=== PATIENT | male | born 1965 | race Caucasian/White ===

== ENCOUNTER → 2018-04-01 | Outpatient (CLI) | payer BC ==
--- NOTE | 2018-04-01 09:04 | MR ---
EXAMINATION TYPE: MR shoulder LT wo con DATE OF EXAM: 04/01/2018 COMPARISON: NONE HISTORY: Left shoulder pain, impingement syndrome, rotator cuff tendinitis, rotator cuff sprain, poss ible rotator cuff tear all per order. Pain with loss of strength and difficulty raising arm overhead for 5 weeks after tripping injury per patient. TECHNIQUE: Multiplanar, multisequence imaging of the left shoulder is performed without contrast. FINDINGS: Rotator Cuff: There is acute full-thickness retracted tear supraspinatus tendon retracted to level of acromioclavicular joint seen best paracoronal image 11. Full-thickness retracted tear of the infrasp inatus tendon is also present. There is focal fluid signal at this level extending to level of the po sterior margin of the humeral head. Subscapularis tendon is felt intact axial image 12 with surroundi ng fluid. There is perhaps mild generalized muscular atrophy. Acromioclavicular Joint: Moderate to severe narrowing and capsular hypertrophy with mild to moderate spurring at acromioclavicular joint is present. Distal acromion morphology is unremarkable. Some spur ring from inferior aspect distal clavicle affects the underlying fat plane. Distal clavicle is slight ly more inferior position relative to acromion. Glenohumeral Joint: Moderate glenohumeral joint effusion is seen. High riding humeral head is present . Moderate to severe superior narrowing is noted Labrum: Degenerative increased signal superior labrum noted paracoronal image 12 for reference. Biceps Tendon: The long head of biceps is in normal location within bicipital groove. Intracapsular p ortion shows thickening and slight increased signal. Bone marrow signal: Subchondral cystic change lateral humeral head is present. Other: No additional significant abnormality is appreciated. IMPRESSION: 1. Full-thickness retracted tears of the supraspinatus and infraspinatus tendons felt acute with high riding humeral head suggesting underlying instability. Other findings as noted above.
== END ==
LOC: RADMRIMAIN 08:15
PROVIDERS: ATTEND Orthopaedic Surgery Sports Medicine
DX: M75.102 Unspecified rotator cuff tear or rupture of left shoulder, not specified as traumatic (principal)

== ENCOUNTER → 2022-01-13 | Outpatient (CLI) | payer BC ==
--- NOTE | 2022-01-13 07:56 | US ---
"EXAMINATION TYPE: US abdomen complete DATE OF EXAM: 01/13/2022 COMPARISON: NONE CLINICAL HISTORY: 56-year-old male R10.89 ABD PAIN. TECHNIQUE: Multiple sonographic images of the abdomen are obtained. FINDINGS: EXAM MEASUREMENTS: Liver Length: 12.4 cm Gallbladder Wall: 0.2 cm CBD: 0.4 cm Spleen: 9.4 cm Right Kidney: 10.6 x 5.3 x 6.0 cm Left Kidney: 10.7 x 6.6 x 6.2 cm Pancreas: Obscured by bowel gas Liver: wnl Gallbladder: No stones seen Evidence for sonographic Garrett's sign: No CBD: wnl Spleen: wnl Right Kidney: No hydronephrosis or masses seen Left Kidney: upper pole cyst measures 3.3 x 2.8 x 2.9 cm. No hydronephrosis. Upper IVC: wnl Abd Aorta: distal AAA measures 5.2 x 5.4 cm, heavily calcified throughout. Unable to exclude signifi cant atherosclerotic narrowing at the bilateral proximal common carotid arteries which measure mildly aneurysmal at 2.3 and 2.0 cm on the right and left sides, respectively. IMPRESSION: 1. Incidental infrarenal abdominal aortic aneurysm measuring up to 5.4 cm. 2. Heavy atherosclerotic calcifications throughout extending to the mildly aneurysmal bilateral commo n iliac arteries which measure up to 2.3 cm. Unable to exclude significant common iliac artery stenos es. 3. No gallstones or biliary ductal dilatation. Suboptimal visualization of the pancreas. A Maverick level critical message alert has been initiated for Westley Barber MD via the [employer] [facility] | Critical Results System on 01/13/2022 4:53 AM. This message alert has been sent to Segun Barber MD via the preferences provided by the clinician for the receipt of Radiology Critical F indings. Message ID [id number]."
--- NOTE | 2022-01-13 12:28 | US ---
EXAMINATION TYPE: US carotid duplex BILAT DATE OF EXAM: 01/13/2022 COMPARISON: NONE CLINICAL HISTORY: 56-year-old male R09.89 CAROTID BRUIT. TECHNIQUE: Carotid duplex ultrasound examination. Indirect Doppler criteria was utilized. FINDINGS: EXAM MEASUREMENTS: RIGHT: Peak Systolic Velocity (PSV) cm/sec ----- Right CCA: 119.0 ----- Right ICA: 147.0 ----- Right ECA: 130.0 ICA/CCA ratio: 1.24 RIGHT: End Diastole cm/sec ----- Right CCA: 40.6 ----- Right ICA: 51.4 ----- Right ECA: 31.7 LEFT: Peak Systolic Velocity (PSV) cm/sec ----- Left CCA: 133.0 ----- Left ICA: 132.0 ----- Left ECA: 142.0 ICA/CCA ratio: 0.99 LEFT: End Diastole cm/sec ----- Left CCA: 45.4 ----- Left ICA: 44.6 ----- Left ECA: 31.7 VERTEBRALS (direction of flow): Right Vertebral: Antegrade Left Vertebral: Retrograde Rhythm: Normal HEALTH PLAN ADVISOR NOTES: Heavily calcified vessels throughout. Mildly elevated velocities on bilateral ECA' s & ICA's. Retrograde left vert. IMPRESSION: 1. Heavy atherosclerotic calcifications bilaterally. Measurements suggest moderate (50-69%) bilateral proximal ICA stenoses. 2. Retrograde flow detected left vertebral artery. Correlate for possible subclavian steal syndrome. Criteria for Assigning % of Stenosis / Diameter reduction (Estimation based on the indirect measurements of the internal carotid artery velocities (ICA PSV). 1. Normal (no stenosis)=ICA PSV < 125 cm/s: ratio < 2.0: ICA EDV<40 cm/s. 2. Less than 50% stenosis=ICA PSV < 125 cm/s: ratio < 2.0: ICA EDV<40 cm/s. 3. 50 to 69% stenosis=ICA PSV of 125 to 230 cm/s: ration 2.0 ? 4.0: ICA EDV 40-100 cm/s. 4. Greater than 70% stenosis to near occlusion= ICA PSV > 230 cm/s: ratio > 4.0: ICA EDV > 100 cm/s. 5. Near occlusion= ICA PSV velocities may be low or undetectable: variable ratio and ICA EDV. 6. Total occlusion=unable to detect flow.
== END | disposition home or self-care (01) ==
LOC: RADUSWWP 06:59
PROVIDERS: ATTEND Family Medicine
DX: I65.23 Occlusion and stenosis of bilateral carotid arteries (principal); F17.200 Nicotine dependence, unspecified, uncomplicated
CPT/HCPCS: 76700; 93880

== ENCOUNTER → 2022-01-20 | Outpatient (CLI) | payer BC ==
--- NOTE | 2022-01-20 08:18 | CTL ---
EXAMINATION TYPE: CT Low Dose Lung DATE OF EXAM ORDERED: 01/20/2022 HISTORY: Long-term tobacco use. Lung cancer screening CT DLP: 114.[address] CTDI: 2.9 mGy Automated exposure control for dose reduction was used. SCREENING VISIT: Baseline COMPARISON: None TECHNIQUE: Low dose computed tomography scan was performed through the chest at 1 mm thick sections a nd reconstructed images in multiple planes at 1 mm and [address] DIAGNOSTIC QUALITY: Satisfactory FINDINGS: LUNG NODULES: Present, detailed below: There is a 6 x 5 mm peripheral LLL nodule on axial image 166. There is a 5 x 4 mm peripheral RUL nodule on axial image 53. LUNGS: COPD: Severity: Mild Fibrosis: Severity: Mild biapical Lymph nodes: None Other findings: RIGHT PLEURAL SPACE: Effusion: None Calcification: None Thickening: None Pneumothorax: None LEFT PLEURAL SPACE: Effusion: None Calcification: None Thickening: None Pneumothorax: None HEART: Heart Size: Normal Coronary Calcification: Large Pericardial Effusion: None OTHER FINDINGS: Upper abdomen: None Bony thorax: There is S-shaped scoliotic curvature Supraclavicular region: None Other: Moderate calcified plaque aortic arch extends into 3 vessels IMPRESSION: Mild emphysematous change with diffuse small nodules up to [address] LUNG RAD AND CT CHEST RECOMMENDATION: Lung-Rad 2 Benign Appearance or Behavior: Continue annual sc reening with LDCT in 12 months. S Modifier (other clinically significant findings): S Severe coronary artery calcification should be correlated with additional cardiac risk factors
== END | disposition home or self-care (01) ==
LOC: RADCTMAIN 06:33
PROVIDERS: ATTEND Family Medicine
DX: Z12.2 Encounter for screening for malignant neoplasm of respiratory organs (principal); J43.9 Emphysema, unspecified; Z87.891 Personal history of nicotine dependence
CPT/HCPCS: 71271

== ENCOUNTER 2023-05-21 07:33 | Inpatient (IN) | payer OTHER ==
--- NOTE | 2023-05-21 07:58 | ED ---
General Adult HPI - General Chief complaint: Shortness of Breath Stated complaint: SOB Time Seen by Provider: 05/21/23 07:48 Source: patient, EMS Mode of arrival: EMS Limitations: no limitations - History of Present Illness Initial comments: Dictation was produced using [employer] dictation software. please excuse any grammatical, word or spelling errors. Chief Complaint: 57-year-old male with past medical history of COPD presents to the emergency department for dyspnea History of Present Illness: Patient is a 57-year-old male has past medical history of COPD and heart conditions. Patient states he became short of breath at approximately 3 PM. Patient was brought in from home by EMS. EMS states that patient had acute respiratory symptoms beginning at 3 AM in the morning. Upon initial evaluation EMS states that patient appeared to be significantly distressed with pale skin and lethargy. He was placed on positive airway ventilation with improvement of his condition. He was given 1 albuterol and brought to the ER with lights and sirens. According to EMS patient's symptomatology significantly improved. They were not able to get a blood pressure however he was found to be tachycardic. Patient at the bedside able to provide history of present illness states that he has heart and lung conditions. Does not know if he has history of heart failure. States that he is allergic to statins. Patient states he went to bed fine last night woke up abruptly due to severe dyspnea. The ROS documented in this emergency department record has been reviewed and confirmed by me. Those systems with pertinent positive or negative responses rivas ve been documented in the HPI. All other systems are other negative and/or noncontributory. - Related Data Home Medications Medication Instructions Recorded Confirmed Adhs 2 tab PO BID 05/21/23 05/21/23 Aspirin EC [Ecotrin Low Dose] 81 mg PO DAILY 05/21/23 05/21/23 Bio-3b-G 3 tab PO DAILY 05/21/23 05/21/23 Bio-C-Plus 1 - 3 tab PO DAILY 05/21/23 05/21/23 De-Stress 1 tab PO DAILY 05/21/23 05/21/23 Purified Chondroitin Sulfates 1 - 3 tab PO DAILY 05/21/23 05/21/23 Super Beets Chew 2 tab PO DAILY 05/21/23 05/21/23 Allergies Allergy/AdvReac Type Severity Reaction Status Date / Time [id number] Reductase AdvReac Unknown Verified 05/21/23 09:30 Inhibitor Review of Systems ROS Statement: Those systems with pertinent positive or pertinent negative responses have been documented in the HPI. ROS Other: All systems not noted in ROS Statement are negative. Past Medical History Past Medical History: COPD Additional Past Medical History / Comment(s): tripple A 5.5, History of Any Multi-Drug Resistant Organisms: None Reported Past Surgical History: Orthopedic Surgery Past Psychological History: No Psychological Hx Reported Smoking Status: Current every day smoker Past Alcohol Use History: Occasional Past Drug Use History: Marijuana General Exam - General Exam Comments Initial Comments: PHYSICAL EXAM: General Impression: Alert and oriented x3, not in acute distress, CPAP in place HEENT: Normocephalic atraumatic, extra-ocular movements intact, pupils equal and reactive to light bilaterally, mucous membranes moist. Cardiovascular: Heart regular rate and rhythm Chest: Mild retractions, mild tachypnea, diffuse crackles Abdomen: abdomen soft, non-tender, non-distended, no organomegaly Musculoskeletal: Pulses present and equal in all extremities, 1+ pitting edema Motor: no focal deficits noted Neurological: CN II-XII grossly intact, no focal motor or sensory deficits noted Skin: Intact with no visualized rashes Psych: Normal affect and mood Limitations: no limitations Course Vital Signs 05/21/23 05/21/23 05/21/23 07:34 07:43 07:44 Temperature Pulse Rate 122 H Respiratory 32 H 32 H Rate Blood Pressure 118/101 O2 Sat by Pulse 95 Oximetry Fraction of Inspired Oxygen (FIO2) 05/21/23 05/21/23 05/21/23 07:46 07:51 07:53 Temperature 97 F L Pulse Rate Respiratory Rate Blood Pressure O2 Sat by Pulse Oximetry Fraction of 100 70 Inspired Oxygen (FIO2) 05/21/23 05/21/23 05/21/23 08:38 08:52 08:57 Temperature Pulse Rate 109 H Respiratory 28 H Rate Blood Pressure 121/84 O2 Sat by Pulse 92 L Oximetry Fraction of 50 70 Inspired Oxygen (FIO2) 05/21/23 09:00 Temperature Pulse Rate Respiratory Rate Blood Pressure O2 Sat by Pulse 96 Oximetry Fraction of Inspired Oxygen (FIO2) - Reevaluation(s) Reevaluation #1: 05/21/23 07:57 [id number] bedside ultrasound was performed showing lung Rockets in anterior upper lung arriola bilaterally suggesting component of left ventricular heart failure Reevaluation #2: 05/21/23 08:30 More history was obtained from who is a medical professional states that he has been seeing upper extremity surgeon for labile blood pressures and l heart rates. Has not had an echocardiogram. Apparently he is scheduled for an echocardiogram soon. He had some pot roast last night which she states was salty and taste. request that patient be transferred to [facility] system which is where he gets most of his medical care. Reevaluation #3: 05/21/23 08:48 I was able to obtain an EKG from May 12, 2023. EKG compared to today's EKG showing worsening widening of the QRS. There is a left bundle branch block. EKG does not meet Sgarbossa criteria. Reevaluation #4: 05/21/23 08:58 Family requested patient be transferred to [facility]. Spoke with Celia from [facility] transfer line states that they have long waits for transfers. It was explained that it may be more than 24 hours before patient will be physically transferred to [facility]. This was discussed with family and they are request was that patient be admitted here to see our team. Reevaluation #5: 05/21/23 09:32 Case discussed in detail with Dr. Urbano including EKG, lab studies including troponin, clinical presentation and x-ray. Patient likely will need a cardiac catheterization. Dr. Urbano states that he will be rounding on the patient soon. Patient started on heparin and given aspirin. EKG Findings - EKG Comments: EKG Findings:: My EKG interpretation: Ventricular rate 117, sinus tachycardia, parable 181, cures 142, QTc 396. No NE prolongation, no QTC prolongation, no ST or T-wave changes noted. No old EKG for comparison, left bundle branch block Medical Decision Making - Medical Decision Making Was pt. sent in by a medical professional or institution (, PA, CORPORATE [employer], urgent care, hospital, or alf...) When possible be specific @ -No Did you speak to anyone other than the patient for history (EMS, parent, family, police, friend...)? What history was obtained from this source @ -Patient's medical details were discussed with at the bedside. See ab ove Case also discussed with EMS Did you review nursing and triage notes (agree or disagree)? Why? @ -I reviewed and agree with nursing and triage notes Were old charts reviewed (outside hosp., previous admission, EMS record, old EKG, old radiological studies, urgent care reports/EKG's, alf records)? Report findings @ -Previous EKG was reviewed from outside facility as discussed above Differential Diagnosis (chest pain, altered mental status, abdominal pain women, abdominal pain men, vaginal bleeding, musculoskeletal, weakness, fever, dyspnea, syncope, headache, dizziness, GI bleed, back pain, seizure, CVA, palpatations, mental health)? @ -Differential Dyspnea: Coronary syndrome, arrhythmia, tamponade, asthma, COPD, pulmonary embolism, pneumonia, pneumothorax, pulmonary effusion, anaphylaxis, diabetic ketoacidosis, flailed chest, pulmonary contusion, diaphragmatic rupture, anemia, neuromuscular, this is not meant to be an all-inclusive list. EKG interpreted by me (3pts min.). @ -See above X-rays interpreted by me (1pt min.). @ -X-ray of the chest shows pulmonary edema CT interpreted by me (1pt min.). @ -None done U/S interpreted by me (1pt. min.). @ -None done What testing was considered but not performed or refused? (CT, X-rays, U/S, labs)? Why? @ -None What meds were considered but not given or refused? Why? @ -None Did you discuss the management of the patient with other professionals (professionals i.e. , PA, [employer], lab, RT, psych nurse, socially responsible investment adviser, routeman, teacher, youth probation officer, adult protective caseworker)? Give summary @ -See above. Case also discussed with Dr. Stein for admission Was smoking cessation discussed for >3mins.? @ -No Was critical care preformed (if so, how long)? @ -Yes, 33 minutes Were there social determinants of health that impacted care today? How? (Homelessness, low income, unemployed, alcoholism, drug addiction, transport ation, low edu. Level, literacy, decrease access to med. care, skilled nursing, rehab)? @ -No Was there de-escalation of care discussed even if they declined (Discuss DNR or withdrawal of care, Hospice)? DNR status @ -No What co-morbidities impacted this encounter? (DM, HTN, Smoking, COPD, CAD, Cancer, CVA, ARF, Chemo, Hep., AIDS, mental health diagnosis, sleep apnea, morbid obesity)? @ -None Was patient admitted / discharged? Hospital course, mention meds given and route, prescriptions, significant lab abnormalities, going to OR and other pertinent info. @ -57-year-old male presents to the emergency department for clinical presentation consistent with new onset cardiomyopathy likely ischemic. Vital signs upon arrival are within acceptable limits. Patient placed on BiPAP for several minutes given some Lasix. His blood pressure was soft and it was felt that nitroglycerin might reduce his blood pressure even further. He is improved with BiPAP therapy. Laboratory evaluation obtained showing stress leukocytosis of 18.2. Lactic acidosis of 4.1, troponin of 1.90 with a BNP of 4000. Chest x- ray shows pulmonary edema. Case discussed with cardiology. Patient denies any such ACS type symptoms. Patient will be admitted. Started on heparin given aspirin. Undiagnosed new problem with uncertain prognosis? @ -No Drug Therapy requiring intensive monitoring for toxicity (Heparin, Nitro, In sulin, Cardizem)? @ -No Were any procedures done? @ -No Diagnosis/symptom? Acute, or Chronic, or Acute on Chronic? Uncomplicated (without systemic symptoms) or Complicated (systemic symptoms)? @ -New onset cardiomyopathy Side effects of treatment? @ -No Exacerbation, Progression, or Severe Exacerbation? @ -No Poses a threat to life or bodily function? How? (Chest pain, USA, ME, pneumonia, PE, COPD, DKA, ARF, appy, cholecystitis, CVA, Diverticulitis, Homicidal, Suicidal, threat to staff... and all critical care pts) @ -yes - Lab Data Result diagrams: 05/21/23 07:50 05/21/23 07:50 Lab Results 05/21/23 05/21/23 05/21/23 Range/Units 07:50 07:50 07:50 WBC 18.2 H (3.8-10.6) k/uL RBC 5.29 (4.30-5.90) m/uL Hgb 16.8 (13.0-17.5) gm/dL Hct 51.1 (39.0-53.0) % MCV 96.5 (80.0-100.0) fL MCH 31.8 (25.0-35.0) pg MCHC 32.9 (31.0-37.0) g/dL RDW 13.3 (11.5-15.5) % Plt Count 286 (150-450) k/uL MPV 8.8 Neutrophils % 90 % Lymphocytes % 6 % Monocytes % 3 % Eosinophils % 1 % Basophils % 0 % Neutrophils # 16.4 H (1.3-7.7) k/uL Lymphocytes # 1.1 (1.0-4.8) k/uL Monocytes # 0.5 (0-1.0) k/uL Eosinophils # 0.1 (0-0.7) k/uL Basophils # 0.1 (0-0.2) k/uL PT 10.1 (10.0-12.5) sec INR 0.9 (<1.2) APTT 23.7 (22.0-30.0) sec Sodium 138 (137-145) mmol/L Potassium 5.1 (3.5-5.1) mmol/L Chloride 105 (98-107) mmol/L Carbon Dioxide 21 L (22-30) mmol/L Anion Gap 12 mmol/L BUN 25 H (9-20) mg/dL Creatinine 1.35 H (0.66-1.25) mg/dL Est GFR (CKD-EPI)AfAm 66 (>60 ml/min/1.73 sqM) Est GFR (CKD-EPI)NonAf 57 (>60 ml/min/1.73 sqM) Glucose 232 H (74-99) mg/dL Plasma Lactic Acid Osiel (0.7-2.0) mmol/L Calcium 9.8 (8.4-10.2) mg/dL Magnesium 2.2 (1.6-2.3) mg/dL Total Bilirubin 0.8 (0.2-1.3) mg/dL AST 85 H (17-59) U/L ALT 40 (4-49) U/L Alkaline Phosphatase 56 (38-126) U/L Troponin I (0.000-0.034) ng/mL NT-Pro-B Natriuret Pep 4450 pg/mL Total Protein 7.3 (6.3-8.2) g/dL Albumin 4.4 (3.5-5.0) g/dL 05/21/23 05/21/23 Range/Units 07:50 07:50 WBC (3.8-10.6) k/uL RBC (4.30-5.90) m/uL Hgb (13.0-17.5) gm/dL Hct (39.0-53.0) % MCV (80.0-100.0) fL MCH (25.0-35.0) pg MCHC (31.0-37.0) g/dL RDW (11.5-15.5) % Plt Count (150-450) k/uL MPV Neutrophils % % Lymphocytes % % Monocytes % % Eosinophils % % Basophils % % Neutrophils # (1.3-7.7) k/uL Lymphocytes # (1.0-4.8) k/uL Monocytes # (0-1.0) k/uL Eosinophils # (0-0.7) k/uL Basophils # (0-0.2) k/uL PT (10.0-12.5) sec INR (<1.2) APTT (22.0-30.0) sec Sodium (137-145) mmol/L Potassium (3.5-5.1) mmol/L Chloride (98-107) mmol/L Carbon Dioxide (22-30) mmol/L Anion Gap mmol/L BUN (9-20) mg/dL Creatinine (0.66-1.25) mg/dL Est GFR (CKD-EPI)AfAm (>60 ml/min/1.73 sqM) Est GFR (CKD-EPI)NonAf (>60 ml/min/1.73 sqM) Glucose (74-99) mg/dL Plasma Lactic Acid Osiel 4.1 H* (0.7-2.0) mmol/L Calcium (8.4-10.2) mg/dL Magnesium (1.6-2.3) mg/dL Total Bilirubin (0.2-1.3) mg/dL AST (17-59) U/L ALT (4-49) U/L Alkaline Phosphatase (38-126) U/L Troponin I 1.970 H* (0.000-0.034) ng/mL NT-Pro-B Natriuret Pep pg/mL Total Protein (6.3-8.2) g/dL Albumin (3.5-5.0) g/dL Disposition Clinical Impression: Cardiomyopathy Disposition: ADMITTED IP TO THIS HOSP Condition: Serious Referrals: Westley Barber MD [Primary Care Provider] - 1-2 days Decision Time: 09:40
[2023-05-21] MEDS: methylPREDNISolone SOD SUCCI 125 MG/2 ML VIAL IV STA (07:59)
[2023-05-21] MEDS: FUROSEMIDE 10 MG/ML 4 ML VIAL IV STA (08:02)
[2023-05-21 08:03] LABS: Basophils # (A) 0.1 k/uL (0-0.2); Basophils % (A) 0 %; Eosinophils # (A) 0.1 k/uL (0-0.7); Eosinophils % (A) 1 %; HCT 51.1 % (39.0-53.0); HGB 16.8 gm/dL (13.0-17.5); Lymphocytes # (A) 1.1 k/uL (1.0-4.8); Lymphocytes % (A) 6 %; MCH 31.8 pg (25.0-35.0); MCHC 32.9 g/dL (31.0-37.0); MCV 96.5 fL (80.0-100.0); Mean Platelet Volume 8.8; Monocytes # (A) 0.5 k/uL (0-1.0); Monocytes % (A) 3 %; Neutrophils # (A) 16.4 k/uL (1.3-7.7); Neutrophils % (A) 90 %; Platelet Count 286 k/uL (150-450); RBC 5.29 m/uL (4.30-5.90); RDW 13.3 % (11.5-15.5); WBC 18.2 k/uL (3.8-10.6)
[2023-05-21 08:12] LABS: INR 0.9 (<1.2); Partial Thromboplastin Time 23.7 sec (22.0-30.0); Prothrombin Time 10.1 sec (10.0-12.5)
[2023-05-21 08:13] LABS: ALT 40 U/L (4-49); African American GFR (CKD) 66 (>60 ml/min/1.73 sqM); Anion Gap 12 mmol/L; Blood Urea Nitrogen 25 mg/dL (9-20); Calcium 9.8 mg/dL (8.4-10.2); Carbon Dioxide 21 mmol/L (22-30); Chloride 105 mmol/L (98-107); Glucose 232 mg/dL (74-99); Non-African American GFR(CKD) 57 (>60 ml/min/1.73 sqM); Sodium 138 mmol/L (137-145); Total Bilirubin 0.8 mg/dL (0.2-1.3)
[2023-05-21 08:21] LABS: NT-Pro-B-Type Natriuretic Pept 4450 pg/mL
--- NOTE | 2023-05-21 08:25 | XR ---
EXAMINATION TYPE: XR chest 1V portable DATE OF EXAM: 05/21/2023 8:07 AM CLINICAL INDICATION:Male, 57 years old with history of SOB; COMPARISON: 01/20/2022 CT TECHNIQUE: XR chest 1V portable Frontal view of the chest. FINDINGS: Lungs/Pleura: There is no evidence of pleural effusion, focal consolidation, or pneumothorax. Pulmonary vascularity: Pulmonary vascular congestion. Heart/mediastinum: Cardiomediastinal silhouette is unremarkable. Musculoskeletal: No acute osseous pathology. IMPRESSION: mild pulmonary vascular congestion. Correlate with BNP for congestive heart failure.
[2023-05-21 08:28] LABS: AST 85 U/L (17-59); Albumin 4.4 g/dL (3.5-5.0); Alkaline Phosphatase 56 U/L (38-126); Magnesium 2.2 mg/dL (1.6-2.3); Potassium 5.1 mmol/L (3.5-5.1); Total Protein 7.3 g/dL (6.3-8.2)
[2023-05-21] MEDS ORDERED: NALOXONE 0.4 MG/ML 1 ML VIAL IV PRN (08:56)
[2023-05-21] MEDS ORDERED: HEPARIN SODIUM 1,000 UN/ML (10ML VL) IV PRN (09:32)
[2023-05-21] MEDS ORDERED: NITROGLYCERIN SL TABS 0.4 MG TAB SUBLINGUAL PRN (09:56)
--- NOTE | 2023-05-21 09:59 | P.CRDCN ---
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 He does admit to some episodes of chest pain and heaviness usually if his heart rate increases or if his blood pressure goes up over last few months. He [place] bilingual [place] and apparently no recent workup however and has not had an echo or stress test. With his PhD he was seeing a vascular surgeon without any recommendations for any intervention and additionally has a abdominal aortic aneurysm measuring approximately 5.1 cm. He is still smoking however down to approximately 1 cigarette per day. Has family history of mother with bypass in her 50s. 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 He admits that initially he felt a jittery sensation which normally happens when he has high blood pressure however developed more shortness of breath and not really any chest pain or pressure. He had mild tightness however currently states he does not have any actual chest tightness. He does have a history of left bundle-branch block however EKG does have sinus tachycardia with left bundle branch block with worsened ST elevation for V2 through V4 with borderline elevation in V5. White blood cell count 18, creatinine 1.3, lactic acid 4.1, AST 85, ALT 40, troponin 1.9, proBNP 4450. Chest x-ray shows diffuse pulmonary edema. He is currently on BiPAP however much more comfortable. He does admit to chronic mild kidney issues with creatinine stable 1.3. REVIEW OF SYSTEMS At the time of my exam: CONSTITUTIONAL: Denies fever or chills. CARDIOVASCULAR: Denies chest pain, +shortness of breath, orthopnea, PND or palpitations. RESPIRATORY: Denies cough. GASTROINTESTINAL: Denies abdominal pain, diarrhea, constipation, nausea or vomiting. MUSCULOSKELETAL: Denies myalgias. NEUROLOGIC: Denies numbness, tingling or weakness. ENDOCRINE: Denies fatigue, weight change, polydipsia or polyurina. GENITOURINARY: Denies burning, hematuria or urgency with micturation. HEMATOLOGIC: Denies history of anemia or bleeding. PHYSICAL EXAMINATION Vital signs reviewed. CONSTITUTIONAL: No apparent distress, however on bipap HEENT: Head is normocephalic. Pupils are equal, round. Sclerae anicteric. Mucous membranes of the mouth are moist. No JVD. No carotid bruit. CHEST EXAMINATION: +crackles. No chest wall tenderness is noted on palpation or with deep breathing. HEART EXAMINATION: Regular rate and rhythm. S1, S2 heard. No murmurs, gallops or rub. ABDOMEN: Soft, nontender. Positive bowel sounds. EXTREMITIES: 2+ peripheral pulses, no lower extremity edema and no calf tenderness. NEUROLOGIC EXAMINATION: Patient is awake, alert and oriented x3. ASSESSMENT 1. Non-STEMI 2. Acute on chronic heart failure, possibly systolic 3. Hypertension 4. Left subclavian steal 5. PAD 6. Coronary artery calcifications 7. Left bundle branch block 8. History of abdominal aortic aneurysm 5.1 9. Tobacco abuse 10. Family history of CAD 11. Chronic kidney disease, per patient stable at 1.3 PLAN Patient with acute heart failure which may be exacerbated by nonsteady. Patient however not having any angina like he has been having in terms of his normal chest pressure tightness currently. Discussed urgent heart catheterization however given multiple risk factors. Aspirin and heparin drip. Check 2-D echo. Further recommendations to follow. Past Medical History Past Medical History: COPD Additional Past Medical History / Comment(s): prabha Eagle 5.5, History of Any Multi-Drug Resistant Organisms: None Reported Past Surgical History: Orthopedic Surgery Past Psychological History: No Psychological Hx Reported Smoking Status: Current every day smoker Past Alcohol Use History: Occasional Past Drug Use History: Marijuana Medications and Allergies Home Medications Medication Instructions Recorded Confirmed Type Adhs 2 tab PO BID 05/21/23 05/21/23 History Aspirin EC [Ecotrin Low Dose] 81 mg PO DAILY 05/21/23 05/21/23 History Bio-3b-G 3 tab PO DAILY 05/21/23 05/21/23 History Bio-C-Plus 1 - 3 tab PO DAILY 05/21/23 05/21/23 History De-Stress 1 tab PO DAILY 05/21/23 05/21/23 History Purified Chondroitin Sulfates 1 - 3 tab PO DAILY 05/21/23 05/21/23 History Super Beets Chew 2 tab PO DAILY 05/21/23 05/21/23 History Allergies Allergy/AdvReac Type Severity Reaction Status Date / Time Qgbegox-MHD-[id number] Reductase AdvReac Unknown Verified 05/21/23 09:30 Inhibitor Physical Exam Vitals: Vital Signs Temp Pulse Resp BP Pulse Ox FiO2 05/21/23 09:00 96 05/21/23 08:57 70 05/21/23 08:52 50 05/21/23 08:38 109 H 28 H 121/84 92 L 05/21/23 07:53 70 05/21/23 07:51 97 F L 05/21/23 07:46 100 05/21/23 07:44 32 H 05/21/23 07:43 95 05/21/23 07:34 122 H 32 H 118/101 Intake and Output 05/20/23 05/21/23 05/21/23 22:59 06:59 14:59 Other: Weight 86.183 kg Results 05/21/23 07:50 05/21/23 07:50 Cardiac Enzymes 05/21/23 05/21/23 Range/Units 07:50 07:50 AST 85 H (17-59) U/L Troponin I 1.970 H* (0.000-0.034) ng/mL Coagulation 05/21/23 Range/Units 07:50 PT 10.1 (10.0-12.5) sec APTT 23.7 (22.0-30.0) sec CBC 05/21/23 Range/Units 07:50 WBC 18.2 H (3.8-10.6) k/uL RBC 5.29 (4.30-5.90) m/uL Hgb 16.8 (13.0-17.5) gm/dL Hct 51.1 (39.0-53.0) % Plt Count 286 (150-450) k/uL Comprehensive Metabolic Panel 05/21/23 Range/Units 07:50 Sodium 138 (137-145) mmol/L Potassium 5.1 (3.5-5.1) mmol/L Chloride 105 (98-107) mmol/L Carbon Dioxide 21 L (22-30) mmol/L BUN 25 H (9-20) mg/dL Creatinine 1.35 H (0.66-1.25) mg/dL Glucose 232 H (74-99) mg/dL Calcium 9.8 (8.4-10.2) mg/dL AST 85 H (17-59) U/L ALT 40 (4-49) U/L Alkaline Phosphatase 56 (38-126) U/L Total Protein 7.3 (6.3-8.2) g/dL Albumin 4.4 (3.5-5.0) g/dL Current Medications Generic Name Dose Route Start Last Admin Trade Name Freq PRN Reason Stop Dose Admin Heparin Sodium (Porcine) 0 unit 05/21/23 09:32 Heparin Sodium 1,000 Un/Ml (10ml Vl) IV PER PROTOCOL PRN Low PTT Protocol Sodium Chloride 1,000 mls @ 20 mls/hr 05/21/23 09:00 Saline 0.9% IV .Q24H [facility] Heparin Sodium/Sodium Chloride 250 mls @ 10 mls/hr 05/21/23 10:00 25,000 unit/ Sodium Chloride IV .Q24H [facility] Protocol 11.603 UNITS/KG/HR Naloxone HCl 0.2 mg 05/21/23 08:56 Naloxone 0.4 Mg/Ml 1 Ml Vial IV Q2M PRN Opioid Reversal Intake and Output 05/20/23 05/21/23 05/21/23 22:59 06:59 14:59 Other: Weight 86.183 kg Patient Weight 05/22/23 06:59 Weight 86.183 kg 05/21/23 07:50 05/21/23 07:50
[2023-05-21] MEDS: HEPARIN SODIUM 1,000 UN/ML (10ML VL) IV ONE ×2 (10:37→11:37)
[2023-05-21] MEDS: HEPARIN SOD,PORK IN 0.45% NACL 25,000 UNIT in 0.45% NACL 1 250ML.BAG IV SCH ×2 (10:38→14:34)
[2023-05-21] MEDS: ASPIRIN 325 MG TAB PO STA (10:39)
[2023-05-21] MEDS: ASPIRIN 81 MG PO STA (10:39)
[2023-05-21] MEDS: ATORVASTATIN 80 MG TAB PO STA (10:40)
[2023-05-21] MEDS: SODIUM CHLORIDE 0.9% 1,000 ML IV SCH ×2 (10:40→15:27)
[2023-05-21] MEDS ORDERED: HEPARIN SODIUM 1,000 UN/ML (10ML VL) ONE (10:45)
[2023-05-21] MEDS ORDERED: fentaNYL (PF) 50 MCG/ML 2 ML AMP ONE (10:45)
--- NOTE | 2023-05-21 11:03 | CA ---
Transthoracic Echo Report Name: Monica Franco Age: 57 Gender: M : 1965 Exam Date: 05/21/2023 11:05 Exam Location: [facility] Ht (in): 70 Wt (lb): 175 Ordering Physician: Miguel Urbano DO ([email or web address]) Attending/Referring Phys: Sole Molding Machine Operator Ryan Cardenas RD Procedure CPT: Indications: re: NSTEMI Cardiac Hx: Technical Quality: Technically difficult study Contrast 1: Total Dose (mL): Contrast 2: Total Dose (mL): MEASUREMENTS (Male / Female) Normal Values 2D ECHO LV Diastolic Diameter PLAX 6.2 cm 4.2 - 5.9 / 3.9 - 5.3 cm LV Systolic Diameter PLAX 5.3 cm IVS Diastolic Thickness 1.0 cm 0.6 - 1.0 / 0.6 - 0.9 cm LVPW Diastolic Thickness 1.1 cm 0.6 - 1.0 / 0.6 - 0.9 cm LV Relative Wall Thickness 0.3 LVOT Diameter 2.0 cm Aortic Root Diameter 3.2 cm LA Systolic Diameter LX 2.2 cm 3.0 - 4.0 / 2.7 - 3.8 cm LV Diastolic Volume MOD BP 110.9 cm??? 67 - 155 / 56 - 104 cm??? LV Systolic Volume MOD BP 69.1 cm??? 22 - 58 / 19 - 49 cm??? LV Ejection Fraction MOD BP 37.7 % >= 55 % LV Diastolic Volume MOD 4C 120.8 cm??? LV Systolic Volume MOD 4C 76.3 cm??? LV Ejection Fraction MOD 4C 36.9 % LV Diastolic Length 4C 9.2 cm LV Systolic Length 4C 8.6 cm LV Diastolic Volume MOD 2C 87.3 cm??? LV Systolic Volume MOD 2C 52.1 cm??? LV Ejection Fraction MOD 2C 40.4 % LV Diastolic Length 2C 7.8 cm LV Systolic Length 2C 7.0 cm LA Volume 55.7 cm??? 18 - 58 / 22 - 52 cm??? LA Volume Index 28.0 cm???/m??? 16 - 28 cm???/m??? DOPPLER AV Peak Velocity 59.6 cm/s AV Peak Gradient 1.4 mmHg LVOT Peak Velocity 60.4 cm/s LVOT Peak Gradient 1.5 mmHg LVOT Velocity Time Integral 7.9 cm LVOT Stroke Volume 23.8 cm??? LVOT Stroke Volume Index 12.1 ml/m??? AV Area Cont Eq pk 3.0 cm??? MV Peak Velocity 92.7 cm/s MV Peak Gradient 3.4 mmHg MV Mean Velocity 44.5 cm/s MV Mean Gradient 1.0 mmHg MV Velocity Time Integral 18.8 cm MR Peak Velocity 304.2 cm/s MR Peak Gradient 37.0 mmHg Mitral E Point Velocity 73.3 cm/s Mitral A Point Velocity 34.2 cm/s Mitral E to A Ratio 2.1 MV Deceleration Time 113.5 ms FINDINGS Left Ventricle Moderate left ventricular dilatation. Apical akinesis. Left ventricular ejection fraction is estimated at 10-15 %. Right Ventricle Normal right ventricular size. Right Atrium Normal right atrial size. Left Atrium Mild left atrial dilatation. LA volume index= 28ml/m2 Mitral Valve Structurally normal mitral valve. Mild MR. Aortic Valve Aortic valve not well visualized. No aortic stenosis. No aortic regurgitation. Tricuspid Valve Structurally normal tricuspid valve. Trace TR. Pulmonic Valve Pulmonic valve not well visualized. Pericardium Not well visualized. Aorta Normal size aortic root. CONCLUSIONS Technically limited views. Moderate LV cavity dilatation. Severely reduced LV systolic function. LVEF 10-15% Globally reduced LV systolic function, along with apical akinesis Mild pansystolic MR No pericardial effusion Previewed by: Dr Jt Cortez (Electronically Signed) Final Date: 21 May 2023 11:02
[2023-05-21] MEDS: SODIUM CHLORIDE 0.9% 1,000 ML IV ONE (11:14)
[2023-05-21] MEDS: LIDOCAINE 1% INJ 10MG/ML (30 ML VIAL-PF) SQ ONE (11:21)
[2023-05-21] MEDS: VERAPAMIL SYRINGE (5 MG/10 ML) INTRAARTER ONE (11:22)
[2023-05-21] MEDS: MIDAZOLAM 2 MG/2 ML VIAL IVP ONE ×2 (11:24→13:03)
[2023-05-21] MEDS: fentaNYL (PF) 50 MCG/1 ML VIAL IVP ONE (11:25)
[2023-05-21] MEDS ORDERED: TICAGRELOR 90 MG TAB ONE (11:46)
[2023-05-21] MEDS: HEPARIN SODIUM 1,000 UN/ML (10ML VL) IVP ONE (11:50)
[2023-05-21] MEDS: IOPAMIDOL-370 100ML BTL INJ ONE ×2 (11:51→12:54)
[2023-05-21] MEDS: TICAGRELOR 90 MG TAB PO ONE (11:54)
[2023-05-21] MEDS: FUROSEMIDE 10 MG/ML 4 ML VIAL IV ONE (11:55)
[2023-05-21] MEDS ORDERED: FUROSEMIDE 10 MG/ML 4 ML VIAL ONE (11:55)
[2023-05-21] MEDS: NITROGLYCERIN 1000MCG/10ML SYRINGE INTRACORON ONE (11:58)
[2023-05-21] MEDS: NITROGLYCERIN-D5W PMX 50 MG in DEXTROSE/WATER 1 250ML.BAG IV ONE (12:04)
[2023-05-21] MEDS: TIROFIBAN 12.5MG-250ML NS 250 ML IV ONE (12:05)
[2023-05-21] MEDS ORDERED: hydrALAZINE HCL 20 MG/ML 1 ML VIAL ONE (13:20)
[2023-05-21] MEDS: hydrALAZINE HCL 20 MG/ML 1 ML VIAL IVP ONE (13:20)
[2023-05-21] MEDS: IOPAMIDOL-300 100ML BTL INJ ONE (13:27)
[2023-05-21 14:10] LABS: Glucose,Whole Blood 180 mg/dL (70-110)
[2023-05-21 14:41] LABS: Basophils % (A) 0 %; Eosinophils # (A) 0.1 k/uL (0-0.7); Eosinophils % (A) 1 %; HCT 48.7 % (39.0-53.0); HGB 16.3 gm/dL (13.0-17.5); Lymphocytes # (A) 0.4 k/uL (1.0-4.8); Lymphocytes % (A) 3 %; MCHC 33.4 g/dL (31.0-37.0); MCV 95.6 fL (80.0-100.0); Mean Platelet Volume 8.2; Monocytes # (A) 0.3 k/uL (0-1.0); Monocytes % (A) 2 %; Neutrophils # (A) 15.8 k/uL (1.3-7.7); Neutrophils % (A) 95 %; Platelet Count 249 k/uL (150-450); RBC 5.09 m/uL (4.30-5.90); WBC 16.7 k/uL (3.8-10.6)
[2023-05-21 14:57] LABS: Partial Thromboplastin Time 95.9 sec (22.0-30.0); Prothrombin Time 10.9 sec (10.0-12.5)
[2023-05-21] MEDS: SODIUM BICARB (1 MEQ/ML) 12.5 ML in DEXTROSE 5% IN WATER 500 ML IV SCH (15:26)
[2023-05-21 15:38] LABS: Chol/HDL Ratio 5.47 Ratio; LDL Cholesterol,Calculated 163.4 mg/dL (0.0-131.0)
[2023-05-21 17:11] LABS: Partial Thromboplastin Time 39.6 sec (22.0-30.0); Prothrombin Time 10.9 sec (10.0-12.5)
[2023-05-21] MEDS: NITROGLYCERIN-D5W PMX 50 MG in DEXTROSE/WATER 1 250ML.BAG IV SCH (18:08)
[2023-05-21 18:33] LABS: African American GFR (CKD) 81 (>60 ml/min/1.73 sqM); Anion Gap 7 mmol/L; Blood Urea Nitrogen 33 mg/dL (9-20); Carbon Dioxide 17 mmol/L (22-30); Chloride 113 mmol/L (98-107); Glucose 147 mg/dL (74-99); Non-African American GFR(CKD) 70 (>60 ml/min/1.73 sqM); Sodium 137 mmol/L (137-145)
[2023-05-21 18:59] LABS: Potassium 4.6 mmol/L (3.5-5.1)
[2023-05-21 19:00] LABS: LDH 1526 U/L (120-246)
--- NOTE | 2023-05-21 19:31 | HP ---
HISTORY AND PHYSICAL CHIEF COMPLAINT: Shortness of breath. HISTORY OF PRESENT ILLNESS: This is the first known admission for this 57-year-old white male with advanced atherosclerotic cardiovascular disease. He has been a heavy smoker. For years, he has had hypertension and he had been found a year or so ago to have an abdominal aortic aneurysm and left subclavian steal. He was referred to [facility], where they were going to follow him and made numerous recommendations regarding not smoking, keeping his blood pressure under control, statins, etc. The patient is a significant denier. He will not take blood pressure medications, statins, etc. He was recently in the office and it was felt that the aneurysm was becoming quite large. [facility] had requested that he undergo further studies, which he has not done. Arrangements were made if some of these would be done. He has never had a coronary artery evaluation. When he was in the office recently, he stated he was taking numerous vitamin preparations as well as some other homeopathic things and that his "blood pressure was going down and he felt like the aneurysm was getting smaller." In the middle of the night, he developed extreme shortness of breath and came to the hospital where he was in acute congestive heart failure, pulmonary edema. Troponins were elevated. His EKG demonstrated ST-segment elevation in the precordial leads. He denied chest pain. REVIEW OF SYSTEMS: Otherwise noncontributory. He was not diaphoretic, nauseated and he had no aching in the jaw, arms, back, etc. His BNP was 4450 and the 1st troponin was up at 1.970. Lactic acid was 4.1. Remainder of history is unremarkable other than his smoking history. PHYSICAL EXAMINATION: VITAL SIGNS: Blood pressure was 112/64 with a pulse of 88 and regular. GENERAL: He appeared to be in no acute distress with BiPAP in place. HEAD, EARS, EYES, NOSE, MOUTH, AND THROAT: Otherwise normal. CHEST: Demonstrated decreased breath sounds with extensive rales throughout. CARDIAC: Demonstrates sinus rhythm. ABDOMEN: Soft. EXTREMITIES: Normal. IMPRESSION: 1. Acute anterior ST elevation myocardial infarction. 2. Acute pulmonary edema. 3. Advanced atherosclerotic cardiovascular disease. 4. Abdominal aortic aneurysm. 5. Left subclavian steal. 6. Chronic obstructive pulmonary disease. PLAN: Consult Cardiology and the patient will be taken to the chemistry lab instructor. MMODL / IJN: [id number] /
[2023-05-21] MEDS: FUROSEMIDE 10 MG/ML 4 ML VIAL IV SCH (20:20)
[2023-05-21] MEDS: TICAGRELOR 90 MG TAB PO SCH (20:20)
[2023-05-22 00:52] LABS: Glucose,Whole Blood 138 mg/dL (70-110)
[2023-05-22 01:42] LABS: Glucose 137 mg/dL (74-99)
[2023-05-22 01:43] LABS: African American GFR (CKD) 82 (>60 ml/min/1.73 sqM); Blood Urea Nitrogen 39 mg/dL (9-20); Calcium 9.1 mg/dL (8.4-10.2); Carbon Dioxide 19 mmol/L (22-30); Non-African American GFR(CKD) 71 (>60 ml/min/1.73 sqM); Potassium 4.3 mmol/L (3.5-5.1); Sodium 136 mmol/L (137-145)
[2023-05-22 02:07] LABS: LDH 1999 U/L (120-246)
[2023-05-22 02:12] LABS: Anion Gap 7 mmol/L; Chloride 110 mmol/L (98-107)
[2023-05-22 02:16] LABS: Partial Thromboplastin Time 33.1 sec (22.0-30.0)
[2023-05-22] MEDS: ALPRAZolam 0.5 MG TAB PO PRN (02:25)
[2023-05-22] MEDS: HEPARIN SODIUM 1,000 UN/ML (10ML VL) IV PRN (02:34)
[2023-05-22 04:57] LABS: Basophils % (A) 0 %; Eosinophils # (A) 0.1 k/uL (0-0.7); Eosinophils % (A) 1 %; HCT 42.4 % (39.0-53.0); HGB 14.1 gm/dL (13.0-17.5); Lymphocytes # (A) 1.1 k/uL (1.0-4.8); Lymphocytes % (A) 6 %; MCH 31.4 pg (25.0-35.0); MCHC 33.2 g/dL (31.0-37.0); MCV 94.7 fL (80.0-100.0); Mean Platelet Volume 8.4; Monocytes # (A) 1.1 k/uL (0-1.0); Monocytes % (A) 6 %; Neutrophils # (A) 17.8 k/uL (1.3-7.7); Neutrophils % (A) 87 %; Platelet Count 194 k/uL (150-450); RBC 4.48 m/uL (4.30-5.90); RDW 13.1 % (11.5-15.5); WBC 20.4 k/uL (3.8-10.6)
[2023-05-22 05:24] LABS: African American GFR (CKD) >90 (>60 ml/min/1.73 sqM); Anion Gap 6 mmol/L; Blood Urea Nitrogen 40 mg/dL (9-20); Carbon Dioxide 19 mmol/L (22-30); Chloride 111 mmol/L (98-107); Glucose 131 mg/dL (74-99); Magnesium 2.1 mg/dL (1.6-2.3); Non-African American GFR(CKD) 78 (>60 ml/min/1.73 sqM); Potassium 4.2 mmol/L (3.5-5.1); Sodium 136 mmol/L (137-145)
[2023-05-22 05:39] LABS: Glucose,Whole Blood 143 mg/dL (70-110)
[2023-05-22 06:18] LABS: LDH 1860 U/L (120-246)
[2023-05-22] MEDS ORDERED: HEPARIN SODIUM,PORCINE (1 ML) 2,500 UNIT in SODIUM CHLORIDE 0.9% 250 ML IRRIGATION PRN (07:00)
[2023-05-22] MEDS ORDERED: HEPARIN SODIUM,PORCINE 10,000 UNIT in SODIUM CHLORIDE 0.9% 1,000 ML IRRIGATION PRN (07:00)
--- NOTE | 2023-05-22 08:08 | P.PRCINT ---
Percutaneous Coronary Int. - Percutaneous Coronary Intervention Percutaneous Coronary Intervention: PROCEDURES PERFORMED: Left heart catheterization, bilateral coronary angiography, ultrasound guided arterial access, Impella CP placement from right femoral approach, Penumbra aspiration thrombextomy LAD, PCI left main into LAD with a 3.0 x 38mm Xience LEONARD, post dilated with a 4.0 NC, balloon angioplasty of circumflex with a 2.5 balloon, IVUS LAD, PCI RCA with overlapping 4.0 x 33mm distally, 4.0 x 38mm Xience LEONARD proximally, post dilated with a 5.0 mm NC balloon, shockwave lithotripsy angioplasty RCA with a 4.0 balloon DATE: 05/21/2023 INDICATION: NSTEMI, cardiogenic shock CONSENT:I have discussed the risks, benefits and alternative therapies for the above-mentioned procedure and for both sedation/analgesia as well as necessary blood product administration, if indicated, as they pertain to this patient. T he patient has indicated understanding and acceptance of the risks and procedures discussed. PROCEDURE: After the risks, benefits and alternatives of the above mentioned procedure explained in detail with the patient, informed consent was obtained. Patient was taken to the catheterization lab and prepped and draped in usual fashion. Ultrasound guidance was used to assess for arterial access. 1% lidocaine was used to anesthetize the right radial artery. A 6-Samoan sheath was placed in the right radial artery using modified Seldinger technique and ultrasound guidance. Left coronary angiography was performed with a 5-Samoan JL 3.5 catheter and right coronary angiography was performed with a 5-Samoan FR5 catheter in various views. A 5-Samoan FR5 catheter was inserted into the left ventricle and pressure measurements were obtained. Patient in respiratory distress on BIPAP with signs of cardiogenic shock and extremely elevated LVEDP and therefore decision made to place Impella. Case was discussed with cardiothoracic surgeon and given LAD lesion appearing thrombus and ARIEL 2 flow in LAD, decision made to perform immediate intervention. Right femoral access was obtained with micropuncture access and ultrasound and a 6Fr sheath was placed. A femoral angiogram showed adequate anatomy for Impella. 2 Percloses were placed at the 10 and 2 oclock position. A 14 Fr sheath was miller анна over a stiff wire. A pigtail was placed in the LV and was exchanged for an Impella CP. Care was taken when crossing his abdominal aortic aneurysm which was visible outline on Xray. The Impella was turned on with good flow of approximately 3.5 L/min. Heparin was given for ACT > 250. A 6Fr CLS 4.0 guide catheter was used to engage the left main. A 0.014 BMW wire was advanced into the LAD and a second wire in the circumflex. Predilation was performed with a 2.5 x 12mm balloon. Given thrombus, Penumbra aspiration thrombectomy was performed in the LAD. IVUS showed distal reference vessel 3.0 mm with thrombus and calcification. A 3.0 x 38mm Xience LEONARD was placed from the left main into the LAD. Balloon angioplasty was performed of the left main and proximal LAD with a 4.0 mm NC balloon. There was some "pinching" of the circumflex and therefore the circumflex was rewired and balloon angioplasty was performed with a 1.5 then 2.5 NC balloon. Repeat balloon was performed of the left main. Repeat IVUS showed well expanded stent and no dissection. Final angiograms were performed. Preintervention there was 99% proximal LAD stenosis with ARIEL 2 flow and post intervention there was <10% stenosis with ARIEL 3 flow. Given cardiogenic shock, decision was made to perform PCI of the RCA. A 6Fr AR 2 guide was used to engage the RCA. A 0.014 whisper wire was placed in the dis jose r RCA. Predilation was performed with a 3.0 mm balloon. Next IVUS of RCA showed diffuse calcification with reference vessel 4.5mm. Therefore 4.0 shockwave lithotripsy was performed. Next balloon angioplasty was performed with 4.5NC balloon. There was some dissection and therefore IVUS showed normal area and stenting was recommended. A 4.0 x 33mm Xience LEONARD was placed in the mid RCA and then a 4.0 x 38mm XIence LEONARD was placed in the ostial RCA. Post dilation was performed with a 5.0 NC balloon. Repeat IVUS showed well expanded stent. Final angiograms were performed. Pre intervention there was ARIEL 3 flow and 99% stenosis and post intervention there was < 10% stenosis and ARIEL 3 flow. The right radial sheath was removed and a TR band was placed with hemostasis achieved. The right femoral angiogram showed some antegrade flow and therefore left in place. The patient tolerated the procedure well. Patient was transported to the ICU on Impella. Conscious Sedation: Patient was monitored under the direct supervision of vickelf for conscious sedation using Versed and fentanyl for a total duration of 140 minutes HEMODYNAMICS: Aorta: 100/90 LV: 127/24, LVEDP 59 SELECTIVE CORONARY ARTERIOGRAPHY: LEFT MAIN: The left main is a large caliber vessel which biifurcates into the LAD and circumflex. There is diffuse 30% left main stenosis. LEFT ANTERIOR DESCENDING CORONARY ARTERY: LAD is a large caliber vessel which wraps around to the apex. There is proximal LAD 99% stenosis and mid LAD 90% stenosis with what appears to be thrombus in the proximal LAD with ARIEL 2 flow. There is a moderate caliber diagonal branch with mild luminal irregularities LEFT CIRCUMFLEX CORONARY ARTERY: Left circumflex is a moderate caliber vessel with 20-30% stenosis RIGHT CORONARY ARTERY: The right coronary artery is a large caliber vessel which gives off a PDA and PLV branch and is the dominant vessel. There is heavily calcified proximal RCA 99% stenosis with diffuse 50-60% stenosis of the proximal to mid RCA. FINAL IMPRESSION: 1. Multivessel CAD as described above with 30% left main, 99% proximal LAD, 99% proximal RCA stenosis 2. S/p PCI left main into LAD with a 3.0 x 38mm Xience LEONARD, post dilated with a 4.0 NC, balloon angioplasty of circumflex with a 2.5 balloon, IVUS LAD, PCI RCA with overlapping 4.0 x 33mm distally, 4.0 x 38mm Xience LEONARD proximally, post dilated with a 5.0 mm NC balloon 3. Cardiogenic shock, s/p Impella CP placement PLAN: 1. Aggressive risk factor modification per most recent ACC/AHA guidelines. 2. Continue dual antiplatelets with aspirin and Brillinta for 12 months 3. Wean Impella as able 4. Tobacco cessation was discussed and recommended
--- NOTE | 2023-05-22 08:41 | XR ---
EXAMINATION TYPE: XR chest 1V portable DATE OF EXAM: 05/22/2023 6:14 AM CLINICAL INDICATION:Male, 57 years old with history of LVAD placement. Perform with HOB at 0 degrees. ; COMPARISON: Chest radiographs from 05/21/2023 TECHNIQUE: XR chest 1V portable Frontal view of the chest. FINDINGS: Lungs/Pleura: Resolution of basilar airspace opacities. There is no evidence of pleural effusion, foc al consolidation, or pneumothorax. Pulmonary vascularity: Unremarkable. Heart/mediastinum: Cardiomediastinal silhouette is unremarkable. Musculoskeletal: No acute osseous pathology. Other findings: None Lines/Tubes:Left ventricular assist device projects over the expected location the aortic valve and a scending thoracic aorta.. IMPRESSION: Left ventricular assist device projects over the expected location of the aortic valve/ascending thor acic aorta.
[2023-05-22] MEDS: ASPIRIN 81 MG PO SCH (08:47)
[2023-05-22] MEDS: FUROSEMIDE 10 MG/ML 4 ML VIAL IV SCH (08:47)
--- NOTE | 2023-05-22 10:36 | CA ---
Transthoracic Echo Report Name: Monica Franco Age: 57 Gender: M : 1965 Exam Date: 05/21/2023 14:25 Exam Location: [facility] Ht (in): 71 Wt (lb): 190 Ordering Physician: Miguel Urbano DO ([email or web address]) Attending/Referring Phys: [place] Man Tere Mackey RDCS Procedure CPT: Indications: Placement of Left Ventricular Assist Device Cardiac Hx: Technical Quality: Fair Contrast 1: Total Dose (mL): Contrast 2: Total Dose (mL): MEASUREMENTS (Male / Female) Normal Values FINDINGS Left Ventricle Limited study S/P LVAD placement. Device in place. Right Ventricle Right Atrium Left Atrium Mitral Valve Aortic Valve Tricuspid Valve Pulmonic Valve Pericardium No pericardial effusion. Aorta CONCLUSIONS Limited study S/P Impella placement. Device in place. Device tip measured at 4.2 cm from the aortic valve LVEF 10% to 15%, globally reduced Anterior, anterolateral, anteroseptal wall hypokinesia No pericardial effusion. Previewed by: Dr Jt Cortez (Electronically Signed) Final Date: 22 May 2023 10:35
--- NOTE | 2023-05-22 11:17 | P.CNPUL ---
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 Yesterday at approximately 3 AM he woke up suddenly with severe shortness of breath EMS was called and he was found to be in significant distress pale and lethargic and he was placed on positive airway ventilation with improvement. He was found to have a non-ST segment acute myocardial infarction and acute exacerbation of suspected systolic congestive heart failure. He had undergone urgent cardiac catheterization and had undergone penumbra aspiration thrombectomy of the LAD, PCI of the left main into the LAD with a stent miller cement, balloon angioplasty of the circumflex and stenting of the RCA. He also had an Impella placed. Usually in the intensive care unit he required BiPAP support 12/6 and 60% FiO2. Initial echocardiogram revealed a left ventricular ejection fraction of 10 to 15%. Postprocedure limited echocardiogram continued to show significant global hypokinesia with an ejection fraction of 10 to 15%. He is seen today in consultation in the ICU. He is currently sitting up in bed. Awake and alert in no acute distress. He is maintaining good O2 saturations in the 90s on 2 L/min per nasal cannula. He has a heparin drip running. He has normal saline at 50 MLS per hour. Impella remains in place at a P4 currently. X-ray reveals evidence of the left ventricular assistant secretary device. No pleural effusion. No focal consolidation. No pneumothorax. Resolution of the basilar opacities. White count 20.4. Hemoglobin 14.1. Platelets 194. 5 3 Plascencia 515. Sodium 136. Potassium 4.2. Bicarb 19. BUN 40. Creatinine 1.09. Glucose 131. LDH 1860. Initial troponin 1.97. Peak troponin 146. Total cholesterol 269. LDL 163. proBNP 4450. Review of Systems REVIEW OF SYSTEMS: CONSTITUTIONAL: Denies any recent significant weight loss or weight gain. EYES: Denies change in vision. EARS, NOSE, MOUTH, THROAT: Denies headaches, denies sore throat. CARDIOVASCULAR: Denies chest pain, palpitations or syncopal episodes. RESPIRATORY: Positive for significant shortness of breath, no cough, congestion or hemoptysis. GASTROINTESTINAL: Denies change in appetite, denies abdominal pain GENITOURINARY: Denies hematuria, denies infections. MUSKULOSKELETAL: Denies pain, denies swelling. INTEGUMENTARY: Denies rash, denies eczema. NEUROLOGICAL: Denies recent memory loss, no recent seizure activity. PSYCHIATRIC: Denies anxiety, denies depression. HEMATOLOGIC/LYMPHATIC: Denies anemia, denies enlarged lymph nodes. Past Medical History Past Medical History: Coronary Artery Disease (CAD), COPD Additional Past Medical History / Comment(s): AAA 5.1, left subclavian steel syndrome History of Any Multi-Drug Resistant Organisms: None Reported Past Surgical History: Hernia Repair, Orthopedic Surgery Smoking Status: Current every day smoker Medications and Allergies Home Medications Medication Instructions Recorded Confirmed Type Adhs 2 tab PO BID 05/21/23 05/21/23 History Aspirin EC [Ecotrin Low Dose] 81 mg PO DAILY 05/21/23 05/21/23 History Bio-3b-G 3 tab PO DAILY 05/21/23 05/21/23 History Bio-C-Plus 1 - 3 tab PO DAILY 05/21/23 05/21/23 History De-Stress 1 tab PO DAILY 05/21/23 05/21/23 History Purified Chondroitin Sulfates 1 - 3 tab PO DAILY 05/21/23 05/21/23 History Super Beets Chew 2 tab PO DAILY 05/21/23 05/21/23 History Allergies Allergy/AdvReac Type Severity Reaction Status Date / Time [id number] Reductase AdvReac Unknown Verified 05/21/23 09:30 Inhibitor Physical Exam Vitals: Vital Signs Temp Pulse Resp BP Pulse Ox FiO2 05/22/23 10:00 96 15 86/65 93 L 05/22/23 09:30 103 H 17 92/76 93 L 05/22/23 09:00 93 19 83/62 92 L 05/22/23 08:45 96 18 83/62 89 L 05/22/23 08:30 98.3 F 96 17 83/62 93 L 05/22/23 08:15 101 H 11 L 88/63 92 L 05/22/23 08:00 19 84/64 94 L 05/22/23 07:45 94 22 77/59 93 L 24 07:30 90 21 79/63 92 L 02/24 07:15 94 48 H 82/68 92 L 02/06/13 07:00 97 21 83/68 91 L 02/24 06:45 94 19 77/65 92 L /24 06:30 92 13 85/67 91 L /24 06:15 96 22 84/69 91 L /06/13 06:00 94 20 86/67 92 L /06/13 05:45 92 19 81/64 02/0224 05:30 93 19 91 L /06/13 05:15 95 21 92 L /24 05:00 95 21 80/68 90 L /24 04:45 93 94/71 93 L /06/13 04:30 96 20 81/67 92 L /24 04:15 96 22 89/75 88 L 02/24 04:00 98.4 F 83 21 85/60 92 L /06/13 03:45 98 22 89/66 89 L 02/24 03:30 89 19 90/63 02/24 03:15 85 22 88/70 92 L 02/24 03:00 93 18 86/68 89 L /24 02:45 96 20 91/67 94 L 02/24 02:30 92 17 88/68 93 L 02/24 02:15 96 12 89/70 97 02/24 02:00 95 19 95/69 95 /24 01:45 103 H 20 91/68 92 L 02/24 01:30 104 H 86/67 95 02/0224 01:15 87 15 94 L 02/24 01:00 96 12 85/69 92 L 02/02/24 00:45 97 21 89/62 91 L 02/0224 00:30 100 13 91/65 93 L 02/24 00:15 77 19 86/68 93 L 02/0224 00:00 98.5 F 98 22 94/71 91 L 02/24 23:45 101 H 22 85/71 94 L 02/0124 23:30 98 21 87/69 94 L 02/24 23:15 95 18 87/73 94 L 05/21/23 23:00 99 20 97/76 94 L 05/21/23 22:45 93 19 91/70 95 05/21/23 22:30 95 16 97/74 94 L 05/21/23 22:15 101 H 13 88/75 95 05/21/23 22:00 100 12 88/72 93 L 05/21/23 21:45 97 16 97/62 93 L 05/21/23 21:30 92 12 90/70 94 L 05/21/23 21:15 103 H 14 86/71 92 L 05/21/23 21:00 101 H 17 104/79 91 L 05/21/23 20:45 105 H 15 90/72 93 L 05/21/23 20:30 104 H 20 101/76 92 L 05/21/23 20:19 93 L 05/21/23 20:15 103 H 24 107/77 93 L 05/21/23 20:00 97.7 F 70 16 99/83 93 L 05/21/23 19:00 98 19 95/71 97 05/21/23 18:45 100 20 98/72 97 05/21/23 18:30 99 22 100/77 96 05/21/23 18:15 104 H 13 96/76 98 05/21/23 18:00 104 H 21 94/71 97 05/21/23 17:45 101 H 22 99/77 98 05/21/23 17:30 102 H 21 98/82 99 05/21/23 17:15 103 H 24 103/74 97 05/21/23 17:00 102 H 25 H 109/77 99 50 05/21/23 16:48 97.9 F 05/21/23 16:45 105 H 22 100/81 97 05/21/23 16:30 97 22 101/80 99 05/21/23 16:15 104 H 18 99/74 99 02 16:00 104 H 22 100/74 98 05/21/23 15:45 101 H 25 H 98 05/21/23 15:42 50 05/21/23 15:30 100 24 113/80 99 05/21/23 15:15 100 24 111/84 99 05/21/23 15:00 108 H 32 H 114/87 96 05/21/23 14:45 105 H 26 H 128/90 97 05/21/23 14:30 112 H 25 H 119/79 97 05/21/23 14:15 97.9 F 106 H 25 H 106/70 96 70 05/21/23 14:14 70 Intake and Output 05/21/23 05/22/23 05/22/23 22:59 06:59 14:59 Intake Total 381.831 535.097 212 Output Total 6312 249 9050 Balance -1043.169 -314.903 -913 Intake: IV 350 400 212 Sodium Bicarb (1 Meq/ml) 12 12.5 ml In Dextrose 5% in Water 500 ml @ Per Protocol IV DIRECTED SUSHIL Rx#:[id number] Sodium Chloride 0.9% 1, 350 400 200 000 ml @ 50 mls/hr IV . Q20H SUSHIL Rx#:[id number] Intake, IV Titration 31.831 135.097 Amount Heparin Sod,Pork in 0.45% 24.781 91.972 NaCl 25,000 unit In 0.45 % NaCl 1 250ml.bag @ 11.6 UNITS/KG/HR 9.997 mls/hr IV .Q24H SUSHIL Rx#: [id number] Nitroglycerin-D5w Pmx 50 7.05 43.125 mg In Dextrose/Water 1 250ml.bag @ 20 MCG/MIN 6 mls/hr IV .Q24H SUSHIL Rx#: [id number] Output: Urine [id number] Other: Voiding Method Urinal Urinal Urinal # Voids 1 1 1 Weight 86.183 kg 81.6 kg ABP, PAP, CO, CI - Last 8 Hours Arterial Blood Pressure 134/124 Arterial Blood Pressure 107/93 Arterial Blood Pressure 92/76 Arterial Blood Pressure 82/67 Arterial Blood Pressure 80/65 Arterial Blood Pressure 84/56 Arterial Blood Pressure 79/62 GENERAL EXAM: Alert, very pleasant 57-year-old male, on 2 L nasal cannula, fairl y comfortable in no apparent distress. HEAD: Normocephalic. EYES: Normal reaction of pupils, equal size. NOSE: Clear with pink turbinates. THROAT: No erythema or exudates. NECK: No masses, no JVD. CHEST: No chest wall deformity. LUNGS: Equal air entry with no crackles, wheeze, rhonchi or dullness. CVS: S1 and S2 normal with no audible murmur, regular rhythm. ABDOMEN: No hepatosplenomegaly, normal bowel sounds, no guarding or rigidity. SPINE: No scoliosis or deformity SKIN: No rashes CENTRAL NERVOUS SYSTEM: No focal deficits, tone is normal in all 4 extremities. EXTREMITIES: Right femoral Impella in place. There is no peripheral edema. No clubbing, no cyanosis. Peripheral pulses are intact. Results - Laboratory Findings CBC and BMP: 05/22/23 04:22 05/22/23 04:22 PT/INR, D-dimer PT 10.9 sec (10.0-12.5) 05/21/23 15:49 INR 1.0 (<1.2) 05/21/23 15:49 Abnormal lab findings: Abnormal Labs 05/21/23 05/21/23 05/21/23 07:50 07:50 07:50 WBC 18.2 H Neutrophils # 16.4 H Lymphocytes # Monocytes # APTT Fibrinogen Sodium Chloride Carbon Dioxide 21 L BUN 25 H Creatinine 1.35 H Glucose 232 H POC Glucose (mg/dL) Plasma Lactic Acid Osiel 4.1 H* AST 85 H Lactate Dehydrogenase Troponin I Triglycerides Cholesterol LDL Cholesterol, Calc VLDL Cholesterol, Calc 05/21/23 05/21/23 05/21/23 07:50 07:50 14:09 WBC Neutrophils # Lymphocytes # Monocytes # APTT Fibrinogen Sodium Chloride Carbon Dioxide BUN Creatinine Glucose POC Glucose (mg/dL) 180 H Plasma Lactic Acid Osiel AST Lactate Dehydrogenase Troponin I 1.970 H* Triglycerides 282.00 H Cholesterol 269.00 H LDL Cholesterol, Calc 163.4 H VLDL Cholesterol, Calc 56.40 H 05/21/23 05/21/23 05/21/23 14:30 14:30 15:49 WBC 16.7 H Neutrophils # 15.8 H Lymphocytes # 0.4 L Monocytes # APTT 95.9 H 39.6 H Fibrinogen Sodium Chloride Carbon Dioxide BUN Creatinine Glucose POC Glucose (mg/dL) Plasma Lactic Acid Osiel AST Lactate Dehydrogenase Troponin I Triglycerides Cholesterol LDL Cholesterol, Calc VLDL Cholesterol, Calc 05/21/23 05/21/23 05/21/23 17:45 17:45 19:57 WBC Neutrophils # Lymphocytes # Monocytes # APTT Fibrinogen Sodium Chloride 113 H Carbon Dioxide 17 L BUN 33 H Creatinine Glucose 147 H POC Glucose (mg/dL) Plasma Lactic Acid Osiel AST Lactate Dehydrogenase 1526 H 1768 H Troponin I 146.000 H* Triglycerides Cholesterol LDL Cholesterol, Calc VLDL Cholesterol, Calc 05/21/23 05/22/23 05/22/23 19:57 00:50 00:53 WBC Neutrophils # Lymphocytes # Monocytes # APTT 33.4 H Fibrinogen Sodium 136 L Chloride 110 H Carbon Dioxide 19 L BUN 39 H Creatinine Glucose 137 H POC Glucose (mg/dL) 138 H Plasma Lactic Acid Osiel AST Lactate Dehydrogenase 1999 H Troponin I Triglycerides Cholesterol LDL Cholesterol, Calc VLDL Cholesterol, Calc 05/22/23 05/22/23 05/22/23 00:53 04:22 04:22 WBC 20.4 H Neutrophils # 17.8 H Lymphocytes # Monocytes # 1.1 H APTT 33.1 H Fibrinogen Sodium 136 L Chloride 111 H Carbon Dioxide 19 L BUN 40 H Creatinine Glucose 131 H POC Glucose (mg/dL) Plasma Lactic Acid Osiel AST Lactate Dehydrogenase 1860 H Troponin I Triglycerides Cholesterol LDL Cholesterol, Calc VLDL Cholesterol, Calc 05/22/23 05/22/23 05/22/23 04:22 05:37 08:52 WBC Neutrophils # Lymphocytes # Monocytes # APTT 53.7 H Fibrinogen 515 H Sodium Chloride Carbon Dioxide BUN Creatinine Glucose POC Glucose (mg/dL) 143 H Plasma Lactic Acid Osiel AST Lactate Dehydrogenase Troponin I Triglycerides Cholesterol LDL Cholesterol, Calc VLDL Cholesterol, Calc - Diagnostic Findings Chest x-ray: image reviewed Assessment and Plan Assessment: Acute non-ST segment elevation myocardial infarction status post Impella placement, penumbra aspiration thrombectomy of the LAD, PCI of the left main into LAD stented, PTBA of the circumflex, stenting to the RCA. Postoperative day #1 Cardiogenic requiring Impella placement Severe ischemic cardiomyopathy with global hypokinesia and ejection fraction of 10 to 15% Chronic and ongoing tobacco dependence Chronic obstructive pulmonary disease Hypertension Hyperlipidemia History of peripheral arterial disease History of subclavian artery stenosis/subclavian steal on the left History of abdominal aortic aneurysm measuring 5.5 Plan: The patient was seen and evaluated Chest x-ray, echocardiogram, labs and medications reviewed Currently stable and on 2 L nasal cannula Impella remains in place Continue heparin drip DuoNeb inhalations as needed Continued on Brilinta and aspirin We will continue to follow and make further recommendations based on his clinical status I have personally seen and examined the patient, performed the documentation and the assessment and plan as written. Number of minutes spent on the visit: 20.
[2023-05-22] MEDS: ALPRAZolam 0.25 MG TAB PO PRN (12:17)
--- NOTE | 2023-05-22 14:03 | P.GSCN ---
History of Present Illness Consult date: 05/22/23 Reason for Consult: Abdominal aortic aneurysm, left subclavian occlusion with steal syndrome Requesting physician: Westley Barber History of present illness: This a pleasant 57-year-old male with multiple comorbidities including hypertension, hyperlipidemia, peripheral arterial disease, subclavian artery stenosis with steal syndrome on the left, abdominal aortic aneurysm, coronary artery disease, tobacco abuse who presented to the emergency department yesterday with complaints of shortness of breath. He was admitted for NSTEMI, cardiogenic shock. Today he underwent left heart catheterization with bilateral coronary angiography, Impella CP placement, penumbra aspiration thrombectomy LAD, PCI left main into LAD, balloon angioplasty of the circumflex, IVUS LAD, PCI RCA, with shockwave lithotripsy angioplasty RCA. He has a history of abdominal aortic aneurysm and left subclavian stenosis for which vascular surgery was consulted. Patient is currently admitted to the ICU. He is sitting up awake and alert. He appears in no distress. He follows with vascular surgeon Dr. Ruth out of [facility] in [place]. He states he has been following with him and he has an appointment on May 29 for CTA of the chest abdomen and pelvis with a follow-up appointment with him on June 09. No c omplaints of abdominal pain or back pain. No significant pain in his left upper extremity. Review of Systems A 14 point review systems was completed all pertinent positives and negatives as stated in the HPI. Past Medical History Past Medical History: Coronary Artery Disease (CAD), COPD Additional Past Medical History / Comment(s): AAA 5.1, left subclavian steel syndrome History of Any Multi-Drug Resistant Organisms: None Reported Past Surgical History: Hernia Repair, Orthopedic Surgery Smoking Status: Current every day smoker Medications and Allergies Home Medications Medication Instructions Recorded Confirmed Type Adhs 2 tab PO BID 05/21/23 05/21/23 History Aspirin EC [Ecotrin Low Dose] 81 mg PO DAILY 05/21/23 05/21/23 History Bio-3b-G 3 tab PO DAILY 05/21/23 05/21/23 History Bio-C-Plus 1 - 3 tab PO DAILY 05/21/23 05/21/23 History De-Stress 1 tab PO DAILY 05/21/23 05/21/23 History Purified Chondroitin Sulfates 1 - 3 tab PO DAILY 05/21/23 05/21/23 History Super Beets Chew 2 tab PO DAILY 05/21/23 05/21/23 History Allergies Allergy/AdvReac Type Severity Reaction Status Date / Time [id number] Reductase AdvReac Unknown Verified 05/21/23 09:30 Inhibitor Surgical - Exam Vital Signs Pulse Resp BP 122 H 32 H 118/101 05/21/23 07:34 05/21/23 07:34 05/21/23 07:34 - General General appearance: The patient is alert, oriented, appears in no acute distress. HET: Head is normocephalic and atraumatic. Pupils are equal and reactive. Neck: Supple. Heart: Regular. Lungs: Equal expansion, normal respiratory effort. Abdomen: Soft, nondistended. Extremities: Normal skin color and turgor. Neurological: No focal deficits. Results - Labs 05/22/23 04:22 05/22/23 04:22 Abnormal Lab Results - Last 24 Hours (Table) 05/21/23 05/21/23 05/21/23 Range/Units 07:50 14:09 14:30 WBC 16.7 H (3.8-10.6) k/uL Neutrophils # 15.8 H (1.3-7.7) k/uL Lymphocytes # 0.4 L (1.0-4.8) k/uL Monocytes # (0-1.0) k/uL APTT (22.0-30.0) sec Fibrinogen (200-500) mg/dL Sodium (137-145) mmol/L Chloride (98-107) mmol/L Carbon Dioxide (22-30) mmol/L BUN (9-20) mg/dL Glucose (74-99) mg/dL POC Glucose (mg/dL) 180 H (70-110) mg/dL Lactate Dehydrogenase (120-246) U/L Troponin I (0.000-0.034) ng/mL Triglycerides 282.00 H (0.00-149.00) mg/dL Cholesterol 269.00 H (0.00-200.00) mg/dL LDL Cholesterol, Calc 163.4 H (0.0-131.0) mg/dL VLDL Cholesterol, Calc 56.40 H (5.00-40.00) mg/dL 05/21/23 05/21/23 05/21/23 Range/Units 14:30 15:49 17:45 WBC (3.8-10.6) k/uL Neutrophils # (1.3-7.7) k/uL Lymphocytes # (1.0-4.8) k/uL Monocytes # (0-1.0) k/uL APTT 95.9 H 39.6 H (22.0-30.0) sec Fibrinogen (200-500) mg/dL Sodium (137-145) mmol/L Chloride 113 H (98-107) mmol/L Carbon Dioxide 17 L (22-30) mmol/L BUN 33 H (9-20) mg/dL Glucose 147 H (74-99) mg/dL POC Glucose (mg/dL) (70-110) mg/dL Lactate Dehydrogenase 1526 H (120-246) U/L Troponin I (0.000-0.034) ng/mL Triglycerides (0.00-149.00) mg/dL Cholesterol (0.00-200.00) mg/dL LDL Cholesterol, Calc (0.0-131.0) mg/dL VLDL Cholesterol, Calc (5.00-40.00) mg/dL 05/21/23 05/21/23 05/21/23 Range/Units 17:45 19:57 19:57 WBC (3.8-10.6) k/uL Neutrophils # (1.3-7.7) k/uL Lymphocytes # (1.0-4.8) k/uL Monocytes # (0-1.0) k/uL APTT 33.4 H (22.0-30.0) sec Fibrinogen (200-500) mg/dL Sodium (137-145) mmol/L Chloride (98-107) mmol/L Carbon Dioxide (22-30) mmol/L BUN (9-20) mg/dL Glucose (74-99) mg/dL POC Glucose (mg/dL) (70-110) mg/dL Lactate Dehydrogenase 1768 H (120-246) U/L Troponin I 146.000 H* (0.000-0.034) ng/mL Triglycerides (0.00-149.00) mg/dL Cholesterol (0.00-200.00) mg/dL LDL Cholesterol, Calc (0.0-131.0) mg/dL VLDL Cholesterol, Calc (5.00-40.00) mg/dL 05/22/23 05/22/2305/22/24 Range/Units 00:50 00:53 00:53 WBC (3.8-10.6) k/uL Neutrophils # (1.3-7.7) k/uL Lymphocytes # (1.0-4.8) k/uL Monocytes # (0-1.0) k/uL APTT 33.1 H (22.0-30.0) sec Fibrinogen (200-500) mg/dL Sodium 136 L (137-145) mmol/L Chloride 110 H (98-107) mmol/L Carbon Dioxide 19 L (22-30) mmol/L BUN 39 H (9-20) mg/dL Glucose 137 H (74-99) mg/dL POC Glucose (mg/dL) 138 H (70-110) mg/dL Lactate Dehydrogenase 1999 H (120-246) U/L Troponin I (0.000-0.034) ng/mL Triglycerides (0.00-149.00) mg/dL Cholesterol (0.00-200.00) mg/dL LDL Cholesterol, Calc (0.0-131.0) mg/dL VLDL Cholesterol, Calc (5.00-40.00) mg/dL 05/22/23 05/22/23 05/22/23 Range/Units 04:22 04:22 04:22 WBC 20.4 H (3.8-10.6) k/uL Neutrophils # 17.8 H (1.3-7.7) k/uL Lymphocytes # (1.0-4.8) k/uL Monocytes # 1.1 H (0-1.0) k/uL APTT (22.0-30.0) sec Fibrinogen 515 H (200-500) mg/dL Sodium 136 L (137-145) mmol/L Chloride 111 H (98-107) mmol/L Carbon Dioxide 19 L (22-30) mmol/L BUN 40 H (9-20) mg/dL Glucose 131 H (74-99) mg/dL POC Glucose (mg/dL) (70-110) mg/dL Lactate Dehydrogenase 1860 H (120-246) U/L Troponin I (0.000-0.034) ng/mL Triglycerides (0.00-149.00) mg/dL Cholesterol (0.00-200.00) mg/dL LDL Cholesterol, Calc (0.0-131.0) mg/dL VLDL Cholesterol, Calc (5.00-40.00) mg/dL 05/22/23 05/22/23 Range/Units 05:37 08:52 WBC (3.8-10.6) k/uL Neutrophils # (1.3-7.7) k/uL Lymphocytes # (1.0-4.8) k/uL Monocytes # (0-1.0) k/uL APTT 53.7 H (22.0-30.0) sec Fibrinogen (200-500) mg/dL Sodium (137-145) mmol/L Chloride (98-107) mmol/L Carbon Dioxide (22-30) mmol/L BUN (9-20) mg/dL Glucose (74-99) mg/dL POC Glucose (mg/dL) 143 H (70-110) mg/dL Lactate Dehydrogenase (120-246) U/L Troponin I (0.000-0.034) ng/mL Triglycerides (0.00-149.00) mg/dL Cholesterol (0.00-200.00) mg/dL LDL Cholesterol, Calc (0.0-131.0) mg/dL VLDL Cholesterol, Calc (5.00-40.00) mg/dL Microbiology - Last 24 Hours (Table) 05/21/23 07:50 Blood Culture - Preliminary Blood Diabetes panel 05/21/23 05/21/23 05/22/23 Range/Units 07:50 17:45 00:53 Sodium 137 136 L (137-145) mmol/L Potassium 4.6 4.3 (3.5-5.1) mmol/L Chloride 113 H 110 H (98-107) mmol/L Carbon Dioxide 17 L 19 L (22-30) mmol/L BUN 33 H 39 H (9-20) mg/dL Creatinine 1.14 1.13 (0.66-1.25) mg/dL Glucose 147 H 137 H (74-99) mg/dL Calcium 9.0 9.1 (8.4-10.2) mg/dL Triglycerides 282.00 H (0.00-149.00) mg/dL HDL Cholesterol 49.20 (40.00-60.00) mg/dL 05/22/23 Range/Units 04:22 Sodium 136 L (137-145) mmol/L Potassium 4.2 (3.5-5.1) mmol/L Chloride 111 H (98-107) mmol/L Carbon Dioxide 19 L (22-30) mmol/L BUN 40 H (9-20) mg/dL Creatinine 1.05 (0.66-1.25) mg/dL Glucose 131 H (74-99) mg/dL Calcium 9.0 (8.4-10.2) mg/dL Triglycerides (0.00-149.00) mg/dL HDL Cholesterol (40.00-60.00) mg/dL Calcium panel 05/21/23 05/22/23 05/22/23 Range/Units 17:45 00:53 04:22 Calcium 9.0 9.1 9.0 (8.4-10.2) mg/dL Pituitary panel 05/21/23 05/22/23 05/22/23 Range/Units 17:45 00:53 04:22 Sodium 137 136 L 136 L (137-145) mmol/L Potassium 4.6 4.3 4.2 (3.5-5.1) mmol/L Chloride 113 H 110 H 111 H (98-107) mmol/L Carbon Dioxide 17 L 19 L 19 L (22-30) mmol/L BUN 33 H 39 H 40 H (9-20) mg/dL Creatinine 1.14 1.13 1.05 (0.66-1.25) mg/dL Glucose 147 H 137 H 131 H (74-99) mg/dL Calcium 9.0 9.1 9.0 (8.4-10.2) mg/dL Adrenal panel 05/21/23 05/22/23 05/22/23 Range/Units 17:45 00:53 04:22 Sodium 137 136 L 136 L (137-145) mmol/L Potassium 4.6 4.3 4.2 (3.5-5.1) mmol/L Chloride 113 H 110 H 111 H (98-107) mmol/L Carbon Dioxide 17 L 19 L 19 L (22-30) mmol/L BUN 33 H 39 H 40 H (9-20) mg/dL Creatinine 1.14 1.13 1.05 (0.66-1.25) mg/dL Glucose 147 H 137 H 131 H (74-99) mg/dL Calcium 9.0 9.1 9.0 (8.4-10.2) mg/dL Assessment and Plan Assessment: 1. Known left subclavian stenosis 2. Known abdominal aortic aneurysm 3. NSTEMI, multivessel coronary artery disease with 30% left main, 99% proximal LAD, 99% proximal RCA stenosis 4. Cardiogenic shock status post Impella CP placement 5. Tobacco dependence 6. Hypertension Plan: This is a 57-year-old male with known left subclavian stenosis and steal syndrome as well as abdominal aortic aneurysm who follows with vascular surgeon Dr. Ruth at [facility]. Patient has been compliant with his follow- ups and he has an upcoming appointment May for CT angiogram of the chest abdomen pelvis with follow-up on June 09. Patient would like to continue as planned to follow with his vascular surgeon. There is no indication for any emergent or urgent vascular surgery call intervention. Continue with medical management and cardiology management. Discussed with nurse to take blood pressures of bilateral upper extremities. Thank you for this consultation, we will sign off at this time. The impression and plan of care has been dictated as directed. Dr. Yeung I performed a history and examination of this patient, discussed the same with the dictator. I agree with the dictator's note ,documented as a scribe. Any a dditional findings or plans will be noted.
[2023-05-22 16:40] LABS: Glucose,Whole Blood 117 mg/dL (70-110)
[2023-05-22] MEDS ORDERED: SALINE 1 500ML.BAG with HEPARIN SODIUM,PORCINE/NS/PF 1,000 UNIT INTRAARTER PRN (17:16)
--- NOTE | 2023-05-22 18:31 | P.PN ---
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 He does admit to some episodes of chest pain and heaviness usually if his heart rate increases or if his blood pressure goes up over last few months. He [place] a game [place] and apparently no recent workup however and has not had an echo or stress test. With his PhD he was seeing a vascular surgeon without any recommendations for any intervention and additionally has a abdominal aortic aneurysm measuring approximately 5.1 cm. He is still smoking however down to approximately 1 cigarette per day. Has family history of mother with bypass in her 50s. 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 He admits that initially he felt a jittery sensation which normally happens when he has high blood pressure however developed more shortness of breath and not really any chest pain or pressure. He had mild tightness however currently states he does not have any actual chest tightness. He does have a history of left bundle-branch block however EKG does have sinus tachycardia with left bundle branch block with worsened ST elevation for V2 through V4 with borderline elevation in V5. White blood cell count 18, creatinine 1.3, lactic acid 4.1, AST 85, ALT 40, troponin 1.9, proBNP 4450. Chest x-ray shows diffuse pulmonary edema. He is currently on BiPAP however much more comfortable. He does admit to chronic mild kidney issues with creatinine stable 1.3. 2/2 Patient seen and examined. Patient was initially possibly trying to be transferred to [facility]. Patient underwent a heart catheterization yesterday which showed LAD 99% stenosis with thrombus as well as 99% RCA stenosis and the extremely elevated LVEDP 59. Patient therefore underwent left ventricular assist device placement from a right femoral approach and PCI of left main and LAD with balloon angioplasty of circumflex as well as PCI of RCA with shock wave lithotripsy. He currently has been weaned from BiPAP. He previously was having some chest tightness which appeared more related to heart failure which had been improved with nitro however nitro was able to be weaned off. The Impella was weaned down to the 5 however if going much lower than this to the P4 or P3, patient's low pressure dropping to the 70s over 60s. Creatinine has remained stable at 1.0. PHYSICAL EXAMINATION Vital signs reviewed. CONSTITUTIONAL: No apparent distress, lying in reverse Trendelenburg HEENT: Head is normocephalic. Pupils are equal, round. Sclerae anicteric. Mucous membranes of the mouth are moist. No JVD. No carotid bruit. CHEST EXAMINATION: No crackles. No chest wall tenderness is noted on palpation or with deep breathing. HEART EXAMINATION: Regular rate and rhythm. S1, S2 heard. No murmurs, gallops or rub. ABDOMEN: Soft, nontender. Positive bowel sounds. EXTREMITIES: 2+ peripheral pulses, no lower extremity edema and no calf tenderness. NEUROLOGIC EXAMINATION: Patient is awake, alert and oriented x3. ASSESSMENT 1. Non-STEMI 2. Acute on chronic systolic heart failure 3. Cardiogenic shock 4. CAD status post PCI left main into LAD and RCA 2/ 5. PAD 6. Left subclavian steal 7. Left bundle branch block 8. History of abdominal aortic aneurysm 5.1 9. Tobacco abuse 10. Family history of CAD 11. Chronic kidney disease, per patient stable at 1.3 PLAN Patient unfortunately suffered CO with severe ischemic cardiomyopathy EF 10-15% and required left ventricular assist device with Impella and stenting of his left main to LAD and RCA. Continued dual antiplatelets. Unable to tolerate any heart failure regimen secondary to hypotension. Hopefully be able to wean left ventricular assist device tomorrow and remove however monitor urine output, creatinine and respiratory status closely. Prognosis guarded. Objective - Vital Signs Vital signs: Vital Signs Temp 98.6 F 05/22/23 16:00 Pulse 96 05/22/23 18:15 Resp 19 05/22/23 18:15 BP 77/63 05/22/23 18:15 Pulse Ox 93 L 05/22/23 18:15 FiO2 50 05/21/23 17:00 Intake & Output 05/21/23 05/22/23 05/22/23 18:59 06:59 18:59 Intake Total 487.381 149.692 5897.07 Output Total 600 1975 1675 Balance -112.619 -1236.453 -225.93 Weight 86.183 kg 81.6 kg Intake: IV 459 600 681 Pressure Bag (0.9 Sodium 33 Chloride) Sodium Bicarb (1 Meq/ml) 48 12.5 ml In Dextrose 5% in Water 500 ml @ Per Protocol IV DIRECTED [facility] Rx#:[id number] Sodium Chloride 0.9% 1, 200 600 600 000 ml @ 50 mls/hr IV . Q20H [facility] Rx#:[id number] Intake, IV Titration 28.381 138.547 118.07 Amount Heparin Sod,Pork in 0.45% 24.781 91.972 118.07 NaCl 25,000 unit In 0.45 % NaCl 1 250ml.bag @ 11.6 UNITS/KG/HR 9.997 mls/hr IV .Q24H [facility] Rx#: [id number] Nitroglycerin-D5w Pmx 50 3.6 46.575 mg In Dextrose/Water 1 250ml.bag @ 20 MCG/MIN 6 mls/hr IV .Q24H [facility] Rx#: [id number] Oral 650 Output: Urine 600 1975 1675 Other: Voiding Method Urinal Urinal Urinal # Voids 1 1 ABP, PAP, CO, CI - Last Documented Arterial Blood Pressure 68/47 - Labs CBC & Chem 7: 05/22/23 04:22 05/22/23 04:22 Labs: Abnormal Lab Results - Last 24 Hours (Table) 05/21/23 05/21/23 05/21/23 Range/Units 17:45 17:45 19:57 WBC (3.8-10.6) k/uL Neutrophils # (1.3-7.7) k/uL Monocytes # (0-1.0) k/uL APTT (22.0-30.0) sec Fibrinogen (200-500) mg/dL Sodium (137-145) mmol/L Chloride 113 H (98-107) mmol/L Carbon Dioxide 17 L (22-30) mmol/L BUN 33 H (9-20) mg/dL Glucose 147 H (74-99) mg/dL POC Glucose (mg/dL) (70-110) mg/dL Lactate Dehydrogenase 1526 H 1768 H (120-246) U/L Troponin I 146.000 H* (0.000-0.034) ng/mL 05/21/23 05/22/23 05/22/23 Range/Units 19:57 00:50 00:53 WBC (3.8-10.6) k/uL Neutrophils # (1.3-7.7) k/uL Monocytes # (0-1.0) k/uL APTT 33.4 H (22.0-30.0) sec Fibrinogen (200-500) mg/dL Sodium 136 L (137-145) mmol/L Chloride 110 H (98-107) mmol/L Carbon Dioxide 19 L (22-30) mmol/L BUN 39 H (9-20) mg/dL Glucose 137 H (74-99) mg/dL POC Glucose (mg/dL) 138 H (70-110) mg/dL Lactate Dehydrogenase 1999 H (120-246) U/L Troponin I (0.000-0.034) ng/mL 05/22/23 05/22/23 05/22/23 Range/Units 00:53 04:22 04:22 WBC 20.4 H (3.8-10.6) k/uL Neutrophils # 17.8 H (1.3-7.7) k/uL Monocytes # 1.1 H (0-1.0) k/uL APTT 33.1 H (22.0-30.0) sec Fibrinogen (200-500) mg/dL Sodium 136 L (137-145) mmol/L Chloride 111 H (98-107) mmol/L Carbon Dioxide 19 L (22-30) mmol/L BUN 40 H (9-20) mg/dL Glucose 131 H (74-99) mg/dL POC Glucose (mg/dL) (70-110) mg/dL Lactate Dehydrogenase 1860 H (120-246) U/L Troponin I (0.000-0.034) ng/mL 05/22/23 05/22/23 05/22/23 Range/Units 04:22 05:37 08:52 WBC (3.8-10.6) k/uL Neutrophils # (1.3-7.7) k/uL Monocytes # (0-1.0) k/uL APTT 53.7 H (22.0-30.0) sec Fibrinogen 515 H (200-500) mg/dL Sodium (137-145) mmol/L Chloride (98-107) mmol/L Carbon Dioxide (22-30) mmol/L BUN (9-20) mg/dL Glucose (74-99) mg/dL POC Glucose (mg/dL) 143 H (70-110) mg/dL Lactate Dehydrogenase (120-246) U/L Troponin I (0.000-0.034) ng/mL 05/22/23 05/22/23 Range/Units 11:31 16:38 WBC (3.8-10.6) k/uL Neutrophils # (1.3-7.7) k/uL Monocytes # (0-1.0) k/uL APTT (22.0-30.0) sec Fibrinogen (200-500) mg/dL Sodium (137-145) mmol/L Chloride (98-107) mmol/L Carbon Dioxide (22-30) mmol/L BUN (9-20) mg/dL Glucose (74-99) mg/dL POC Glucose (mg/dL) 117 H (70-110) mg/dL Lactate Dehydrogenase 1772 H (120-246) U/L Troponin I (0.000-0.034) ng/mL Microbiology - Last 24 Hours (Table) 05/21/23 07:50 Blood Culture - Preliminary Blood
--- NOTE | 2023-05-22 20:28 | PN ---
PROGRESS NOTE CHIEF COMPLAINT: Acute STEMI with congestive heart failure and pulmonary edema. HISTORY OF PRESENT ILLNESS: This gentleman is fairly stable. Impella is still in place. He is not experiencing any significant chest pain or shortness of breath. PHYSICAL EXAMINATION: VITAL SIGNS: Blood pressure is 77/48. He is in sinus rhythm. GENERAL: Color is good. CHEST: Breath sounds are heard bilaterally. CARDIAC: Normal. ABDOMEN: Soft, nontender. IMPRESSION: 1. Acute ST elevation myocardial infarction. 2. Acute congestive heart failure and cardiac shock. 3. Abdominal aortic aneurysm. 4. Left-sided subclavian steal. 5. Chronic obstructive pulmonary disease. PLAN: Continue to follow with Cardiology and Pulmonology. MMODL / IJN: [id number] /
[2023-05-22 20:50] LABS: HCT 35.8 % (39.0-53.0); HGB 12.3 gm/dL (13.0-17.5); MCH 32.5 pg (25.0-35.0); MCHC 34.3 g/dL (31.0-37.0); MCV 94.8 fL (80.0-100.0); Mean Platelet Volume 8.6; Platelet Count 144 k/uL (150-450); RBC 3.78 m/uL (4.30-5.90); RDW 13.1 % (11.5-15.5); WBC 12.9 k/uL (3.8-10.6)
[2023-05-22 23:59] LABS: Glucose,Whole Blood 102 mg/dL (70-110)
[2023-05-23] MEDS: SODIUM CHLORIDE 0.9% 500 ML 500 ML IV ONE (01:12)
[2023-05-23] MEDS: NOREPINEPHRINE 4 MG in SODIUM CHLORIDE 0.9% 250 ML IV SCH (02:48)
[2023-05-23 05:03] LABS: Basophils % (A) 0 %; Eosinophils # (A) 0.1 k/uL (0-0.7); Eosinophils % (A) 1 %; HCT 34.2 % (39.0-53.0); HGB 11.5 gm/dL (13.0-17.5); Lymphocytes # (A) 1.9 k/uL (1.0-4.8); Lymphocytes % (A) 17 %; MCH 31.6 pg (25.0-35.0); MCHC 33.5 g/dL (31.0-37.0); MCV 94.1 fL (80.0-100.0); Monocytes # (A) 0.7 k/uL (0-1.0); Monocytes % (A) 6 %; Neutrophils # (A) 8.6 k/uL (1.3-7.7); Neutrophils % (A) 74 %; Partial Thromboplastin Time 48.8 sec (22.0-30.0); Platelet Count 133 k/uL (150-450); RBC 3.63 m/uL (4.30-5.90); RDW 13.5 % (11.5-15.5); WBC 11.6 k/uL (3.8-10.6)
[2023-05-23 05:07] LABS: African American GFR (CKD) >90 (>60 ml/min/1.73 sqM); Anion Gap 2 mmol/L; Blood Urea Nitrogen 35 mg/dL (9-20); Calcium 8.1 mg/dL (8.4-10.2); Carbon Dioxide 23 mmol/L (22-30); Chloride 110 mmol/L (98-107); Glucose 101 mg/dL (74-99); Non-African American GFR(CKD) 90 (>60 ml/min/1.73 sqM); Sodium 135 mmol/L (137-145)
--- NOTE | 2023-05-23 07:14 | P.PN ---
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 He does admit to some episodes of chest pain and heaviness usually if his heart rate increases or if his blood pressure goes up over last few months. He has been seeing a quality control tech raw materials [place] and apparently no recent workup however and has not had an echo or stress test. With his PhD he was seeing a vascular surgeon without any recommendations for any intervention and additionally has a abdominal aortic aneurysm measuring approximately 5.1 cm. He is still smoking however down to approximately 1 cigarette per day. Has family history of mother with bypass in her 50s. 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 He admits that initially he felt a jittery sensation which normally happens when he has high blood pressure however developed more shortness of breath and not really any chest pain or pressure. He had mild tightness however currently states he does not have any actual chest tightness. He does have a history of left bundle-branch block however EKG does have sinus tachycardia with left bundle branch block with worsened ST elevation for V2 through V4 with borderline elevation in V5. White blood cell count 18, creatinine 1.3, lactic acid 4.1, AST 85, ALT 40, troponin 1.9, proBNP 4450. Chest x-ray shows diffuse pulmonary edema. He is currently on BiPAP however much more comfortable. He does admit to chronic mild kidney issues with creatinine stable 1.3. 2/2 Patient seen and examined. Patient was initially possibly trying to be transferred to [facility]. Patient underwent a heart catheterization yesterday which showed LAD 99% stenosis with thrombus as well as 99% RCA stenosis and the extremely elevated LVEDP 59. Patient therefore underwent left ventricular assist device placement from a right femoral approach and PCI of left main and LAD with balloon angioplasty of circumflex as well as PCI of RCA with shock wave lithotripsy. He currently has been weaned from BiPAP. He previously was having some chest tightness which appeared more related to heart failure which had been improved with nitro however nitro was able to be weaned off. The Impella was weaned down to the 5 however if going much lower than this to the P4 or P3, patient's low pressure dropping to the 70s over 60s. Creatinine has remained stable at 1.0. 2/3 Patient seen and examined. Patient did have lower blood pressures in the 70s over 50s off of blood pressure cuff however more 80s over 50s on arterial line and therefore was given 500 mL fluid bolus with some improvement blood pressure. He did get some sleep yesterday and denies any chest pain or pressure. Denies any significant shortness breath and currently on nasal cannula. He is having minimal oozing from his right femoral site. Platelets mildly dropping to 133 may be more consumptive as well as hemoglobin down to 11. No hematochezia or melena. Still getting hemolysis with blood work. PHYSICAL EXAMINATION Vital signs reviewed. CONSTITUTIONAL: No apparent distress, lying in reverse Trendelenburg HEENT: Head is normocephalic. Pupils are equal, round. Sclerae anicteric. Mucous membranes of the mouth are moist. No JVD. No carotid bruit. CHEST EXAMINATION: No crackles. No chest wall tenderness is noted on palpation or with deep breathing. HEART EXAMINATION: Regular rate and rhythm. S1, S2 heard. No murmurs, gallops or rub. ABDOMEN: Soft, nontender. Positive bowel sounds. EXTREMITIES: 2+ peripheral pulses, no lower extremity edema and no calf tenderness. NEUROLOGIC EXAMINATION: Patient is awake, alert and oriented x3. ASSESSMENT 1. Non-STEMI 2. Acute on chronic systolic heart failure 3. Cardiogenic shock 4. CAD status post PCI left main into LAD and RCA 2/ 5. PAD 6. Left subclavian steal 7. Left bundle branch block 8. History of abdominal aortic aneurysm 5.1 9. Tobacco abuse 10. Family history of CAD 11. Chronic kidney disease, per patient stable at 1.3 12. Anemia 13. Thrombocytopenia, rule out HIT PLAN Continue dual antiplatelets. Unable to tolerate any heart failure regimen secondary to hypotension. Drop in platelets to 133, rule out HIT. Stop heparin and switch over to Argatroban. Check repeat echo for Impella placement and EF Hopeful DC Impella today Appeared to be responding to IVF and keep NPO after breakfast for RHC today. Objective - Vital Signs Vital signs: Vital Signs Temp 98.5 F 05/23/23 04:00 Pulse 84 05/23/23 06:00 Resp 12 05/23/23 06:00 BP 83/59 05/23/23 06:00 Pulse Ox 93 L 05/23/23 06:00 FiO2 50 05/21/23 17:00 Intake & Output 05/22/23 05/23/23 05/23/23 18:59 06:59 18:59 Intake Total 1449.07 1304.555 Output Total 1675 500 Balance -225.93 804.555 Weight 82.5 kg Intake: IV 681 1208 Pressure Bag (0.9 Sodium 33 36 Chloride) Sodium Bicarb (1 Meq/ml) 48 72 12.5 ml In Dextrose 5% in Water 500 ml @ Per Protocol IV DIRECTED [facility] Rx#:[id number] Sodium Chloride 0.9% 1, 600 600 000 ml @ 50 mls/hr IV . Q20H [facility] Rx#:[id number] Sodium Chloride 0.9% 500 500 ml 500 ml @ 999 mls/hr IV .Q31M [facility] Rx#:[id number] Intake, IV Titration 118.07 21.555 Amount Heparin Sod,Pork in 0.45% 118.07 NaCl 25,000 unit In 0.45 % NaCl 1 250ml.bag @ 11.6 UNITS/KG/HR 9.997 mls/hr IV .Q24H [facility] Rx#: [id number] Norepinephrine 4 mg In 21.555 Sodium Chloride 0.9% 250 ml @ 0.03 MCG/KG/MIN 9. 327 mls/hr IV .Q24H [facility] Rx#:[id number] Oral 650 75 Output: Urine 1675 500 Other: Voiding Method Urinal Urinal # Voids 1 ABP, PAP, CO, CI - Last Documented Arterial Blood Pressure 81/51 - Labs CBC & Chem 7: 05/23/23 04:09 05/23/23 04:09 Labs: Abnormal Lab Results - Last 24 Hours (Table) 05/22/23 05/22/23 05/22/23 Range/Units 08:52 11:31 16:38 WBC (3.8-10.6) k/uL RBC (4.30-5.90) m/uL Hgb (13.0-17.5) gm/dL Hct (39.0-53.0) % Plt Count (150-450) k/uL Neutrophils # (1.3-7.7) k/uL APTT 53.7 H (22.0-30.0) sec Sodium (137-145) mmol/L Chloride (98-107) mmol/L BUN (9-20) mg/dL Glucose (74-99) mg/dL POC Glucose (mg/dL) 117 H (70-110) mg/dL Calcium (8.4-10.2) mg/dL Lactate Dehydrogenase 1772 H (120-246) U/L 05/22/23 05/22/23 05/23/23 Range/Units 20:28 21:05 04:09 WBC 12.9 H 11.6 H (3.8-10.6) k/uL RBC 3.78 L 3.63 L (4.30-5.90) m/uL Hgb 12.3 L 11.5 L (13.0-17.5) gm/dL Hct 35.8 L 34.2 L (39.0-53.0) % Plt Count 144 L 133 L (150-450) k/uL Neutrophils # 8.6 H (1.3-7.7) k/uL APTT (22.0-30.0) sec Sodium (137-145) mmol/L Chloride (98-107) mmol/L BUN (9-20) mg/dL Glucose (74-99) mg/dL POC Glucose (mg/dL) (70-110) mg/dL Calcium (8.4-10.2) mg/dL Lactate Dehydrogenase 1531 H (120-246) U/L 05/23/23 05/23/23 Range/Units 04:09 04:09 WBC (3.8-10.6) k/uL RBC (4.30-5.90) m/uL Hgb (13.0-17.5) gm/dL Hct (39.0-53.0) % Plt Count (150-450) k/uL Neutrophils # (1.3-7.7) k/uL APTT 48.8 H (22.0-30.0) sec Sodium 135 L (137-145) mmol/L Chloride 110 H (98-107) mmol/L BUN 35 H (9-20) mg/dL Glucose 101 H (74-99) mg/dL POC Glucose (mg/dL) (70-110) mg/dL Calcium 8.1 L (8.4-10.2) mg/dL Lactate Dehydrogenase (120-246) U/L Microbiology - Last 24 Hours (Table) 05/21/23 07:50 Blood Culture - Preliminary Blood
[2023-05-23 07:28] LABS: Basophils # (A) 0.1 k/uL (0-0.2); Basophils % (A) 1 %; Eosinophils # (A) 0.2 k/uL (0-0.7); Eosinophils % (A) 2 %; HCT 35.9 % (39.0-53.0); HGB 12.1 gm/dL (13.0-17.5); Lymphocytes # (A) 1.9 k/uL (1.0-4.8); Lymphocytes % (A) 15 %; MCH 32.2 pg (25.0-35.0); MCHC 33.7 g/dL (31.0-37.0); MCV 95.5 fL (80.0-100.0); Mean Platelet Volume 8.7; Monocytes # (A) 0.8 k/uL (0-1.0); Monocytes % (A) 6 %; Neutrophils # (A) 9.3 k/uL (1.3-7.7); Neutrophils % (A) 75 %; Platelet Count 139 k/uL (150-450); RBC 3.75 m/uL (4.30-5.90); RDW 13.2 % (11.5-15.5); WBC 12.3 k/uL (3.8-10.6)
[2023-05-23 07:36] LABS: INR 0.9 (<1.2); Partial Thromboplastin Time 44.5 sec (22.0-30.0); Prothrombin Time 10.2 sec (10.0-12.5)
--- NOTE | 2023-05-23 08:20 | XR ---
EXAMINATION TYPE: XR chest 1V portable DATE OF EXAM: 05/23/2023 HISTORY: Shortness of breath. COMPARISON: May 22, 2023 TECHNIQUE: Single view of the chest is submitted. FINDINGS: Demonstrated are scattered senescent parenchymal change. Increasing left lower lobe infiltrate. Correlate for developing pneumonia or atelectasis. The heart is stable. Hilar and mediastinal structures are within normal limits. Degenerative changes are seen of the dorsal spine. IMPRESSION: 1. Stable appearance and positioning of the LVAD device. 2.Increasing left lower lobe infiltrate. Correlate for developing pneumonia or atelectasis.
[2023-05-23] MEDS: ARGATROBAN 50 MG in SODIUM CHLORIDE 0.9% 50 ML IV SCH (08:37)
--- NOTE | 2023-05-23 09:29 | P.PN ---
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 Yesterday at approximately 3 AM he woke up suddenly with severe shortness of breath EMS was called and he was found to be in significant distress pale and lethargic and he was placed on positive airway ventilation with improvement. He was found to have a non-ST segment acute myocardial infarction and acute exacerbation of suspected systolic congestive heart failure. He had undergone urgent cardiac catheterization and had undergone penumbra aspiration thrombectomy of the LAD, PCI of the left main into the LAD with a stent placement, balloon angioplasty of the circumflex and stenting of the RCA. He also had an Impella placed. Usually in the intensive care unit he required BiPAP support 12/6 and 60% FiO2. Initial echocardiogram revealed a left ventricular ejection fraction of 10 to 15%. Postprocedure limited echocardiogram continued to show significant global hypokinesia with an ejection fraction of 10 to 15%. He is seen today in consultation in the ICU. He is currently sitting up in bed. Awake and alert in no acute distress. He is maintaining good O2 saturations in the 90s on 2 L/min per nasal cannula. He has a heparin drip running. He has normal saline at 50 MLS per hour. Impella remains in place at a P4 currently. X-ray reveals evidence of the left ventricular respiratory assistant device. No pleural effusion. No focal consolidation. No pneumothorax. Resolution of the basilar opacities. White count 20.4. Hemoglobin 14.1. Platelets 194. 5 3 Plascencia 515. Sodium 136. Potassium 4.2. Bicarb 19. BUN 40. Creatinine 1.09. Glucose 131. LDH 1860. Initial troponin 1.97. Peak troponin 146. Total cholesterol 269. LDL 163. proBNP 4450. Care unit. He is currently resting comfortably in bed. Awake and alert in no acute distress. No significant events overnight. He is maintaining O2 saturations in the 90s on 2 L/min per nasal cannula. He did not utilize the BiPAP. He remains on a heparin drip per weight-based protocol. Initiated on argatroban at 1 mcg/kg/min. Continued on normal saline at 50 MLS per hour. Currently off norepinephrine. Impella remains in place at P5. Platelets 139. INR 0.9. Sodium 135. Potassium 4.0. Bicarb 23. BUN 35. Creatinine 0.93. Glucose 101. Chest x-ray reveals increasing left lower lobe infiltrate. Stable appearance and position of the LVAD device. Blood culture reveals no growth thus far. Remains on aspirin and Brilinta. Objective - Vital Signs Vital signs: Vital Signs Temp 98.5 F 05/23/23 04:00 Pulse 96 05/23/23 09:00 Resp 18 05/23/23 09:00 BP 77/56 05/23/23 09:00 Pulse Ox 92 L 05/23/23 09:00 FiO2 50 05/21/23 17:00 Intake & Output 05/22/23 05/23/23 05/23/23 18:59 06:59 18:59 Intake Total 1449.07 1304.555 417 Output Total 1675 500 0 Balance -225.93 804.555 417 Weight 82.5 kg Intake: IV 681 1208 177 Pressure Bag (0.9 Sodium 33 36 9 Chloride) Sodium Bicarb (1 Meq/ml) 48 72 18 12.5 ml In Dextrose 5% in Water 500 ml @ Per Protocol IV DIRECTED [facility] Rx#:[id number] Sodium Chloride 0.9% 1, 600 600 150 000 ml @ 50 mls/hr IV . Q20H [facility] Rx#:[id number] Sodium Chloride 0.9% 500 500 ml 500 ml @ 999 mls/hr IV .Q31M ONE Rx#:[id number] Intake, IV Titration 118.07 21.555 Amount Heparin Sod,Pork in 0.45% 118.07 NaCl 25,000 unit In 0.45 % NaCl 1 250ml.bag @ 11.6 UNITS/KG/HR 9.997 mls/hr IV .Q24H [facility] Rx#: [id number] Norepinephrine 4 mg In 21.555 Sodium Chloride 0.9% 250 ml @ 0.03 MCG/KG/MIN 9. 327 mls/hr IV .Q24H [facility] Rx#:[id number] Oral 650 75 240 Output: Urine 1675 500 0 Other: Voiding Method Urinal Urinal Urinal # Voids 1 ABP, PAP, CO, CI - Last Documented Arterial Blood Pressure 71/53 - Exam GENERAL EXAM: Alert, pleasant 57-year-old male, on 2 L nasal cannula, comfortable in no apparent distress. HEAD: Normocephalic. EYES: Normal reaction of pupils, equal size. NOSE: Clear with pink turbinates. THROAT: No erythema or exudates. NECK: No masses, no JVD. CHEST: No chest wall deformity. LUNGS: Equal air entry with basilar crackles left greater than right. CVS: S1 and S2 normal with no audible murmur, regular rhythm. ABDOMEN: No hepatosplenomegaly, normal bowel sounds, no guarding or rigidity. SPINE: No scoliosis or deformity SKIN: No rashes CENTRAL NERVOUS SYSTEM: No focal deficits, tone is normal in all 4 extremities. EXTREMITIES: Right femoral Impella in place. There is no peripheral edema. No clubbing, no cyanosis. Peripheral pulses are intact. - Labs CBC & Chem 7: 05/23/23 07:13 05/23/23 04:09 Labs: Abnormal Lab Results - Last 24 Hours (Table) 05/22/23 05/22/23 05/22/23 Range/Units 08:52 11:31 16:38 WBC (3.8-10.6) k/uL RBC (4.30-5.90) m/uL Hgb (13.0-17.5) gm/dL Hct (39.0-53.0) % Plt Count (150-450) k/uL Neutrophils # (1.3-7.7) k/uL APTT 53.7 H (22.0-30.0) sec Sodium (137-145) mmol/L Chloride (98-107) mmol/L BUN (9-20) mg/dL Glucose (74-99) mg/dL POC Glucose (mg/dL) 117 H (70-110) mg/dL Calcium (8.4-10.2) mg/dL Lactate Dehydrogenase 1772 H (120-246) U/L 05/22/23 05/22/23 05/23/23 Range/Units 20:28 21:05 04:09 WBC 12.9 H 11.6 H (3.8-10.6) k/uL RBC 3.78 L 3.63 L (4.30-5.90) m/uL Hgb 12.3 L 11.5 L (13.0-17.5) gm/dL Hct 35.8 L 34.2 L (39.0-53.0) % Plt Count 144 L 133 L (150-450) k/uL Neutrophils # 8.6 H (1.3-7.7) k/uL APTT (22.0-30.0) sec Sodium (137-145) mmol/L Chloride (98-107) mmol/L BUN (9-20) mg/dL Glucose (74-99) mg/dL POC Glucose (mg/dL) (70-110) mg/dL Calcium (8.4-10.2) mg/dL Lactate Dehydrogenase 1531 H (120-246) U/L 05/23/23 05/23/23 05/23/23 Range/Units 04:09 04:09 07:13 WBC 12.3 H (3.8-10.6) k/uL RBC 3.75 L (4.30-5.90) m/uL Hgb 12.1 L (13.0-17.5) gm/dL Hct 35.9 L (39.0-53.0) % Plt Count 139 L (150-450) k/uL Neutrophils # 9.3 H (1.3-7.7) k/uL APTT 48.8 H (22.0-30.0) sec Sodium 135 L (137-145) mmol/L Chloride 110 H (98-107) mmol/L BUN 35 H (9-20) mg/dL Glucose 101 H (74-99) mg/dL POC Glucose (mg/dL) (70-110) mg/dL Calcium 8.1 L (8.4-10.2) mg/dL Lactate Dehydrogenase (120-246) U/L 05/23/23 Range/Units 07:13 WBC (3.8-10.6) k/uL RBC (4.30-5.90) m/uL Hgb (13.0-17.5) gm/dL Hct (39.0-53.0) % Plt Count (150-450) k/uL Neutrophils # (1.3-7.7) k/uL APTT 44.5 H (22.0-30.0) sec Sodium (137-145) mmol/L Chloride (98-107) mmol/L BUN (9-20) mg/dL Glucose (74-99) mg/dL POC Glucose (mg/dL) (70-110) mg/dL Calcium (8.4-10.2) mg/dL Lactate Dehydrogenase (120-246) U/L Microbiology - Last 24 Hours (Table) 05/21/23 07:50 Blood Culture - Preliminary Blood Assessment and Plan Assessment: Acute non-ST segment elevation myocardial infarction status post Impella placement, penumbra aspiration thrombectomy of the LAD, PCI of the left main into LAD stented, PTBA of the circumflex, stenting to the RCA. Postoperative day #2 Cardiogenic shock requiring Impella placement Severe ischemic cardiomyopathy with global hypokinesia and ejection fraction of 10 to 15% Chronic and ongoing tobacco dependence Chronic obstructive pulmonary disease Hypertension Hyperlipidemia History of peripheral arterial disease History of subclavian artery stenosis/subclavian steal on the left History of abdominal aortic aneurysm measuring 5.5 Plan: The patient was seen and evaluated Chest x-ray, labs and medications reviewed Currently stable and on 2 L nasal cannula Impella remains in place Switched from heparin to argatroban per cardiology Continued on Brilinta and aspirin Plan is for right heart cath today Follow-up echo pending Discontinue BiPAP We will continue to follow I have personally seen and examined the patient, performed the documentation and the assessment and plan as written. Number of minutes spent on the visit: 10.
--- NOTE | 2023-05-23 11:53 | CA ---
Transthoracic Echo Report Name: Monica Franco Age: 57 Gender: M : 1965 Exam Date: 05/23/2023 08:45 Exam Location: [facility] Ht (in): 71 Wt (lb): 179 Ordering Physician: Miguel Urbano DO ([email or web address]) Attending/Referring Phys: Human Resources Compensation Analyst Tere Mackey RDCS Procedure CPT: Indications: re: Impella, EF Cardiac Hx: Technical Quality: Fair Contrast 1: Total Dose (mL): Contrast 2: Total Dose (mL): MEASUREMENTS (Male / Female) Normal Values 2D ECHO LV Diastolic Diameter PLAX 5.4 cm 4.2 - 5.9 / 3.9 - 5.3 cm LV Systolic Diameter PLAX 4.4 cm IVS Diastolic Thickness 1.5 cm 0.6 - 1.0 / 0.6 - 0.9 cm LVPW Diastolic Thickness 1.4 cm 0.6 - 1.0 / 0.6 - 0.9 cm LV Relative Wall Thickness 0.5 LV Diastolic Volume MOD BP 195.1 cm??? 67 - 155 / 56 - 104 cm??? LV Systolic Volume MOD BP 135.9 cm??? 22 - 58 / 19 - 49 cm??? LV Ejection Fraction MOD BP 30.3 % >= 55 % LV Cardiac Index MOD BP 2486.2 cm???/min???m??? LV Diastolic Volume MOD 4C 228.3 cm??? LV Systolic Volume MOD 4C 147.9 cm??? LV Ejection Fraction MOD 4C 35.2 % LV Cardiac Index MOD 4C 3377.5 cm???/min???m??? LV Diastolic Length 4C 9.7 cm LV Systolic Length 4C 9.0 cm LV Diastolic Volume MOD 2C 143.5 cm??? LV Systolic Volume MOD 2C 113.4 cm??? LV Ejection Fraction MOD 2C 21.0 % LV Cardiac Index MOD 2C 1263.3 cm???/min???m??? LV Diastolic Length 2C 8.3 cm LV Systolic Length 2C 8.1 cm FINDINGS Left Ventricle Moderately increased septal wall thickness. Moderately increased left ventricular diastolic volume. Severely increased left ventricular systolic volume. Moderately decreased left ventricular ejection fraction. Left ventricular ejection fraction is estimated at 30-35 %. Impala device noted in place. Right Ventricle Right Atrium Left Atrium Mitral Valve Aortic Valve Tricuspid Valve Pulmonic Valve Pericardium No pericardial effusion. Aorta CONCLUSIONS Moderately increased left ventricular wall thickness Left ventricular ejection fraction 25-30% with Impella in place Impella 3.7cm to the aortic valve Previewed by: Dr. Miguel Urbano DO (Electronically Signed) Final Date: 23 May 2023 11:53
[2023-05-23] MEDS: IV FLUID CONTINUATION 1,000 ML IV ONE (18:35)
[2023-05-23] MEDS: MIDAZOLAM 2 MG/2 ML VIAL IVP ONE (19:00)
[2023-05-23] MEDS: LIDOCAINE 1% INJ 10MG/ML (20 ML MDV) SQ ONE (19:01)
--- NOTE | 2023-05-23 19:19 | PN ---
PROGRESS NOTE DATE OF SERVICE: 05/23/2023 CHIEF COMPLAINT: Status post STEMI with cardiogenic shock. HISTORY OF PRESENT ILLNESS: This gentleman is fairly stable for the time being. Blood pressure is still slightly low. He is still on the Impella. This may be removed later today. Renal function remains good. REVIEW OF SYSTEMS: He states he feels well. He has no short of breath or having any chest pain. He is alert. PHYSICAL EXAMINATION: VITAL SIGNS: Systolic pressure is in the 90s. HEAD, EARS, EYES, NOSE, MOUTH, AND THROAT: Normal. CHEST: Clear. CARDIAC: Normal. IMPRESSION: 1. Status post STEMI with cardiogenic shock. 2. Chronic obstructive pulmonary disease. 3. Left subclavian steal. 4. Abdominal aortic aneurysm. PLAN: Continue to follow with Cardiology and Intensive Medicine while he is in the unit. His prognosis is guarded. Considering his lack of cardiac output with a low blood pressure, the patient is going back today for another angioplasty of the right coronary. MMODL / IJN: [id number] /
[2023-05-23] MEDS ORDERED: fentaNYL (PF) 50 MCG/ML 2 ML AMP ONE (19:26)
[2023-05-23] MEDS: fentaNYL (PF) 50 MCG/1 ML VIAL IVP ONE (19:45)
[2023-05-23 20:09] LABS: Allen Test Performed? Yes
[2023-05-23 20:09] LABS: Allen Test Performed? Yes
[2023-05-23 20:09] LABS: Allen Test Performed? Yes
[2023-05-23 20:10] LABS: ABG Base Excess -0.1 mmol/L; ABG HCO3 24 mmol/L (21-25); ABG Oxygen Saturation 63.6 % (94-97); ABG PCO2 34 mmHg (35-45); ABG PH 7.45 (7.35-7.45); ABG PO2 34 mmHg (83-108)
[2023-05-23 20:12] LABS: ABG Base Excess -0.6 mmol/L; ABG HCO3 23 mmol/L (21-25); ABG PCO2 31 mmHg (35-45); ABG PH 7.46 (7.35-7.45); ABG PO2 73 mmHg (83-108)
[2023-05-23 20:13] LABS: ABG Base Excess -0.3 mmol/L; ABG HCO3 24 mmol/L (21-25); ABG Oxygen Saturation 67.3 % (94-97); ABG PCO2 36 mmHg (35-45); ABG PH 7.43 (7.35-7.45)
[2023-05-23 20:14] LABS: ABG PO2 36 mmHg (83-108)
[2023-05-23 20:15] LABS: Glucose,Whole Blood 104 mg/dL (70-110)
[2023-05-23] MEDS: SIMETHICONE 80 MG CHEWABLE PO PRN (23:45)
[2023-05-24 04:22] LABS: HCT 33.8 % (39.0-53.0); HGB 11.5 gm/dL (13.0-17.5); MCH 32.4 pg (25.0-35.0); MCV 95.4 fL (80.0-100.0); Mean Platelet Volume 8.6; Platelet Count 125 k/uL (150-450); RBC 3.55 m/uL (4.30-5.90); RDW 13.1 % (11.5-15.5); WBC 12.9 k/uL (3.8-10.6)
[2023-05-24 04:33] LABS: African American GFR (CKD) >90 (>60 ml/min/1.73 sqM); Anion Gap 2 mmol/L; Blood Urea Nitrogen 26 mg/dL (9-20); Calcium 8.3 mg/dL (8.4-10.2); Carbon Dioxide 23 mmol/L (22-30); Chloride 110 mmol/L (98-107); Glucose 95 mg/dL (74-99); Non-African American GFR(CKD) >90 (>60 ml/min/1.73 sqM); Potassium 3.9 mmol/L (3.5-5.1); Sodium 135 mmol/L (137-145)
[2023-05-24] MEDS ORDERED: Potassium Replacement Protocol 1 EACH MISC MISCELLANE PRN (04:39)
[2023-05-24] MEDS: POTASSIUM CHLORIDE ER 20 MEQ TAB.ER PO SCH (05:55)
--- NOTE | 2023-05-24 07:50 | XR ---
EXAMINATION TYPE: XR chest 1V portable DATE OF EXAM: 05/24/2023 HISTORY: Shortness of breath. COMPARISON: May 23, 2023 TECHNIQUE: Single view of the chest is submitted. FINDINGS: Demonstrated are scattered senescent parenchymal change. Improving left lower lobe infiltrate. The heart is stable. Hilar and mediastinal structures are within normal limits. Degenerative changes are seen of the dorsal spine. IMPRESSION: 1. Improving left lower lobe infiltrate.
--- NOTE | 2023-05-24 09:49 | P.PN ---
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 He does admit to some episodes of chest pain and heaviness usually if his heart rate increases or if his blood pressure goes up over last few months. [place] ins[place] and apparently no recent workup however and has not had an echo or stress test. With his PhD he was seeing a vascular surgeon without any recommendations for any intervention and additionally has a abdominal aortic aneurysm measuring approximately 5.1 cm. He is still smoking however down to approximately 1 cigarette per day. Has family history of mother with bypass in her 50s. 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 He admits that initially he felt a jittery sensation which normally happens when he has high blood pressure however developed more shortness of breath and not really any chest pain or pressure. He had mild tightness however currently states he does not have any actual chest tightness. He does have a history of left bundle-branch block however EKG does have sinus tachycardia with left bundle branch block with worsened ST elevation for V2 through V4 with borderline elevation in V5. White blood cell count 18, creatinine 1.3, lactic acid 4.1, AST 85, ALT 40, troponin 1.9, proBNP 4450. Chest x-ray shows diffuse pulmonary edema. He is currently on BiPAP however much more comfortable. He does admit to chronic mild kidney issues with creatinine stable 1.3. 2/2 Patient seen and examined. Patient was initially possibly trying to be transferred to [facility]. Patient underwent a heart catheterization yesterday which showed LAD 99% stenosis with thrombus as well as 99% RCA stenosis and the extremely elevated LVEDP 59. Patient therefore underwent left ventricular assist device placement from a right femoral approach and PCI of left main and LAD with balloon angioplasty of circumflex as well as PCI of RCA with shock wave lithotripsy. He currently has been weaned from BiPAP. He previously was having some chest tightness which appeared more related to heart failure which had been improved with nitro however nitro was able to be weaned off. The Impella was weaned down to the 5 however if going much lower than this to the P4 or P3, patient's low pressure dropping to the 70s over 60s. Creatinine has remained stable at 1.0. 05/23 Patient seen and examined. Patient did have lower blood pressures in the 70s over 50s off of blood pressure cuff however more 80s over 50s on arterial line and therefore was given 500 mL fluid bolus with some improvement blood pressure. He did get some sleep yesterday and denies any chest pain or pressure. Denies any significant shortness breath and currently on nasal cannula. He is having minimal oozing from his right femoral site. Platelets mildly dropping to 133 may be more consumptive as well as hemoglobin down to 11. No hematochezia or melena. Still getting hemolysis with blood work. 05/24 Patient seen and examined. Patient underwent right heart catheterization yesterday with cardiac index approximate 3.0 with LVEDP 26. He has been able tolerate lying flat. The Impella was weaned down and then discontinued. He had been transitioned to Argatroban however this was discontinued after stopping the Impella. Right femoral site without any hematoma. There was some discrepancy of aortic pressure and right brachial pressure by approximate 6 mmHg and for the left brachial pressure approximately 18-20 mmHg during heart catheterization. Creatinine remains stable. Left ventricular ejection fraction had improved 25- 30% however this was with Impella in place. PHYSICAL EXAMINATION Vital signs reviewed. CONSTITUTIONAL: No apparent distress HEENT: Head is normocephalic. Pupils are equal, round. Sclerae anicteric. Mucous membranes of the mouth are moist. No JVD. No carotid bruit. CHEST EXAMINATION: No crackles. No chest wall tenderness is noted on palpation or with deep breathing. HEART EXAMINATION: Regular rate and rhythm. S1, S2 heard. No murmurs, gallops or rub. ABDOMEN: Soft, nontender. Positive bowel sounds. EXTREMITIES: 2+ peripheral pulses, no lower extremity edema and no calf tenderness. NEUROLOGIC EXAMINATION: Patient is awake, alert and oriented x3. ASSESSMENT 1. Non-STEMI 2. Acute on chronic systolic heart failure 3. Cardiogenic shock 4. CAD status post PCI left main into LAD and RCA 2/ 5. PAD 6. Left subclavian steal 7. Left bundle branch block 8. History of abdominal aortic aneurysm 5.1 9. Tobacco abuse 10. Family history of CAD 11. Chronic kidney disease, per patient stable at 1.3 12. Anemia 13. Thrombocytopenia, rule out HIT PLAN Continue dual antiplatelets. There is some discrepancy of Central aortic pressure and his right brachial pressure of approximate 6 mm. Therefore goal map on right brachial above 60mmHg. he has not been symptomatic with his lower blood pressure readings. Start low-dose Toprol 12.5 mg daily and hold for MAP < 60mmHg. His statin intolerance was a number of issues after starting a number of medi cations and could not tolerate for week. May have been related to other medications. Trial of Lipitor. If unable to tolerate start Repatha in the office Patient will need LifeVest going home Okay for transfer from ICU Increase activity as tolerated Objective - Vital Signs Vital signs: Vital Signs Temp 98.4 F 05/24/23 08:00 Pulse 78 05/24/23 08:00 Resp 12 05/24/23 08:00 BP 93/66 05/24/23 08:00 Pulse Ox 93 L 05/24/23 08:00 FiO2 50 05/21/23 17:00 Intake & Output 05/23/23 05/24/23 05/24/23 18:59 06:59 18:59 Intake Total 1048.000 350 290 Output Total 1010 730 0 Balance 38.000 -380 290 Weight 83.5 kg Intake: IV 758 Pressure Bag (0.9 Sodium 36 Chloride) Sodium Bicarb (1 Meq/ml) 72 12.5 ml In Dextrose 5% in Water 500 ml @ Per Protocol IV DIRECTED [facility] Rx#:[id number] Sodium Chloride 0.9% 1, 600 000 ml @ 50 mls/hr IV . Q20H [facility] Rx#:[id number] Intake, IV Titration 50.000 Amount Argatroban 50 mg In 50.000 Sodium Chloride 0.9% 50 ml @ 1 MCG/KG/MIN 4.95 mls/hr IV .Q10H7M [facility] Rx# :[id number] Oral 240 350 290 Output: Urine 1010 730 0 Straight 550 Other: Voiding Method Urinal Indwelling Catheter Urinal # Bowel Movements 1 ABP, PAP, CO, CI - Last Documented Arterial Blood Pressure 87/51 - Labs CBC & Chem 7: 05/24/23 03:49 05/24/23 03:49 Labs: Abnormal Lab Results - Last 24 Hours (Table) 05/23/23 05/23/23 05/23/23 Range/Units 07:00 13:53 16:59 WBC (3.8-10.6) k/uL RBC (4.30-5.90) m/uL Hgb (13.0-17.5) gm/dL Hct (39.0-53.0) % Plt Count (150-450) k/uL APTT 37.6 H 43.0 H (22.0-30.0) sec ABG pH (7.35-7.45) ABG pCO2 (35-45) mmHg ABG pO2 (83-108) mmHg ABG O2 Saturation (94-97) % Sodium (137-145) mmol/L Chloride (98-107) mmol/L BUN (9-20) mg/dL Calcium (8.4-10.2) mg/dL Lactate Dehydrogenase 1357 H (120-246) U/L 05/23/23 05/23/23 05/23/23 Range/Units 19:18 19:19 19:20 WBC (3.8-10.6) k/uL RBC (4.30-5.90) m/uL Hgb (13.0-17.5) gm/dL Hct (39.0-53.0) % Plt Count (150-450) k/uL APTT (22.0-30.0) sec ABG pH 7.46 H (7.35-7.45) ABG pCO2 34 L 31 L (35-45) mmHg ABG pO2 34 L* 36 L* 73 L (83-108) mmHg ABG O2 Saturation 63.6 L 67.3 L (94-97) % Sodium (137-145) mmol/L Chloride (98-107) mmol/L BUN (9-20) mg/dL Calcium (8.4-10.2) mg/dL Lactate Dehydrogenase (120-246) U/L 05/24/23 05/24/23 Range/Units 03:49 03:49 WBC 12.9 H (3.8-10.6) k/uL RBC 3.55 L (4.30-5.90) m/uL Hgb 11.5 L (13.0-17.5) gm/dL Hct 33.8 L (39.0-53.0) % Plt Count 125 L (150-450) k/uL APTT (22.0-30.0) sec ABG pH (7.35-7.45) ABG pCO2 (35-45) mmHg ABG pO2 (83-108) mmHg ABG O2 Saturation (94-97) % Sodium 135 L (137-145) mmol/L Chloride 110 H (98-107) mmol/L BUN 26 H (9-20) mg/dL Calcium 8.3 L (8.4-10.2) mg/dL Lactate Dehydrogenase (120-246) U/L Microbiology - Last 24 Hours (Table) 05/21/23 07:50 Blood Culture - Preliminary Blood
[2023-05-24] MEDS: DAPAGLIFLOZIN PROPANEDIOL 10 MG TABLET PO SCH (10:25)
[2023-05-24] MEDS: ATORVASTATIN 80 MG TAB PO SCH (10:25)
[2023-05-24] MEDS: METOPROLOL SUCCINATE (ER) 25 MG TAB.ER.24H PO SCH (10:25)
--- NOTE | 2023-05-24 11:39 | P.PN ---
Subjective Progress Note Date: 05/24/23 This is a very pleasant 57-year-old male patient with a known history of chronic obstructive pulmonary disease chronic and ongoing tobacco dependence, occasional marijuana use, abdominal aortic aneurysm measuring 5.5 cm, hypertension, hyperlipidemia, peripheral arterial disease, subclavian steal on the left. Yesterday at approximately 3 AM he woke up suddenly with severe shortness of breath EMS was called and he was found to be in significant distress pale and lethargic and he was placed on positive airway ventilation with improvement. He was found to have a non-ST segment acute myocardial infarction and acute exacerbation of suspected systolic congestive heart failure. He had undergone urgent cardiac catheterization and had undergone penumbra aspiration thrombectomy of the LAD, PCI of the left main into the LAD with a stent placement, balloon angioplasty of the circumflex and stenting of the RCA. He also had an Impella placed. Usually in the intensive care unit he required BiPAP support 12/6 and 60% FiO2. Initial echocardiogram revealed a left ventricular ejection fraction of 10 to 15%. Postprocedure limited echocardiogram continued to show significant global hypokinesia with an ejection fraction of 10 to 15%. He is seen today in consultation in the ICU. He is currently sitting up in bed. Awake and alert in no acute distress. He is maintaining good O2 saturations in the 90s on 2 L/min per nasal cannula. He has a heparin drip running. He has normal saline at 50 MLS per hour. Impella remains in place at a P4 currently. X-ray reveals evidence of the left ventricular visitor services information assistant device. No pleural effusion. No focal consolidation. No pneumothorax. Resolution of the basilar opacities. White count 20.4. Hemoglobin 14.1. Platelets 194. 5 3 Plascencia 515. Sodium 136. Potassium 4.2. Bicarb 19. BUN 40. Creatinine 1.09. Glucose 131. LDH 1860. Initial troponin 1.97. Peak troponin 146. Total cholesterol 269. LDL 163. proBNP 4450. Care unit. He is currently resting comfortably in bed. Awake and alert in no acute distress. No significant events overnight. He is maintaining O2 saturations in the 90s on 2 L/min per nasal cannula. He did not utilize the BiPAP. He remains on a heparin drip per weight-based protocol. Initiated on argatroban at 1 mcg/kg/min. Continued on normal saline at 50 MLS per hour. Currently off norepinephrine. Impella remains in place at P5. Platelets 139. INR 0.9. Sodium 135. Potassium 4.0. Bicarb 23. BUN 35. Creatinine 0.93. Glucose 101. Chest x-ray reveals increasing left lower lobe infiltrate. Stable appearance and position of the LVAD device. Blood culture reveals no growth thus far. Remains on aspirin and Brilinta. The patient is seen today May 24, 2023 in follow-up in the intensive care unit. He is currently resting comfortably in bed. Awake and alert in no acute distress. Denies any shortness of breath, cough or congestion. He denies any chest pain. He did undergo a right heart cath yesterday. His Impella was removed. His ejection fraction is 25 to 30% while on the Impella. Chest x-ray shows improving left lower lobe infiltrate. Blood culture revealed no growth. White count 12.9. Hemoglobin 11.5. Platelets 125. Sodium 135. Potassium 3.9. Bicarb 23. BUN 26. Creatinine 0.87. Glucose 95. He is continued on aspirin and Brilinta. Objective - Vital Signs Vital signs: Vital Signs Temp 98.4 F 05/24/23 09:25 Pulse 95 05/24/23 11:00 Resp 16 05/24/23 11:00 BP 87/62 05/24/23 11:00 Pulse Ox 96 05/24/23 11:00 FiO2 50 05/21/23 17:00 Intake & Output 05/23/23 05/24/23 05/24/23 18:59 06:59 18:59 Intake Total 1048.000 350 290 Output Total 1010 730 0 Balance 38.000 -380 290 Weight 83.5 kg Intake: IV 758 Pressure Bag (0.9 Sodium 36 Chloride) Sodium Bicarb (1 Meq/ml) 72 12.5 ml In Dextrose 5% in Water 500 ml @ Per Protocol IV DIRECTED SUSHIL Rx#:[id number] Sodium Chloride 0.9% 1, 600 000 ml @ 50 mls/hr IV . Q20H SUSHIL Rx#:[id number] Intake, IV Titration 50.000 Amount Argatroban 50 mg In 50.000 Sodium Chloride 0.9% 50 ml @ 1 MCG/KG/MIN 4.95 mls/hr IV .Q10H7M SUSHIL Rx# :[id number] Oral 240 350 290 Output: Urine 1010 730 0 Straight 550 Other: Voiding Method Urinal Indwelling Catheter Urinal # Bowel Movements 1 ABP, PAP, CO, CI - Last Documented Arterial Blood Pressure 87/51 - Exam GENERAL EXAM: Alert, oriented 57-year-old male, on room air, comfortable in no apparent distress. HEAD: Normocephalic. EYES: Normal reaction of pupils, equal size. NOSE: Clear with pink turbinates. THROAT: No erythema or exudates. NECK: No masses, no JVD. CHEST: No chest wall deformity. LUNGS: Equal air entry with basilar crackles left greater than right. CVS: S1 and S2 normal with no audible murmur, regular rhythm. ABDOMEN: No hepatosplenomegaly, normal bowel sounds, no guarding or rigidity. SPINE: No scoliosis or deformity SKIN: No rashes CENTRAL NERVOUS SYSTEM: No focal deficits, tone is normal in all 4 extremities. EXTREMITIES: Right femoral Impella removed. There is no peripheral edema. No clubbing, no cyanosis. Peripheral pulses are intact. - Labs CBC & Chem 7: 05/24/23 03:49 05/24/23 03:49 Labs: Abnormal Lab Results - Last 24 Hours (Table) 05/23/23 05/23/23 05/23/23 Range/Units 07:00 13:53 16:59 WBC (3.8-10.6) k/uL RBC (4.30-5.90) m/uL Hgb (13.0-17.5) gm/dL Hct (39.0-53.0) % Plt Count (150-450) k/uL APTT 37.6 H 43.0 H (22.0-30.0) sec ABG pH (7.35-7.45) ABG pCO2 (35-45) mmHg ABG pO2 (83-108) mmHg ABG O2 Saturation (94-97) % Sodium (137-145) mmol/L Chloride (98-107) mmol/L BUN (9-20) mg/dL Calcium (8.4-10.2) mg/dL Lactate Dehydrogenase 1357 H (120-246) U/L 05/23/23 05/23/23 05/23/23 Range/Units 19:18 19:19 19:20 WBC (3.8-10.6) k/uL RBC (4.30-5.90) m/uL Hgb (13.0-17.5) gm/dL Hct (39.0-53.0) % Plt Count (150-450) k/uL APTT (22.0-30.0) sec ABG pH 7.46 H (7.35-7.45) ABG pCO2 34 L 31 L (35-45) mmHg ABG pO2 34 L* 36 L* 73 L (83-108) mmHg ABG O2 Saturation 63.6 L 67.3 L (94-97) % Sodium (137-145) mmol/L Chloride (98-107) mmol/L BUN (9-20) mg/dL Calcium (8.4-10.2) mg/dL Lactate Dehydrogenase (120-246) U/L 05/24/23 05/24/23 Range/Units 03:49 03:49 WBC 12.9 H (3.8-10.6) k/uL RBC 3.55 L (4.30-5.90) m/uL Hgb 11.5 L (13.0-17.5) gm/dL Hct 33.8 L (39.0-53.0) % Plt Count 125 L (150-450) k/uL APTT (22.0-30.0) sec ABG pH (7.35-7.45) ABG pCO2 (35-45) mmHg ABG pO2 (83-108) mmHg ABG O2 Saturation (94-97) % Sodium 135 L (137-145) mmol/L Chloride 110 H (98-107) mmol/L BUN 26 H (9-20) mg/dL Calcium 8.3 L (8.4-10.2) mg/dL Lactate Dehydrogenase (120-246) U/L Microbiology - Last 24 Hours (Table) 05/21/23 07:50 Blood Culture - Preliminary Blood Assessment and Plan Assessment: Acute non-ST segment elevation myocardial infarction status post Impella placement, penumbra aspiration thrombectomy of the LAD, PCI of the left main into LAD stented, PTBA of the circumflex, stenting to the RCA. Postoperative day #3. 05/23/2023 and Impella removed. Cardiogenic shock requiring Impella placement and subsequent removal Severe ischemic cardiomyopathy with global hypokinesia and ejection fraction of 10 to 15% increased 25 to 30% while on the Impella Chronic and ongoing tobacco dependence Chronic obstructive pulmonary disease Hypertension Hyperlipidemia History of peripheral arterial disease History of subclavian artery stenosis/subclavian steal on the left History of abdominal aortic aneurysm measuring 5.5 Plan: The patient was seen and evaluated Chest x-ray, labs and medications reviewed Currently stable and on room air Impella removed Continued on Brilinta and aspirin We will continue to follow I have personally seen and examined the patient, performed the documentation and the assessment and plan as written. Number of minutes spent on the visit: 10.
--- NOTE | 2023-05-24 22:46 | PN ---
PROGRESS NOTE DATE OF SERVICE: 05/24/2023 CHIEF COMPLAINT: Acute STEMI with cardiogenic shock. HISTORY OF PRESENT ILLNESS: This gentleman is doing fairly well. Impella has been removed. He is not short of breath or having any chest pain. Went to the cath laboratory technician yesterday for management of his RCA occlusion. He is doing well other than not maintaining a sufficient systolic blood pressure. PHYSICAL EXAMINATION: GENERAL: Perfusion is good. He is awake and alert. CHEST: Breath sounds are heard bilaterally and his chest x-ray is improving. CARDIAC: He does have significant cardiomegaly. Peripheral perfusion is adequate. IMPRESSION: 1. Status post ST elevation myocardial infarction with cardiogenic shock. 2. Hypotension. 3. Chronic obstructive pulmonary disease. 4. Atherosclerotic cardiovascular disease. 5. Abdominal aortic aneurysm. 6. Left subclavian steal. PLAN: No change in his program at this time with the hope that his myocardium recovers and that he has enough residual left ventricular myocardium to be functional. MMODL / IJN: [id number] /
--- NOTE | 2023-05-24 23:33 | P.CARDCATH ---
Description of Procedure: PROCEDURES PERFORMED: Right heart catheterization, ultrasound guided venous access, removal of Impella and closure of right femoral arteriotomy DATE: 05/23/2023 INDICATION: Systolic heart failure, cardiogenic shock status post Impella CP placement CONSENT:I have discussed the risks, benefits and alternative therapies for the above-mentioned procedure and for both sedation/analgesia as well as necessary blood product administration, if indicated, as they pertain to this patient. The patient has indicated understanding and acceptance of the risks and procedures discussed. PROCEDURE: After the risks, benefits and alternatives of the above mentioned procedure explained in detail with the patient, informed consent was obtained. Patient was taken to the catheterization lab and prepped and draped in usual fashion. Ultrasound guidance was used to assess for venous access. 1% lidocaine was used to anesthetize the right brachial area. A 6-Occitan Stoddard-Sanya catheter was inserted in the right atrium, right ventricle, pulmonary artery and pulmonary Wedge positions and pressure measurements and thermodilution was performed. Measurements were obtained after the Impella had been withdrawn back into the aorta on P2. Measurements were again obtained for thermodilution after the Impella have been removed entirely. The Impella was removed. Due to some concern of low blood pressures and some discrepancy with patient having subclavian stenosis, a pigtail catheter was inserted from the right femoral sheath into the left ventricle and aorta. There was approximately a 15 mm systolic difference from the aorta to the left brachial blood pressure and approximately a 6 mm difference from the aortic to the right brachial readings. The 14-Occitan sheath was removed and the 2 Percloses were tightened with hemostasis achieved. The Stoddard Sanya catheter was removed and the brachial sheath removed with pressure held. The patient tolerated the procedure well. Patient was transported back to the post catheterization holding area in stable condition. Conscious Sedation: Patient was monitored under the direct supervision of myself for conscious sedation using Versed and fentanyl for a total duration of 32 minutes HEMODYNAMICS: Aorta: 93/61 Left brachial (cuff) 78/61 Right brachial (cuff) 85/52 LV: 95/4, LVEDP 21 PCWP: 31 PA: 50/27 RV: 51/6 RA: 11 Pulmonary artery oxygen saturation 64% Right atrial oxygen saturation 67% Femoral artery oxygen saturation: 96% Cardiac output by Stu: 6.0 L/m Cardiac index by Stu: 2.9 L/m/m Cardiac output by thermodilution: 6.3 L/m Cardiac index by thermodilution: 3.1 L/m/m FINAL IMPRESSION: 1. Status post Impella removal 2. Mildly elevated left and right sided filling pressures 3. Normal cardiac outpt and cardiac index off of Impella 4. Approximately 15 mmHg systolic difference in left brachial and central aortic and 6 mmHg difference right brachial and central aortic pressures PLAN: Monitor patient off Impella Add 6 mmHg to right brachial pressure for central pressures
[2023-05-25 05:05] LABS: HCT 32.3 % (39.0-53.0); MCH 31.9 pg (25.0-35.0); MCHC 34.1 g/dL (31.0-37.0); MCV 93.5 fL (80.0-100.0); Mean Platelet Volume 9.9; Platelet Count 120 k/uL (150-450); RBC 3.45 m/uL (4.30-5.90); RDW 13.3 % (11.5-15.5); WBC 7.9 k/uL (3.8-10.6)
[2023-05-25 05:37] LABS: African American GFR (CKD) >90 (>60 ml/min/1.73 sqM); Anion Gap 2 mmol/L; Blood Urea Nitrogen 23 mg/dL (9-20); Calcium 8.1 mg/dL (8.4-10.2); Carbon Dioxide 23 mmol/L (22-30); Chloride 111 mmol/L (98-107); Glucose 85 mg/dL (74-99); Non-African American GFR(CKD) 90 (>60 ml/min/1.73 sqM); Potassium 3.9 mmol/L (3.5-5.1); Sodium 136 mmol/L (137-145)
[2023-05-25] MEDS: POTASSIUM CHLORIDE ER 20 MEQ TAB.ER PO SCH (06:43)
--- NOTE | 2023-05-25 09:30 | P.PN ---
Subjective Progress Note Date: 05/25/23 57-year-old female patient being seen in follow-up in the intensive care the patient is known to have CAD and she is post acute non-ST segment elevation myocardial infarction with underlying cardiomyopathy with an ejection fraction of 10 to 15%. The patient is post coronary intervention with insertion of Impella, penumbra aspiration thrombectomy of the LAD, PCI of the left main into LAD with stenting and PTCA of the circumflex and stenting of the RCA. The patient is postop day #4. The procedure was completed and the Impella was removed. The patient is also known to have multiple medical problems including COPD, hypertension, hyperlipidemia, abdominal aortic aneurysm measuring up to 4.5 cm in size in addition to a subclavian artery stenosis with subclavian steal on the left. The patient is currently on room air oxygen. Hemodynamically stable on no pressors. The patient is on a combination of aspirin and Brilinta. The patient is also on Toprol XL 12.5 mg p.o. daily and Farxiga 10 mg p.o. daily and high-dose statins with Lipitor 80 mg p.o. daily. No significant shortness of breath or chest pain. Most recent chest x-ray from yesterday showed improvement in left lower lobe pulmonary infiltrate without any other acute cardiopulmonary abnormalities. The patient is awake and alert and communicating. The patient is currently on room air oxygen. His blood pressure is stable. Is on no pressors. I reviewed the chest x-ray from yesterday shows no acute abnormalities. The white cycles at 7.9 with a hemoglobin of 11 and a platelet count of 120. BUN is at 23 with a creatinine of 0.9 and a sodium level is at 136. Medications remain unchanged. The patient is tolerating the beta blockers. He is also on a combination of aspirin and Brilinta. He is also on Farxiga. Objective - Vital Signs Vital signs: Vital Signs Temp 98.8 F 05/25/23 08:00 Pulse 92 05/25/23 08:00 Resp 17 05/25/23 08:00 BP 91/68 05/25/23 08:00 Pulse Ox 95 05/25/23 08:56 FiO2 50 05/21/23 17:00 Intake & Output 05/24/23 05/25/23 05/25/23 18:59 06:59 18:59 Intake Total 290 Output Total 0 950 Balance 290 -950 Weight 82.9 kg Intake: Oral 290 Output: Urine 0 950 Other: Voiding Method Urinal Urinal # Voids 2 # Bowel Movements 1 ABP, PAP, CO, CI - Last Documented Arterial Blood Pressure 87/51 - Exam GENERAL EXAM: Alert, very pleasant 57-year-old male, on RA , fairly comfortable in no apparent distress. HEAD: Normocephalic. EYES: Normal reaction of pupils, equal size. NOSE: Clear with pink turbinates. THROAT: No erythema or exudates. NECK: No masses, no JVD. CHEST: No chest wall deformity. LUNGS: Equal air entry with no crackles, wheeze, rhonchi or dullness. CVS: S1 and S2 normal with no audible murmur, regular rhythm. ABDOMEN: No hepatosplenomegaly, normal bowel sounds, no guarding or rigidity. SPINE: No scoliosis or deformity SKIN: No rashes CENTRAL NERVOUS SYSTEM: No focal deficits, tone is normal in all 4 extremities. EXTREMITIES: Right femoral Impella in place. There is no peripheral edema. No clubbing, no cyanosis. Peripheral pulses are intact. - Labs CBC & Chem 7: 05/25/23 04:41 05/25/23 04:41 Labs: Abnormal Lab Results - Last 24 Hours (Table) 05/25/23 05/25/23 Range/Units 04:41 04:41 RBC 3.45 L (4.30-5.90) m/uL Hgb 11.0 L (13.0-17.5) gm/dL Hct 32.3 L (39.0-53.0) % Plt Count 120 L (150-450) k/uL Sodium 136 L (137-145) mmol/L Chloride 111 H (98-107) mmol/L BUN 23 H (9-20) mg/dL Calcium 8.1 L (8.4-10.2) mg/dL Microbiology - Last 24 Hours (Table) 05/21/23 07:50 Blood Culture - Preliminary Blood Assessment and Plan Plan: Acute non-ST segment elevation myocardial infarction status post Impella placement, penumbra aspiration thrombectomy of the LAD, PCI of the left main into LAD stented, PTBA of the circumflex, stenting to the RCA. Postoperative day #3. 05/23/2023 and Impella removed. Cardiogenic shock requiring Impella placement and subsequent removal Severe ischemic cardiomyopathy with global hypokinesia and ejection fraction of 10 to 15% increased 25 to 30% while on the Impella Chronic and ongoing tobacco dependence Chronic obstructive pulmonary disease Hypertension Hyperlipidemia History of peripheral arterial disease History of subclavian artery stenosis/subclavian steal on the left History of abdominal aortic aneurysm measuring 5.5 Plan Overall respiratory status is stable and the patient is currently on room air oxygen Continue same cardiac medications Consider discharging him home with a LifeVest and this will be confirmed with cardiology Overall cardiac pulmonary status is stable We'll continue to follow. Likely will move out of the intensive care unit today.
--- NOTE | 2023-05-25 11:15 | PN ---
PROGRESS NOTE SUBJECTIVE: Mr. Monica Franco is a 57-year-old gentleman, who presented to the hospital with what seems to be a cardiogenic shock and underwent a very complex PCI of multiple vessels and this was performed on Thursday. He had Impella protected PCI of left main into LAD and also underwent PCI of RCA with overlapping stents and angioplasty of the circumflex. All of the Impella has been removed yesterday. He is actually doing well. Today, his blood pressure runs somewhat low, but some of it is because of subclavian stenosis as well. However, he is sitting up comfortably, feels well. No chest pain and remains hemodynamically stable. His beta-blockers have been just started by Dr. Urbano. We will continue the same at this time. His blood pressure is about 96 systolic. OBJECTIVE: VITAL SIGNS: Vitals are stable. NECK: No JVD. HEART: S1 and S2 heard normally. LUNGS: Revealed decent air entry. ABDOMEN: Soft. LOWER EXTREMITIES: Reveal diminished pulses. PLAN: Plan is to continue metoprolol succinate 12.5 mg daily, Brilinta, aspirin, and atorvastatin. Based on clinical course, make further recommendations. Gradual increase in activity. Prognosis remains guarded. MMODL / IJN: [id number] /
--- NOTE | 2023-05-25 23:12 | PN ---
PROGRESS NOTE CHIEF COMPLAINT: Acute NM with cardiogenic shock. HISTORY OF PRESENT ILLNESS: This gentleman is doing well. He feels well. He is sitting up. Blood pressure is still low. He is not having any dizziness, lightheadedness, shortness of breath, chest pain, etc. PHYSICAL EXAMINATION: CHEST: Clear. CARDIAC: Unremarkable. ABDOMEN: Soft, nontender. IMPRESSION: 1. Acute anterior myocardial infarction with cardiogenic shock. 2. Hypotension. 3. Chronic obstructive pulmonary disease. 4. Hyperlipidemia. PLAN: Home when cleared by Cardiology. I requested echocardiogram before discharge to obtain a baseline ejection fraction. MMODL / IJN: [id number] /
--- NOTE | 2023-05-26 07:19 | CA ---
Transthoracic Echo Report Name: Monica Franco Age: 57 Gender: M : 1965 Exam Date: 05/25/2023 12:00 Exam Location: [facility] Ht (in): 71 Wt (lb): 182 Ordering Physician: Wetsley Barber MD Attending/Referring Phys: Elisabeth MILLER Family Services Coordinator Ryan Cardenas RD Procedure CPT: Indications: EF before discharge, if Card. agrees Cardiac Hx: Technical Quality: Fair Contrast 1: Definity Total Dose (mL): 2 Contrast 2: Total Dose (mL): MEASUREMENTS (Male / Female) Normal Values 2D ECHO LV Diastolic Volume MOD BP 107.8 cm??? 67 - 155 / 56 - 104 cm??? LV Systolic Volume MOD BP 77.2 cm??? 22 - 58 / 19 - 49 cm??? LV Ejection Fraction MOD BP 28.4 % >= 55 % LV Diastolic Volume MOD 4C 144.8 cm??? LV Systolic Volume MOD 4C 102.0 cm??? LV Ejection Fraction MOD 4C 29.5 % LV Diastolic Length 4C 8.5 cm LV Systolic Length 4C 8.7 cm LV Diastolic Volume MOD 2C 79.2 cm??? LV Systolic Volume MOD 2C 48.5 cm??? LV Ejection Fraction MOD 2C 38.8 % LV Diastolic Length 2C 8.2 cm LV Systolic Length 2C 7.1 cm FINDINGS Left Ventricle Left ventricular dilatation. Left ventricular ejection fraction is estimated at 10-15 %. Apical, anteroapical, anteroseptal, anterolateral and inferoapical akinesis. Right Ventricle Right Atrium Left Atrium Mitral Valve Aortic Valve Tricuspid Valve Pulmonic Valve Pericardium Aorta CONCLUSIONS Technically limited study. Definity ECHO contrast used for improved visualization of the endocardial borders (inadequate visualization of two or more contiguous segments). Severely impaired left ventricular systolic function with segmental wall motion abnormalities Previewed by: Dr. Bita Lucas MD (Electronically Signed) Final Date: 26 May 2023 07:18
[2023-05-26 10:35] VITALS: RESP 16
--- NOTE | 2023-05-26 10:37 | P.PN ---
Subjective Progress Note Date: 05/26/23 57-year-old female patient being seen in follow-up in the intensive care the patient is known to have CAD and she is post acute non-ST segment elevation myocardial infarction with underlying cardiomyopathy with an ejection fraction of 10 to 15%. The patient is post coronary intervention with insertion of Impella, penumbra aspiration thrombectomy of the LAD, PCI of the left main into LAD with stenting and PTCA of the circumflex and stenting of the RCA. The patient is postop day #4. The procedure was completed and the Impella was removed. The patient is also known to have multiple medical problems including COPD, hypertension, hyperlipidemia, abdominal aortic aneurysm measuring up to 4.5 cm in size in addition to a subclavian artery stenosis with subclavian steal on the left. The patient is currently on room air oxygen. Hemodynamically stable on no pressors. The patient is on a combination of aspirin and Brilinta. The patient is also on Toprol XL 12.5 mg p.o. daily and Farxiga 10 mg p.o. daily and high-dose statins with Lipitor 80 mg p.o. daily. No significant shortness of breath or chest pain. Most recent chest x-ray from yesterday showed improvement in left lower lobe pulmonary infiltrate without any other acute cardiopulmonary abnormalities. The patient is awake and alert and communicating. The patient is currently on room air oxygen. His blood pressure is stable. Is on no pressors. I reviewed the chest x-ray from yesterday shows no acute abnormalities. The white cycles at 7.9 with a hemoglobin of 11 and a platelet count of 120. BUN is at 23 with a creatinine of 0.9 and a sodium level is at 136. Medications remain unchanged. The patient is tolerating the beta blockers. He is also on a combination of aspirin and Brilinta. He is also on Farxiga. On today's evaluation of 05/26/2023, the patient is doing well. The patient is on room air oxygen. No chest pain. No cough or sputum production. No shortness of breath. No respiratory distress. No other cardiac arrhythmias noted. A limited echocardiogram was done yesterday the patient was found to have an impaired ejection fraction of 10 to 15%. As such, the patient is being considered for a LifeVest at the time of discharge. No other significant events otherwise.He is ambulating. The right second is at 7.9 with a hemoglobin of 11, BUN is at 23 with a creatinine of 0.9 and a sodium of 136 with a potassium level of 3.9. The patient remains on the same medication which includes metoprolol 12 .5 mg daily, aspirin and Brilinta and the patient is also on Farxiga. No diuretics for now. Objective - Vital Signs Vital signs: Vital Signs Temp 98.3 F 05/26/23 04:00 Pulse 77 05/26/23 04:00 Resp 15 05/26/23 04:00 BP 82/59 05/26/23 04:00 Pulse Ox 95 05/26/23 04:00 FiO2 50 05/21/23 17:00 Intake & Output 05/25/23 05/26/23 05/26/23 18:59 06:59 18:59 Intake Total 540 Output Total 850 2540 Balance -850 -2000 Weight 80.6 kg Intake: Oral 540 Output: Urine 850 2540 Other: Voiding Method Toilet Toilet # Voids 1 ABP, PAP, CO, CI - Last Documented Arterial Blood Pressure 87/51 - Exam GENERAL EXAM: Alert, very pleasant 57-year-old male, on RA , fairly comfortable in no apparent distress. HEAD: Normocephalic. EYES: Normal reaction of pupils, equal size. NOSE: Clear with pink turbinates. THROAT: No erythema or exudates. NECK: No masses, no JVD. CHEST: No chest wall deformity. LUNGS: Equal air entry with no crackles, wheeze, rhonchi or dullness. CVS: S1 and S2 normal with no audible murmur, regular rhythm. ABDOMEN: No hepatosplenomegaly, normal bowel sounds, no guarding or rigidity. SPINE: No scoliosis or deformity SKIN: No rashes CENTRAL NERVOUS SYSTEM: No focal deficits, tone is normal in all 4 extremities. EXTREMITIES: Right femoral Impella in place. There is no peripheral edema. No clubbing, no cyanosis. Peripheral pulses are intact. - Labs CBC & Chem 7: 05/25/23 04:41 05/25/23 04:41 Assessment and Plan Plan: Acute non-ST segment elevation myocardial infarction status post Impella placement, penumbra aspiration thrombectomy of the LAD, PCI of the left main into LAD stented, PTBA of the circumflex, stenting to the RCA. Postoperative day # 4. 05/23/2023 and Impella removed. The patient is free of any chest pain and the patient is hemodynamically stable Cardiogenic shock requiring Impella placement and subsequent removal Severe ischemic cardiomyopathy with global hypokinesia and ejection fraction of 10 to 15% increased 25 to 30% while on the Impella, limited echocardiogram was done and the patient was found to have an ejection fraction of 10 to 15% and this is based on echo that was done on 05/25/2023. Chronic and ongoing tobacco dependence Chronic obstructive pulmonary disease Hypertension Hyperlipidemia History of peripheral arterial disease History of subclavian artery stenosis/subclavian steal on the left History of abdominal aortic aneurysm measuring 5.5 Plan Overall respiratory status is stable and the patient is currently on room air oxygen Continue same cardiac medications The patient will need a LifeVest and this will be confirmed with cardiology Overall cardiac pulmonary status is stable We'll continue to follow. Likely will move out of the intensive care unit today.
[2023-05-26 11:06] VITALS: BMI 24.7
--- NOTE | 2023-05-26 12:33 | PN ---
PROGRESS NOTE SUBJECTIVE: Mr. Franco is a gentleman who has a combination of ischemic and probably nonischemic cardiomyopathy as well. His ejection fraction is about 15% based on the echo from yesterday, which was a limited study. He had an Impella supported multivessel PCI performed and he has recovered well since then. Unfortunately, ejection fraction remains low. He is feeling well, ambulating without symptoms. On May 21, he had an Impella supported PCI of left main into LAD and also angioplasty of circumflex and stenting of RCA. His ejection fraction remains low. Functional capacity is good. He is tolerating his current medical regimen. He also has vascular disease in the subclavians. Blood pressure is about 90 systolic. PLAN: To place a LifeVest and discharge him on medical therapy and see Dr. Urbano in 1 week. Discharge instructions regarding activity, diet, and medications were given. He will have a LifeVest, I will place a request for this and if this is available in time, he can be discharged. He is currently on Brilinta, aspirin, metoprolol succinate, and atorvastatin and he will continue all of these medications. Prognosis remains poor, patient is fully aware of it. I spoke to Dr. Barber as well today. There is no family available. Prognosis remains guarded. MMODL / IJN: [id number] /
--- NOTE | 2023-05-26 15:52 | CDI ---
Documentation Clarification Form Date: From: Anita Carnes Phone: [phone] Admit Date: 05/21/2023 08:57:00 AM Patient Name: Monica Franco Visit Number: [id number] Discharge Date: ATTENTION: The Clinical Documentation Specialists (CDI) and [facility] Coding Staff appreciate your assistance in clarifying documentation. Please respond to the clarification below the line at the bottom and electronically sign. The CDI & [facility] Coding staff will review the response and follow-up if needed. Please note: Queries are made part of the Legal Health Record. If you have any questions, please contact the author of this message via ITS. Dr. Westley Barber Your patient has oxygen use noted in the flow sheet. Based on this information and the findings below, is there an additional diagnosis that is clinically appropriate for this patient? History/Risk Factors: "57-year-old male has past medical history of COPD and heart conditions. Patient states he became short of breath at approximately 3 PM. Patient was brought in from home by EMS" - Per ED Note on 05/21 Tobacco use: "Current every day smoker" - Per ED Note on 05/21 Home oxygen: none Clinical Indicators: "Chest: Mild retractions, mild tachypnea, diffuse crackles" - Per ED Note on 05/21 "found to have a non-ST segment acute myocardial infarction and acute exacerbation of suspected systolic congestive heart failure" "echocardiogram continued to show significant global hypokinesia with an ejection fraction of 10 to 15%" - Per Pulmonology note on 05/22 Vital signs: 05/21 07:43- RR 32, O2 95% on BiPAP 05/21 08:38 - RR 28, O2 92% on 15L Non-Rebreather 05/21 14:15 - RR 25, 02 96% on BiPAP Treatment: "Impella placement, penumbra aspiration thrombectomy of the LAD, PCI of the left main into LAD stented, PTBA of the circumflex, stenting to the RCA." "stable and on 2 L nasal cannula" - Per Pulmonology note on 05/22 Is there an additional diagnosis that is clinically appropriate for this patient? [ ] Acute Hypoxic Respiratory Failure [ ] Acute Respiratory Distress [ ] Acute Respiratory Insufficiency [ ] Other Diagnosis, please specify [ ] Unable to determine MTDD
[2023-05-26 17:49] VITALS: BP 99/70; PULSE 84; TEMP 98.1
--- NOTE | 2023-05-26 22:39 | DS ---
DISCHARGE SUMMARY CHIEF COMPLAINT: Shortness of breath. HISTORY OF PRESENT ILLNESS AND PHYSICAL EXAMINATION: Details of this man's history and physical can be found in the initial workup. LABORATORY STUDIES: While he was in the hospital, he had laboratory studies, details of which can be found in the laboratory section of his chart. COURSE IN THE HOSPITAL: After admission, he was placed on bedrest, started on intravenous fluids in ICU and then treated for cardiogenic shock and pulmonary edema. He was then taken to the [facility], where he underwent 3 stents. He then went to the intensive care unit, where he was monitored over several days. He initially required Impella to support his blood pressure. This was eventually removed. He went back to the [facility] for right coronary artery catheterization and stenting. Postoperatively, he did well, but his blood pressure remained low in the range of 90 mmHg systolically. He did not have any further chest pain, shortness of breath, or arrhythmias. He had an echocardiogram before discharge with an EF of 10% to 15%. He will be going home with a LifeVest and will follow up in my office in a week and will be seen by Cardiology post hospitalization. He will also go into a cardiac rehab program. FINAL DIAGNOSES: 1. Acute ST elevation myocardial infarction. 2. Triple-vessel coronary artery disease. 3. Cardiogenic shock and pulmonary edema. 4. Atherosclerotic cardiovascular disease. 5. Chronic obstructive pulmonary disease. 6. Left subclavian steal. 7. Abdominal aortic aneurysm. He is improved. MMODL / IJN: [id number] /
--- NOTE | 2023-05-27 10:48 | CDI ---
Documentation Clarification Form Date: 05/27/2023 10:32:21 AM From: Laura Mcdermott Phone: Admit Date: 05/21/2023 08:57:00 AM Patient Name: Monica Franco Visit Number: [id number] Discharge Date: 05/26/2023 05:33:00 PM ATTENTION: The Clinical Documentation Specialists (CDI) and [facility] Coding Staff appreciate your assistance in clarifying documentation. Please respond to the clarification below the line at the bottom and electronically sign. The CDI & [facility] Coding staff will review the response and follow-up if needed. Please note: Queries are made part of the Legal Health Record. If you have any questions, please contact the author of this message via ITS. Dr. Westley Barber Unspecified CKD is documented per Cardiology Consult 05/21 and Progress Notes. Additional clarification regarding the stage of CKD is requested. History/Risk Factors: 57yo M, STEMI, ACSHF, HTN, Lt Subclavian steal, PAD, CAD, LBBB, AAA, CKD, Cardiogenic shock, NICM w ICM, HLD, COPD, smoker Clinical Indicators: BUN: 2/ 25 2/2 - 2/4 33- 40 2/5- 26 23 CR: 2/ 1.35 2/2 1.09- 1.14 2/3 0.93 2/4 0.87 AAGFR: 2/ 81 2/2- 2/5 82- >90 NAAGFR: 2 70 2/2 71-78 2/ 90 05/24-05/25 >90 Treatment: monitored Please clarify the stage of the CKD, if known: [ ] CKD Stage 1 [ ] CKD Stage 2 [ ] Acute Kidney Failure [ ] Other, please specify [ ] Unable to determine Reference: National Kidney Foundation Stage 1 eGFR = 90 and kidney damage for =3 months Stage 2 eGFR 60-89 and kidney damage for =3 months Stage 3a eGFR 45-59 and kidney damage for =3 months Stage 3b eGFR 30-44 and kidney damage for =3 months Stage 4 eGFR 15-29 r and kidney damage for =3 months Stage 5 eGFR <15 and kidney damage for =3 months (Template last revised: April 2023) MTDD
[2023-05-28 19:38] LABS: LD Isoenzymes 1 35 % (18-32); LD Isoenzymes 2 39 % (29-42); LD Isoenzymes 3 17 % (14-30); LD Isoenzymes 4 5 % (6-13); LD Isoenzymes 5 4 % (5-18); Lactacte Dehydrogenase(LD) ISO 1040 U/L (120-250)
--- NOTE | 2023-06-03 00:40 | MISC ---
MISCELLANOUS REPORT Acute respiratory distress. No kidney damage. MMODL / IJN: [id number] /
== END 2023-05-26 17:33 | disposition home or self-care (01) | DRG 215 ==
LOC: EC 07:33 → 1SOBS 08:57 → 2SICU 12:20
PROVIDERS: ADMIT Family Medicine; ATTEND Family Medicine
PROC: 5A09357 Assistance with Respiratory Ventilation, Less than 24 Consecutive Hours, Continuous Positive Airway Pressure (ICD-10-PCS; 2023-05-21)
PROC: 02HA3RZ Insertion of Short-term External Heart Assist System into Heart, Percutaneous Approach (ICD-10-PCS; principal; 2023-05-22)
PROC: 5A0221D Assistance with Cardiac Output using Impeller Pump, Continuous (ICD-10-PCS; 2023-05-22)
PROC: 02703ZZ Dilation of Coronary Artery, One Artery, Percutaneous Approach (ICD-10-PCS; 2023-05-22)
PROC: 02C03ZZ Extirpation of Matter from Coronary Artery, One Artery, Percutaneous Approach (ICD-10-PCS; 2023-05-22)
PROC: 027136Z Dilation of Coronary Artery, Two Arteries with Three Drug-eluting Intraluminal Devices, Percutaneous Approach (ICD-10-PCS; 2023-05-22)
PROC: 02F03ZZ Fragmentation in Coronary Artery, One Artery, Percutaneous Approach (ICD-10-PCS; 2023-05-22)
PROC: 4A023N7 Measurement of Cardiac Sampling and Pressure, Left Heart, Percutaneous Approach (ICD-10-PCS; 2023-05-22)
PROC: B2111ZZ Fluoroscopy of Multiple Coronary Arteries using Low Osmolar Contrast (ICD-10-PCS; 2023-05-22)
PROC: B240ZZ3 Ultrasonography of Single Coronary Artery, Intravascular (ICD-10-PCS; 2023-05-22)
PROC: 3E033XZ Introduction of Vasopressor into Peripheral Vein, Percutaneous Approach (ICD-10-PCS; 2023-05-23)
PROC: 02PA3RZ Removal of Short-term External Heart Assist System from Heart, Percutaneous Approach (ICD-10-PCS; 2023-05-24)
PROC: 4A023N6 Measurement of Cardiac Sampling and Pressure, Right Heart, Percutaneous Approach (ICD-10-PCS; 2023-05-24)
PROC: B2141ZZ Fluoroscopy of Right Heart using Low Osmolar Contrast (ICD-10-PCS; 2023-05-24)
DX: I21.09 ST elevation (STEMI) myocardial infarction involving other coronary artery of anterior wall (principal); R57.0 Cardiogenic shock; I25.42 Coronary artery dissection; I50.23 Acute on chronic systolic (congestive) heart failure; I13.0 Hypertensive heart and chronic kidney disease with heart failure and stage 1 through stage 4 chronic kidney disease, or unspecified chronic kidney disease; I42.8 Other cardiomyopathies; G45.8 Other transient cerebral ischemic attacks and related syndromes; D69.6 Thrombocytopenia, unspecified; D63.1 Anemia in chronic kidney disease; I71.40 Abdominal aortic aneurysm, without rupture, unspecified; J44.9 Chronic obstructive pulmonary disease, unspecified; I73.9 Peripheral vascular disease, unspecified; I70.8 Atherosclerosis of other arteries; F17.210 Nicotine dependence, cigarettes, uncomplicated; E78.5 Hyperlipidemia, unspecified; I25.119 Atherosclerotic heart disease of native coronary artery with unspecified angina pectoris; I44.7 Left bundle-branch block, unspecified; R06.03 Acute respiratory distress; Z88.8 Allergy status to other drugs, medicaments and biological substances; Z79.82 Long term (current) use of aspirin; Z79.899 Other long term (current) drug therapy; Z82.49 Family history of ischemic heart disease and other diseases of the circulatory system; Z28.310 Unvaccinated for COVID-19
CPT/HCPCS: 33990; 36415; 71045; 76937; 80048; 80053; 80061; 82805; 83605; 83615; 83625; 83735; 83880; 84132; 84484; 85025; 85027; 85384; 85610; 85730; 86022; 87040; 92972; 92973; 92978; 93005; 93306; 93308; 93451; 93458; 94660; 94760; 96374; 96375; 99291

== ENCOUNTER → 2023-06-18 | Outpatient (CLI) | payer OTHER ==
--- NOTE | 2023-06-18 17:45 | CA ---
Transthoracic Echo Report Name: Monica Franco Age: 57 Gender: M : 1965 Exam Date: 06/18/2023 15:00 Exam Location: [place] [facility] Ht (in): 70 Wt (lb): 170 Ordering Physician: Miguel Urbano DO ([email or web address]) Attending/Referring Phys: Mahogany Armstrong [facility] Residential Life Director Procedure CPT: Indications: I50.22 CHRON SYS HEART FAIL I25.5 ISCHEM CARDIOMYO Cardiac Hx: Hx of VA, STENTS, SMOKER Technical Quality: Good Contrast 1: Definity Total Dose (mL): 2 Contrast 2: Total Dose (mL): MEASUREMENTS (Male / Female) Normal Values 2D ECHO RV Internal Dim ED PLAX 4.2 cm LV Diastolic Volume MOD BP 180.9 cm??? 67 - 155 / 56 - 104 cm??? LV Systolic Volume MOD BP 134.1 cm??? 22 - 58 / 19 - 49 cm??? LV Ejection Fraction MOD BP 25.9 % >= 55 % LV Cardiac Index MOD BP 1841.7 cm???/min???m??? LV Diastolic Volume MOD 4C 228.8 cm??? LV Systolic Volume MOD 4C 168.0 cm??? LV Ejection Fraction MOD 4C 26.6 % LV Cardiac Index MOD 4C 2390.9 cm???/min???m??? LV Diastolic Length 4C 10.0 cm LV Systolic Length 4C 9.6 cm LV Diastolic Volume MOD 2C 182.6 cm??? LV Systolic Volume MOD 2C 117.9 cm??? LV Ejection Fraction MOD 2C 35.4 % LV Cardiac Index MOD 2C 2545.1 cm???/min???m??? LV Diastolic Length 2C 9.7 cm LV Systolic Length 2C 8.8 cm DOPPLER TR Peak Velocity 290.6 cm/s TR Peak Gradient 33.8 mmHg Right Ventricular Systolic Press 38.8 mmHg FINDINGS Left Ventricle Left ventricular ejection fraction is estimated at 20-25 %. Moderately increased left ventricular diastolic volume. Severely increased left ventricular systolic volume. Severely decreased left ventricular ejection fraction. Apical anterior ,celsa septal and iferoseptal akinesis Right Ventricle Mild pulmonary hypertension. Right ventricular systolic pressure estimated at 39 mm hg. Right Atrium Left Atrium Mitral Valve Structurally normal mitral valve. Trace to mild mitral regurgitation. Aortic Valve Trileaflet aortic valve. No aortic valve stenosis or regurgitation. Tricuspid Valve Structurally normal tricuspid valve. Mild tricuspid regurgitation. Pulmonic Valve Structurally normal pulmonic valve. No pulmonic regurgitation. Pericardium No pericardial effusion. Aorta CONCLUSIONS Severe LV systolic dysfunction Mild pulmonary hypertension Previewed by: Dr. Gil Ram MD (Electronically Signed) Final Date: 18 June 2023 17:44
== END | disposition home or self-care (01) ==
LOC: RADECHMAIN 14:50
PROVIDERS: ATTEND Internal Medicine
DX: I27.20 Pulmonary hypertension, unspecified (principal); I50.22 Chronic systolic (congestive) heart failure; I51.89 Other ill-defined heart diseases; I25.5 Ischemic cardiomyopathy
CPT/HCPCS: 93308; Q9957

== ENCOUNTER 2023-06-22 16:04 | Inpatient (IN) | payer OTHER ==
--- NOTE | 2023-06-22 16:27 | ED ---
Altered Mental Status HPI - General Chief Complaint: Altered Mental Status Stated Complaint: Unresponsive Source: patient Mode of arrival: EMS Limitations: no limitations, altered mental status - History of Present Illness Initial Comments: 57-year-old male with recent hospitalization and found to have triple-vessel disease with significant ischemic cardiomyopathy who presents emergency department with altered mental status. Patient was hospitalized at beginning of May. He had 3 stents placed. Patient was in cardiogenic shock and required an Impella. Echo was performed which demonstrated an EF of 10 to 15%. Patient went home with a LifeVest. Today a family friend was with the patient at home. He called the patient's to say that he was acting odd. The told him to call EMS. When he went back into the room the patient was unresponsive. Patient was found to be ashen parmar and hypotensive for EMS. Brought into the emergency department and does have some agitation but slowly starts to become oriented. Patient had bit his tongue as there is blood in his mouth. Patient does have blue dye on his LifeVest. Patient is denying any chest pain at this time. He does require 6 L of oxygen to hold a pulse ox of 94%. HPI is limited because of patient's current state - Related Data Home Medications Medication Instructions Recorded Confirmed Adhs 2 tab PO BID 05/21/23 06/22/23 Aspirin EC [Ecotrin Low Dose] 81 mg PO DAILY 05/21/23 06/22/23 Bio-3b-G 4 tab PO BID 05/21/23 06/22/23 Bio-C-Plus 1 - 3 tab PO DAILY 05/21/23 06/22/23 De-Stress 1 tab PO DAILY 05/21/23 06/22/23 Purified Chondroitin Sulfates 1 - 3 tab PO DAILY 05/21/23 06/22/23 Super Beets Chew 2 tab PO HS 05/21/23 06/22/23 Ht Combination Drops 2 ml PO HS 06/22/23 06/22/23 Nitroglycerin Sl Tabs [Nitrostat] 0.4 mg SL Q5M PRN 06/22/23 06/22/23 Previous Rx's Medication Instructions Recorded Atorvastatin [Lipitor] 80 mg PO DAILY 90 Days #90 tab 05/25/23 Dapagliflozin Propanediol [Farxiga] 10 mg PO DAILY 90 Days #90 tab 05/25/23 Ticagrelor [Brilinta] 90 mg PO BID 60 Days #180 tab 05/25/23 Amiodarone [Cordarone] 400 mg PO BID tab 06/24/23 Folic Acid 1 mg PO DAILY@1200 tab 06/24/23 Metoprolol Tartrate [Lopressor] 12.5 mg PO BID tab 06/24/23 Multivitamins, Thera [Multivitamin 1 each PO DAILY@1200 tab 06/24/23 (formulary)] Thiamine [Vitamin B-1] 100 mg PO DAILY@1200 tab 06/24/23 Allergies Allergy/AdvReac Type Severity Reaction Status Date / Time [id number] Reductase AdvReac Unknown Verified 06/22/23 18:59 Inhibitor Review of Systems ROS Statement: Those systems with pertinent positive or pertinent negative responses have been documented in the HPI. ROS Other: All systems not noted in ROS Statement are negative. 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 Absent: tenderness, meningismus, lymphadenopathy Respiratory exam: Present: decreased breath sounds Cardiovascular Exam: Present: regular rate, tachycardia GI/Abdominal exam: Present: soft, normal bowel sounds. Absent: distended, tenderness, guarding, rebound, rigid Neurological exam: Present: altered Course Vital Signs 06/22/23 06/22/23 06/22/23 16:16 16:25 16:26 Temperature 97 F L Pulse Rate 103 H 95 Respiratory 20 16 16 Rate Blood Pressure 84/50 72/58 O2 Sat by Pulse 87 L 92 L Oximetry 06/22/23 06/22/23 06/22/23 16:47 16:50 17:17 Temperature Pulse Rate 77 77 84 Respiratory 20 16 16 Rate Blood Pressure 106/77 106/77 75/52 O2 Sat by Pulse 97 98 95 Oximetry 06/22/23 06/22/23 06/22/23 17:49 20:00 21:00 Temperature Pulse Rate 72 84 80 Respiratory 16 16 18 Rate Blood Pressure 85/52 80/63 81/56 O2 Sat by Pulse 96 95 97 Oximetry 06/22/23 06/22/23 06/22/23 21:30 22:00 22:30 Temperature Pulse Rate 82 87 79 Respiratory 18 18 18 Rate Blood Pressure 81/56 63/53 86/72 O2 Sat by Pulse 97 97 96 Oximetry 06/22/23 06/23/23 06/23/23 23:00 00:00 01:10 Temperature Pulse Rate 80 70 70 Respiratory 18 18 18 Rate Blood Pressure 69/47 97/63 60/48 O2 Sat by Pulse 95 95 97 Oximetry 06/23/23 06/23/23 06/23/23 01:15 01:45 02:15 Temperature Pulse Rate 75 76 70 Respiratory 18 18 18 Rate Blood Pressure 66/43 96/69 73/50 O2 Sat by Pulse 97 97 97 Oximetry 06/23/23 06/23/23 06/23/23 02:30 02:45 03:00 Temperature Pulse Rate 70 66 80 Respiratory 18 18 18 Rate Blood Pressure 73/50 73/54 63/44 O2 Sat by Pulse 95 95 96 Oximetry 06/23/23 06/23/23 06/23/23 03:15 03:30 03:45 Temperature Pulse Rate 78 82 79 Respiratory 18 18 18 Rate Blood Pressure 87/74 83/56 104/81 O2 Sat by Pulse 97 96 96 Oximetry 06/23/23 06/23/23 06/23/23 04:00 04:15 05:15 Temperature Pulse Rate 76 68 82 Respiratory 18 18 18 Rate Blood Pressure 87/65 89/58 117/79 O2 Sat by Pulse 97 95 95 Oximetry 06/23/23 06/23/23 06/23/23 06:30 07:00 07:15 Temperature Pulse Rate 84 71 67 Respiratory 18 16 18 Rate Blood Pressure 106/72 115/67 111/64 O2 Sat by Pulse 95 95 95 Oximetry 06/23/23 06/23/23 06/23/23 07:30 07:45 08:00 Temperature Pulse Rate 71 80 93 Respiratory 16 16 16 Rate Blood Pressure 103/67 99/66 92/65 O2 Sat by Pulse 95 95 96 Oximetry 06/23/23 06/23/23 06/23/23 08:15 08:30 08:35 Temperature Pulse Rate 74 88 86 Respiratory 16 18 18 Rate Blood Pressure 106/69 102/71 105/71 O2 Sat by Pulse 95 96 95 Oximetry 06/23/23 06/23/23 06/23/23 08:45 09:00 09:15 Temperature Pulse Rate 85 80 76 Respiratory 18 17 16 Rate Blood Pressure 105/71 106/71 104/69 O2 Sat by Pulse 95 94 L 94 L Oximetry 06/23/23 06/23/23 06/23/23 09:30 09:45 10:00 Temperature Pulse Rate 77 76 74 Respiratory 16 15 18 Rate Blood Pressure 80/69 109/68 108/69 O2 Sat by Pulse 94 L 94 L 95 Oximetry 06/23/23 06/23/23 06/23/23 10:15 10:30 10:45 Temperature Pulse Rate 73 78 80 Respiratory 17 16 18 Rate Blood Pressure 117/63 113/64 112/63 O2 Sat by Pulse 96 95 95 Oximetry 06/23/23 06/23/23 06/23/23 11:00 11:15 11:30 Temperature Pulse Rate 82 79 87 Respiratory 18 18 16 Rate Blood Pressure 105/64 105/64 104/71 O2 Sat by Pulse 94 L 94 L 95 Oximetry 06/23/23 06/23/23 06/23/23 11:45 12:00 12:15 Temperature Pulse Rate 80 80 85 Respiratory 16 18 16 Rate Blood Pressure 114/71 88/64 88/64 O2 Sat by Pulse 94 L 94 L 94 L Oximetry 06/23/23 06/23/23 06/23/23 12:30 12:45 13:00 Temperature Pulse Rate 78 96 85 Respiratory 18 16 18 Rate Blood Pressure 100/66 90/55 106/81 O2 Sat by Pulse 94 L 95 96 Oximetry 06/23/23 06/23/23 06/23/23 13:15 13:30 13:45 Temperature Pulse Rate 80 90 85 Respiratory 19 16 18 Rate Blood Pressure 106/81 85/60 82/69 O2 Sat by Pulse 93 L 92 L 94 L Oximetry 06/23/23 06/23/23 06/23/23 14:00 14:15 14:30 Temperature Pulse Rate 75 79 77 Respiratory 18 19 16 Rate Blood Pressure 99/67 99/67 101/68 O2 Sat by Pulse 96 93 L 95 Oximetry 06/23/23 06/23/23 06/23/23 14:45 15:00 15:15 Temperature Pulse Rate 75 74 77 Respiratory 16 18 18 Rate Blood Pressure 110/68 98/71 109/69 O2 Sat by Pulse 92 L 93 L 93 L Oximetry 06/23/23 06/23/23 06/23/23 15:30 15:45 16:00 Temperature Pulse Rate 74 75 80 Respiratory 18 16 18 Rate Blood Pressure 100/70 92/59 103/66 O2 Sat by Pulse 93 L 94 L 93 L Oximetry 06/23/23 06/23/23 06/23/23 16:15 16:30 16:45 Temperature Pulse Rate 69 76 71 Respiratory 17 16 18 Rate Blood Pressure 106/78 101/67 111/77 O2 Sat by Pulse 93 L 94 L 93 L Oximetry 06/23/23 06/23/23 06/23/23 17:00 17:15 17:30 Temperature Pulse Rate 78 82 80 Respiratory 18 16 16 Rate Blood Pressure 115/70 120/73 115/82 O2 Sat by Pulse 95 94 L 93 L Oximetry 06/23/23 06/23/23 06/23/23 17:45 18:00 18:01 Temperature 99.0 F Pulse Rate 92 78 82 Respiratory 18 18 18 Rate Blood Pressure 127/80 124/90 124/90 O2 Sat by Pulse 94 L 93 L 93 L Oximetry 06/23/23 06/23/23 06/23/23 18:15 18:30 20:00 Temperature Pulse Rate 80 81 76 Respiratory 16 18 18 Rate Blood Pressure 110/79 132/80 101/73 O2 Sat by Pulse 93 L 94 L 95 Oximetry 06/23/23 06/23/23 06/23/23 21:00 22:00 23:00 Temperature Pulse Rate 71 64 63 Respiratory 18 18 17 Rate Blood Pressure 99/72 103/82 128/83 O2 Sat by Pulse 95 96 93 L Oximetry 06/24/23 06/24/23 06/24/23 00:00 01:00 01:30 Temperature Pulse Rate 64 68 68 Respiratory 18 9 L 18 Rate Blood Pressure 139/86 142/119 123/83 O2 Sat by Pulse 94 L 95 96 Oximetry 06/24/23 06/24/23 06/24/23 01:45 02:00 02:15 Temperature Pulse Rate 68 62 75 Respiratory 18 16 16 Rate Blood Pressure 123/83 102/79 95/63 O2 Sat by Pulse 95 94 L 92 L Oximetry 06/24/23 06/24/23 06/24/23 02:30 02:45 03:00 Temperature Pulse Rate 64 69 65 Respiratory 15 18 18 Rate Blood Pressure 98/61 112/79 115/86 O2 Sat by Pulse 93 L 96 96 Oximetry 06/24/23 06/24/23 06/24/23 03:15 03:30 03:45 Temperature Pulse Rate 68 71 63 Respiratory 18 18 18 Rate Blood Pressure 98/78 94/60 90/65 O2 Sat by Pulse 95 95 95 Oximetry 06/24/23 06/24/23 06/24/23 04:00 04:15 04:30 Temperature Pulse Rate 69 64 69 Respiratory 18 18 18 Rate Blood Pressure 96/59 105/76 90/79 O2 Sat by Pulse 94 L 93 L 95 Oximetry 06/24/23 06/24/23 06/24/23 04:45 05:00 05:30 Temperature Pulse Rate 68 75 67 Respiratory 18 18 18 Rate Blood Pressure 114/82 117/79 111/73 O2 Sat by Pulse 95 95 94 L Oximetry 06/24/23 06/24/23 06/24/23 05:45 06:00 06:15 Temperature Pulse Rate 66 70 69 Respiratory 18 18 18 Rate Blood Pressure 120/82 100/70 102/82 O2 Sat by Pulse 94 L 95 95 Oximetry 06/24/23 06/24/23 06/24/23 06:45 07:30 07:46 Temperature 98.6 F Pulse Rate 74 75 75 Respiratory 18 24 24 Rate Blood Pressure 109/76 96/75 107/77 O2 Sat by Pulse 95 94 L 94 L Oximetry 06/24/23 06/24/23 06/24/23 08:10 09:28 10:45 Temperature Pulse Rate 77 87 75 Respiratory 22 20 20 Rate Blood Pressure 116/79 95/73 99/79 O2 Sat by Pulse 95 94 L 94 L Oximetry 06/24/23 06/24/23 12:22 14:25 Temperature Pulse Rate 71 78 Respiratory 16 18 Rate Blood Pressure 104/77 112/83 O2 Sat by Pulse 94 L Oximetry - Reevaluation(s) Reevaluation #1: I spoke with Dr. Feliciano and Dr. Cortez in regard to the management of the patient. Recommend amiodarone 400 twice a day. If patient requires pressor, Levophed 06/22/23 19:58 Procedures - Central Line Placement Right IJ Consent Obtained: verbal consent, written consent Patient Placed on Monitor/Pulse Ox: Yes MD Prep: mask, gown, gloves Central Line Prep: Chlorhexidine scrub Local Anesthesia Used: Lidocaine 1% Amount of Anesthesia Used (mls): 5 Ultrasound Used for Placement: Yes Central Line Lumen Inserted: triple Bloods Obtained for Lab: No Central Line Position: good blood return, all ports aspirated, flushed, capped, sutured in place with nylon Dressing Applied: Tegaderm Post Procedure X-Ray: tip of catheter in good position Patient Tolerated Procedure: well, no complications Medical Decision Making - Medical Decision Making Was pt. sent in by a medical professional or institution (, PA, PEDIATRIC NEUROPSYCHOLOGIST, urgent care, hospital, or custodial...) When possible be specific @ -No Did you speak to anyone other than the patient for history (EMS, parent, family, police, friend...)? What history was obtained from this source @ -EMS Did you review nursing and triage notes (agree or disagree)? Why? @ -I reviewed and agree with nursing and triage notes Were old charts reviewed (outside hosp., previous admission, EMS record, old EKG, old radiological studies, urgent care reports/EKG's, custodial records)? Report findings @ -I reviewed patient's recent discharge summary where he was admitted and found to have significant cardiomyopathy Differential Diagnosis (chest pain, altered mental status, abdominal pain women, abdominal pain men, vaginal bleeding, weakness, fever, dyspnea, syncope, headache, dizziness, GI bleed, back pain, seizure, CVA, palpatations, mental health, musculoskeletal)? @ -Differential Altered Mental Status: Hypoglycemia, DKA, hypercapnia, ETOH, overdose, CO poisoning, trauma, myxedema coma, HTN encephalopathy, infection, encephalitis, psychosis, intercranial hemorrhage, hepatic encephalopathy, meningitis, CVA, this is not meant to be an all-inclusive list EKG interpreted by me (3pts min.). @ -Yes and demonstrates sinus tachycardia with a rate of 108. NC interval 185. QRS 100. QTc of 396. Left bundle branch block. No ST segment elevation X-rays interpreted by me (1pt min.). @ -Yes and demonstrates no acute process CT interpreted by me (1pt min.). @ -Yes and demonstrates pulmonary vascular congestion U/S interpreted by me (1pt. min.). @ -None done What testing was considered but not performed or refused? (CT, X-rays, U/S, labs)? Why? @ -None What meds were considered but not given or refused? Why? @ -None Did you discuss the management of the patient with other professionals (professionals i.e. , PA, PEDIATRIC NEUROPSYCHOLOGIST, lab, RT, psych nurse, director of social work, editor at large, teacher, police officer crime prevention, case work aide)? Give summary @ -Spoke with Dr. Pina for ICU admission. Spoke with Dr. Cortez who recommended amiodarone Was smoking cessation discussed for >3mins.? @ -No Was critical care preformed (if so, how long)? @ -Yes, 40 minutes. Patient received central line, vasopressors and ICU admission Were there social determinants of health that impacted care today? How? (Homelessness, low income, unemployed, alcoholism, drug addiction, transportation, low edu. Level, literacy, decrease access to med. care, group home, rehab)? @ -No Was there de-escalation of care discussed even if they declined (Discuss DNR or withdrawal of care, Hospice)? DNR status @ -Yes and patient remains full code What co-morbidities impacted this encounter? (DM, HTN, Smoking, COPD, CAD, Cancer, CVA, ARF, Chemo, Hep., AIDS, mental health diagnosis, sleep apnea, morbid obesity)? @ -Severe cardiomyopathy, coronary disease Was patient admitted / discharged? Hospital course, mention meds given and route, prescriptions, significant lab abnormalities, going to OR and other pertinent info. @ -Admitted. Upon arrival patient placed in room 2. Thorough history and physical exam was performed. Patient was sent for continuous pulse ox and cardiac monitoring. Twelve-lead EKG is obtained. We did interrogate the patient's vest which demonstrated that he went into V. tach. I spoke with Dr. Cortez. He would like the patient placed on amiodarone. Patient continues to have low blood pressures. Dr. Cortez recommended Levophed. I did call and speak with Dr. Pina. He recommended central line placement and agreed to ICU adm ission. Central line is placed. Patient taken to the floor in stable condition Undiagnosed new problem with uncertain prognosis? @ -Yes Drug Therapy requiring intensive monitoring for toxicity (Heparin, Nitro, Insulin, Cardizem)? @ -Levophed Were any procedures done? @ -Central line placement Diagnosis/symptom? @ -Acute encephalopathy, acute defibrillator discharge, V. tach, hypotension secondary to cardiogenic shock, history of significant ischemic cardiomyopathy Acute, or Chronic, or Acute on Chronic? @ -Acute Uncomplicated (without systemic symptoms) or Complicated (systemic symptoms)? @ -Complicated Side effects of treatment? @ -No Exacerbation, Progression, or Severe Exacerbation? @ -No Poses a threat to life or bodily function? How? (Chest pain, [place], [place], pneumonia, PE, COPD, DKA, ARF, appy, cholecystitis, CVA, Diverticulitis, Homicidal, Suicidal, threat to staff... and all critical care pts) @ -Yes suspected that patient went into pulseless V. tach - Lab Data Result diagrams: 06/24/23 03:58 06/24/23 03:58 Lab Results 06/22/23 06/22/23 06/22/23 Range/Units 16:26 16:26 16:26 WBC 14.8 H (3.8-10.6) k/uL RBC 4.57 (4.30-5.90) m/uL Hgb 14.1 D (13.0-17.5) gm/dL Hct 44.7 (39.0-53.0) % MCV 97.8 (80.0-100.0) fL MCH 30.7 (25.0-35.0) pg MCHC 31.4 (31.0-37.0) g/dL RDW 13.1 (11.5-15.5) % Plt Count 225 (150-450) k/uL MPV 7.9 Neutrophils % 85 % Lymphocytes % 8 % Monocytes % 3 % Eosinophils % 2 % Basophils % 1 % Neutrophils # 12.6 H (1.3-7.7) k/uL Lymphocytes # 1.2 (1.0-4.8) k/uL Monocytes # 0.5 (0-1.0) k/uL Eosinophils # 0.4 (0-0.7) k/uL Basophils # 0.1 (0-0.2) k/uL PT 10.3 (10.0-12.5) sec INR 0.9 (<1.2) APTT 22.8 (22.0-30.0) sec D-Dimer 6.42 H (<0.60) mg/L FEU Sodium 138 (137-145) mmol/L Potassium 4.5 (3.5-5.1) mmol/L Chloride 103 (98-107) mmol/L Carbon Dioxide 15 L (22-30) mmol/L Anion Gap 20 mmol/L BUN 18 (9-20) mg/dL Creatinine 1.08 (0.66-1.25) mg/dL Est GFR (CKD-EPI)AfAm 86 (>60 ml/min/1.73 sqM) Est GFR (CKD-EPI)NonAf 75 (>60 ml/min/1.73 sqM) Glucose 197 H (74-99) mg/dL Lactic Ac Sepsis Rflx Plasma Lactic Acid Osiel (0.7-2.0) mmol/L Calcium 9.4 (8.4-10.2) mg/dL Total Bilirubin 0.6 (0.2-1.3) mg/dL AST 42 (17-59) U/L ALT 29 (4-49) U/L Alkaline Phosphatase 65 (38-126) U/L Creatine Kinase 178 H (55-170) U/L Troponin I (0.000-0.034) ng/mL NT-Pro-B Natriuret Pep pg/mL Total Protein 6.9 (6.3-8.2) g/dL Albumin 4.5 (3.5-5.0) g/dL Serum Alcohol <10 mg/dL 06/22/23 06/22/23 06/22/23 Range/Units 16:26 16:26 16:26 WBC (3.8-10.6) k/uL RBC (4.30-5.90) m/uL Hgb (13.0-17.5) gm/dL Hct (39.0-53.0) % MCV (80.0-100.0) fL MCH (25.0-35.0) pg MCHC (31.0-37.0) g/dL RDW (11.5-15.5) % Plt Count (150-450) k/uL MPV Neutrophils % % Lymphocytes % % Monocytes % % Eosinophils % % Basophils % % Neutrophils # (1.3-7.7) k/uL Lymphocytes # (1.0-4.8) k/uL Monocytes # (0-1.0) k/uL Eosinophils # (0-0.7) k/uL Basophils # (0-0.2) k/uL PT (10.0-12.5) sec INR (<1.2) APTT (22.0-30.0) sec D-Dimer (<0.60) mg/L FEU Sodium (137-145) mmol/L Potassium (3.5-5.1) mmol/L Chloride (98-107) mmol/L Carbon Dioxide (22-30) mmol/L Anion Gap mmol/L BUN (9-20) mg/dL Creatinine (0.66-1.25) mg/dL Est GFR (CKD-EPI)AfAm (>60 ml/min/1.73 sqM) Est GFR (CKD-EPI)NonAf (>60 ml/min/1.73 sqM) Glucose (74-99) mg/dL Lactic Ac Sepsis Rflx Plasma Lactic Acid Osiel 10.7 H* (0.7-2.0) mmol/L Calcium (8.4-10.2) mg/dL Total Bilirubin (0.2-1.3) mg/dL AST (17-59) U/L ALT (4-49) U/L Alkaline Phosphatase (38-126) U/L Creatine Kinase (55-170) U/L Troponin I 0.067 H* (0.000-0.034) ng/mL NT-Pro-B Natriuret Pep 7120 pg/mL Total Protein (6.3-8.2) g/dL Albumin (3.5-5.0) g/dL Serum Alcohol mg/dL 06/22/23 06/22/23 Range/Units 17:10 19:29 WBC (3.8-10.6) k/uL RBC (4.30-5.90) m/uL Hgb (13.0-17.5) gm/dL Hct (39.0-53.0) % MCV (80.0-100.0) fL MCH (25.0-35.0) pg MCHC (31.0-37.0) g/dL RDW (11.5-15.5) % Plt Count (150-450) k/uL MPV Neutrophils % % Lymphocytes % % Monocytes % % Eosinophils % % Basophils % % Neutrophils # (1.3-7.7) k/uL Lymphocytes # (1.0-4.8) k/uL Monocytes # (0-1.0) k/uL Eosinophils # (0-0.7) k/uL Basophils # (0-0.2) k/uL PT (10.0-12.5) sec INR (<1.2) APTT (22.0-30.0) sec D-Dimer (<0.60) mg/L FEU Sodium (137-145) mmol/L Potassium (3.5-5.1) mmol/L Chloride (98-107) mmol/L Carbon Dioxide (22-30) mmol/L Anion Gap mmol/L BUN (9-20) mg/dL Creatinine (0.66-1.25) mg/dL Est GFR (CKD-EPI)AfAm (>60 ml/min/1.73 sqM) Est GFR (CKD-EPI)NonAf (>60 ml/min/1.73 sqM) Glucose (74-99) mg/dL Lactic Ac Sepsis Rflx Y Plasma Lactic Acid Osiel 0.8 (0.7-2.0) mmol/L Calcium (8.4-10.2) mg/dL Total Bilirubin (0.2-1.3) mg/dL AST (17-59) U/L ALT (4-49) U/L Alkaline Phosphatase (38-126) U/L Creatine Kinase (55-170) U/L Troponin I (0.000-0.034) ng/mL NT-Pro-B Natriuret Pep pg/mL Total Protein (6.3-8.2) g/dL Albumin (3.5-5.0) g/dL Serum Alcohol mg/dL Disposition Clinical Impression: Cardiomyopathy, V-tach, Defibrillator discharge, Lactic acidosis, NSTEMI (non- ST elevated myocardial infarction) Disposition: ADMITTED IP TO THIS HOSP Condition: Serious Is patient prescribed a controlled substance at d/c from ED?: No Time of Disposition: 19:40 Decision to Admit Reason: Admit from EC Decision Date: 06/22/23 Decision Time: 19:40
[2023-06-22 16:53] LABS: Basophils # (A) 0.1 k/uL (0-0.2); Basophils % (A) 1 %; Eosinophils # (A) 0.4 k/uL (0-0.7); Eosinophils % (A) 2 %; HCT 44.7 % (39.0-53.0); Lymphocytes # (A) 1.2 k/uL (1.0-4.8); Lymphocytes % (A) 8 %; MCH 30.7 pg (25.0-35.0); MCHC 31.4 g/dL (31.0-37.0); MCV 97.8 fL (80.0-100.0); Mean Platelet Volume 7.9; Monocytes # (A) 0.5 k/uL (0-1.0); Monocytes % (A) 3 %; Neutrophils # (A) 12.6 k/uL (1.3-7.7); Neutrophils % (A) 85 %; Platelet Count 225 k/uL (150-450); RBC 4.57 m/uL (4.30-5.90); RDW 13.1 % (11.5-15.5); WBC 14.8 k/uL (3.8-10.6)
[2023-06-22] MEDS: SODIUM CHLORIDE 0.9% 1,000 ML IV ONE (16:54)
[2023-06-22 17:01] LABS: HGB 14.1 gm/dL (13.0-17.5)
[2023-06-22 17:04] LABS: AST 42 U/L (17-59); African American GFR (CKD) 86 (>60 ml/min/1.73 sqM); Albumin 4.5 g/dL (3.5-5.0); Alcohol <10 mg/dL; Alkaline Phosphatase 65 U/L (38-126); Anion Gap 20 mmol/L; Blood Urea Nitrogen 18 mg/dL (9-20); Calcium 9.4 mg/dL (8.4-10.2); Carbon Dioxide 15 mmol/L (22-30); Chloride 103 mmol/L (98-107); Creatine Kinase 178 U/L (55-170); Glucose 197 mg/dL (74-99); Non-African American GFR(CKD) 75 (>60 ml/min/1.73 sqM); Potassium 4.5 mmol/L (3.5-5.1); Sodium 138 mmol/L (137-145); Total Bilirubin 0.6 mg/dL (0.2-1.3); Total Protein 6.9 g/dL (6.3-8.2)
[2023-06-22 17:09] LABS: ALT 29 U/L (4-49)
[2023-06-22 17:10] LABS: INR 0.9 (<1.2)
[2023-06-22 17:11] LABS: Partial Thromboplastin Time 22.8 sec (22.0-30.0); Prothrombin Time 10.3 sec (10.0-12.5)
--- NOTE | 2023-06-22 17:26 | XR ---
EXAMINATION TYPE: XR chest 1V portable DATE OF EXAM: 06/22/2023 5:15 PM CLINICAL INDICATION:Male, 57 years old with history of altered mental status; [facility] COMPARISON: Chest radiographs from 05/24/2023 TECHNIQUE: XR chest 1V portable Frontal view of the chest. FINDINGS: Lungs/Pleura: There is no evidence of pleural effusion, focal consolidation, or pneumothorax. Pulmonary vascularity: Unremarkable. Heart/mediastinum: Cardiomediastinal silhouette is unremarkable. Musculoskeletal: No acute osseous pathology. Other findings: None IMPRESSION: No acute cardiopulmonary disease/process.
[2023-06-22] MEDS: SODIUM CHLORIDE 0.9% 1,000 ML IV STA (18:31)
--- NOTE | 2023-06-22 18:46 | CT ---
EXAMINATION TYPE: CT chest angio for PE CT DLP: 461.1 mGycm, Automated exposure control for dose reduction was used. DATE OF EXAM: 06/22/2023 6:24 PM COMPARISON: 01/20/2022 CLINICAL INDICATION:Male, 57 years old with history of hypoxia, hypotensive; Hypoxia, hypotensive. TECHNIQUE/CONTRAST: CTA scan of the thorax is performed with IV Contrast, patient injected with 100 ml mL of Isovue 300, MIP images are created and reviewed these are created on a separate workstation.. FINDINGS: Pulmonary Artery: There is no evidence for a filling defect within the pulmonary vasculature to sugge st acute pulmonary embolism. The pulmonary artery is of normal size. Lungs/Pleura: Intralobular septal thickening. No evidence of focal consolidation, pleural effusion or pneumothorax. Posterior peripheral consolidation likely on basis of atelectasis. Groundglass opaciti es in the middle lobe and lingula and to a lesser extent the bilateral lower lobes is new from 022. Airway: Large airways are patent. Heart: There are is mildly enlarged for size. There is severe coronary artery atherosclerosis. Vasculature: No evidence of aortic aneurysm. Suspected occlusion of the left subclavian artery at its origin extending proximal 22.0 cm. Dilation limited due to phase of contrast and blooming artifact f rom dense calcifications. Partially visualized infrarenal abdominal aortic aneurysm with mural thromb us measuring up to 5.7 x 4.9 cm. Mediastinum: No gross evidence of adenopathy. Musculoskeletal: Mild degenerative disc disease changes are present throughout the thoracolumbar spin e. Severe degeneration changes of the spine. Soft Tissues: Unremarkable. Lower neck: No significant findings. Upper Abdomen: Left simple appearing renal cyst. IMPRESSION: 1. No evidence of pulmonary embolism. 2. Cardiomegaly pulmonary vascular congestion correlate for congestive heart failure. 3. Scattered new ground glass opacities within the lungs compared to 01/20/2022 possibly secondary to prior or new atypical pneumonia. 4. 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 Evaluation limited due to phase of contrast and blooming artifact from dense calcification. Area ext ends approximately 2 cm. Correlate for signs and symptoms of subclavian steal. 5. Partially visualized infrarenal abdominal aortic aneurysm with mural thrombus measuring up to 5.7 x 4.9 cm.
[2023-06-22] MEDS ORDERED: NALOXONE 0.4 MG/ML 1 ML VIAL IV PRN (19:42)
[2023-06-22 21:28] LABS: Appearance,Urine Clear (Clear); Bilirubin,Urine Negative (Negative); Blood,Urine Negative (Negative); Color,Urine Colorless; Glucose,Urine (UA) 4+ (Negative); Ketones,Urine Negative (Negative); Leukocyte Esterase,Urine Negative (Negative); Nitrite,Urine Negative (Negative); Protein,Urine Negative (Negative); Specific Gravity,Urine 1.035 (1.001-1.035); Urobilinogen,Urine <2.0 mg/dL (<2.0)
[2023-06-22] MEDS: AMIODARONE 200 MG TAB PO SCH (21:49)
[2023-06-22 22:07] LABS: Amphetamine Screen,Urine Not Detected (NotDetected); Barbiturate Screen,Urine Not Detected (NotDetected); Benzodiazepines Screen,Urine Not Detected (NotDetected); Cocaine Screen,Urine Not Detected (NotDetected); Methadone Screen, Urine Not Detected (NotDetected); Opiate Screen,Urine Not Detected (NotDetected); Oxycodone Screen, Urine Not Detected (NotDetected); Phencyclidine Screen,Urine Not Detected (NotDetected); Tricyclic Antidepressant,Urine Not Detected (NotDetected); Urn Cannabinoid Scrn Detected (NotDetected)
[2023-06-22] MEDS: LIDOCAINE 1% INJ 10MG/ML (20 ML MDV) SQ ONE (23:04)
--- NOTE | 2023-06-22 23:53 | XR ---
EXAM: XR Chest, 1 View CLINICAL HISTORY: ITS.REASON XR Reason: line placement TECHNIQUE: Frontal view of the chest. COMPARISON: 06/22/2023 at 1659 FINDINGS: Lungs: Interstitial edema. Pleural space: No pneumothoraces. Heart: Unremarkable. No cardiomegaly. Mediastinum: Unremarkable. Normal mediastinal contour. Bones/joints: No acute osseous abnormalities. Tubes, lines and devices: Interval placement of right IJ central venous line with tip in the mid SVC. IMPRESSION: 1. Interval placement of right IJ central venous line with tip in the mid SVC. No pneumothoraces. 2. Interstitial edema.
[2023-06-23] MEDS: TICAGRELOR 90 MG TAB PO SCH (00:35)
[2023-06-23] MEDS: NOREPINEPHRINE 32 MG in SODIUM CHLORIDE 0.9% 218 ML IV ONE (01:11)
--- NOTE | 2023-06-23 02:07 | P.CNPUL ---
History of Present Illness Consult date: 06/23/23 Requesting physician: Sussy Jeffery Reason for consult: other (Defibrillator discharge outpatient, severe ischemic cardiomyopathy, ICU management) Chief complaint: Altered mental status History of present illness: Patient is a 57-year-old white male with past medical history significant for multivessel coronary artery disease, recent non-ST elevation HI with underlying ischemic cardiomyopathy, chronic ongoing tobacco dependence, mild COPD. Patient was recently treated at our facility for acute HI and is post PCI utilizing Impella device, with penumbra aspiration thrombectomy of the LAD, PCI/stenting of the left main into the LAD, PTCA of the circumflex, and stenting of the RCA. Patient was noted to have severe ischemic cardiomyopathy with an ejection fraction of 10 to 15% at that time and was discharged with a LifeVest on 05/26/2023. He has reportedly followed up with his bleacher operator Dr. Urbano since then. He was on a regimen of beta-dewayne, Farxiga, and Brilinta. His most recent echocardiogram estimated a left ventricular ejection fraction of 20 to 25%. Since his hospital discharge, the patient reportedly has been feeling well. Yesterday afternoon the patient was visited by a family friend. The patient was noted to be unresponsive while lying on the couch. The friend did call EMS. On arrival, the patient had his LifeVest on and blue dye was noted. An interrogation was performed which showed an episode of ventricular tachycardia which was treated once with defibrillation. Patient is now alert and oriented. He is in no distress. He states that just prior to the event he felt flushed and was sweaty. He did have some brief nausea without emesis. He does not remember much during or after the episode. He denies any current chest pain, heart palpitations, lightheadedness, shortness of breath, cough. He is on 3 L/min nasal cannula. Blood pressure was noted to be marginal on arrival, and the patient will be started on norepinephrine infusion to maintain a MAP of 65 mmHg or greater. A right IJ triple-lumen central line catheter was placed by the ER physician. EKG shows normal sinus rhythm with T wave inversion in the lateral leads. No other obvious acute ischemic changes. No further episodes of ventricular arrhythmias. Patient was loaded with p.o. amiodarone. Chest CTA did not show any evidence of pulmonary embolism. It did show cardiomegaly, pulmonary vascular congestion, and scattered groundglass opacities. There was near complete occlusion of the left subclavian artery there was a partially visualized infrarenal abdominal aortic aneurysm with mural thrombus measuring up to 5.7 x 4.9 cm. Troponins elevated at 0.164 and 0.158 respectively. NT proBNP 7120. CBC on arrival: WBC count 14.8, hemoglobin 14.1, hematocrit 44.7, pl atelets 225. D-dimer was elevated 6.4. BMP on arrival: Sodium 138, potassium 4.5, chloride 103, serum bicarb 15, BUN 18, creatinine 1.08, glucose 197. Lactic 0.8. Patient's condition is currently guarded, and he will be admitted admitted to the intensive care unit once bed available. Review of Systems REVIEW OF SYSTEMS: CONSTITUTIONAL: Denies any recent significant weight loss or weight gain. EYES: Denies change in vision. EARS, NOSE, MOUTH, THROAT: Denies headaches, denies sore throat. CARDIOVASCULAR: See HPI RESPIRATORY: Denies shortness of breath, cough, congestion or hemoptysis. GASTROINTESTINAL: Denies change in appetite, abdominal pain, vomiting, or chinyere rrhea. There was some brief nausea. GENITOURINARY: Denies hematuria, denies infections. MUSKULOSKELETAL: Denies pain, denies swelling. INTEGUMENTARY: Denies rash, denies eczema. NEUROLOGICAL: Denies recent memory loss, no recent seizure activity. PSYCHIATRIC: Denies anxiety, denies depression. HEMATOLOGIC/LYMPHATIC: Denies anemia, denies enlarged lymph node Past Medical History Past Medical History: Coronary Artery Disease (CAD), COPD Additional Past Medical History / Comment(s): AAA 5.1, left subclavian steel syndrome History of Any Multi-Drug Resistant Organisms: None Reported Past Surgical History: Hernia Repair, Orthopedic Surgery Past Psychological History: No Psychological Hx Reported Smoking Status: Current every day smoker Medications and Allergies Home Medications Medication Instructions Recorded Confirmed Type Adhs 2 tab PO BID 05/21/23 06/22/23 History Aspirin EC [Ecotrin Low Dose] 81 mg PO DAILY 05/21/23 06/22/23 History Bio-3b-G 4 tab PO BID 05/21/23 06/22/23 History Bio-C-Plus 1 - 3 tab PO DAILY 05/21/23 06/22/23 History De-Stress 1 tab PO DAILY 05/21/23 06/22/23 History Purified Chondroitin Sulfates 1 - 3 tab PO DAILY 05/21/23 06/22/23 History Super Beets Chew 2 tab PO HS 05/21/23 06/22/23 History Atorvastatin [Lipitor] 80 mg PO DAILY 90 Days #90 tab 05/25/23 06/22/23 Rx Dapagliflozin Propanediol [Farxiga] 10 mg PO DAILY 90 Days #90 tab 05/25/23 06/22/23 Rx Metoprolol Succinate (ER) [Toprol 12.5 mg PO DAILY 90 Days #90 tab 05/25/23 06/22/23 Rx XL] Ticagrelor [Brilinta] 90 mg PO BID 60 Days #180 tab 05/25/23 06/22/23 Rx Ht Combination Drops 2 ml PO HS 06/22/23 06/22/23 History Nitroglycerin Sl Tabs [Nitrostat] 0.4 mg SL Q5M PRN 06/22/23 06/22/23 History Allergies Allergy/AdvReac Type Severity Reaction Status Date / Time Oxmgwth-HYT-KaG Reductase AdvReac Unknown Verified 06/22/23 18:59 Inhibitor Physical Exam Vitals: Vital Signs Temp Pulse Resp BP Pulse Ox 06/23/23 00:00 70 18 97/63 95 06/22/23 23:00 80 18 69/47 95 06/22/23 22:30 79 18 86/72 96 06/22/23 22:00 87 18 63/53 97 06/22/23 21:30 82 18 81/56 97 06/22/23 21:00 80 18 81/56 97 06/22/23 20:00 84 16 80/63 95 06/22/23 17:49 72 16 85/52 96 06/22/23 17:17 84 16 75/52 95 06/22/23 16:50 77 16 106/77 98 06/22/23 16:47 77 20 106/77 97 06/22/23 16:26 16 06/22/23 16:25 95 16 72/58 92 L 06/22/23 16:16 97 F L 103 H 20 84/50 87 L Intake and Output 06/22/23 06/22/23 06/23/23 14:59 22:59 06:59 Intake Total 0.542 Balance 0.542 Intake: Intake, IV Titration 0.542 Amount Norepinephrine 32 mg In 0.542 Sodium Chloride 0.9% 218 ml @ 0.03 MCG/KG/MIN 1. 084 mls/hr IV .Q24H ONE Rx#:[id number] Other: Weight 77.111 kg GENERAL EXAM: Alert, 57-year-old white male, comfortable in no apparent distress. HEAD: Normocephalic and atraumatic EYES: Normal reaction of pupils, equal size. NOSE: Clear with pink turbinates. THROAT: No erythema or exudates. NECK: No masses, mild JVD CHEST: No chest wall deformity. LUNGS: Equal air entry with no crackles, wheeze, rhonchi or dullness. On 3 L/min nasal cannula. SpO2 95%. No conversational dyspnea or accessory muscle use.. CVS: Distant heart sounds, S1 and S2 normal with no audible murmur, regular rhythm. No extra heart sounds ABDOMEN: No hepatosplenomegaly, active bowel sounds, no guarding or rigidity. SPINE: No scoliosis or deformity SKIN: No rashes CENTRAL NERVOUS SYSTEM: No focal deficits, tone is normal in all 4 extremities. EXTREMITIES: There is mild nonpitting bilateral lower extremity edema. clubbing, or cyanosis. Peripheral pulses are intact. Results - Laboratory Findings CBC and BMP: 06/22/23 16:26 06/22/23 16:26 PT/INR, D-dimer PT 10.3 sec (10.0-12.5) 06/22/23 16:26 INR 0.9 (<1.2) 06/22/23 16:26 D-Dimer 6.42 mg/L FEU (<0.60) H 06/22/23 16:26 Abnormal lab findings: Abnormal Labs 06/22/23 06/22/23 06/22/23 16:26 16:26 16:26 WBC 14.8 H Neutrophils # 12.6 H D-Dimer 6.42 H Carbon Dioxide 15 L Glucose 197 H Plasma Lactic Acid Osiel Creatine Kinase 178 H Troponin I Urine Glucose (UA) U Marijuana (THC) Screen 06/22/23 06/22/23 06/22/23 16:26 16:26 20:48 WBC Neutrophils # D-Dimer Carbon Dioxide Glucose Plasma Lactic Acid Osiel 10.7 H* Creatine Kinase Troponin I 0.067 H* Urine Glucose (UA) 4+ H U Marijuana (THC) Screen Detected H 06/22/23 06/23/23 21:22 00:17 WBC Neutrophils # D-Dimer Carbon Dioxide Glucose Plasma Lactic Acid Osiel Creatine Kinase Troponin I 0.164 H* 0.158 H* Urine Glucose (UA) U Marijuana (THC) Screen - Diagnostic Findings Chest x-ray: image reviewed CT scan - chest: image reviewed Assessment and Plan Assessment: Severe ischemic cardiomyopathy, with most recent estimated left ventricular ejection fraction 20 to 25%, patient's LifeVest did fire outpatient after identifying sustained run of ventricular tachycardia. Hypotension and cardiogenic shock, currently requiring the addition of vasopressors Acute hypoxemic respiratory failure, secondary to exacerbation of systolic congestive heart failure Elevated troponins, rule out non-ST elevation HI, but likely related to cardiac defibrillation Coronary artery disease, with recent history of non-ST elevation myocardial infarction, status post Impella placement, penumbra aspiration thrombectomy of the LAD, PCI/stenting of the left main into the LAD, PTBA of the circumflex, and stenting of the RCA. Leukocytosis, likely reactive Elevated D-dimer, pulmonary embolism not found on chest CTA Left subclavian steal syndrome, with near complete occlusion of the left subclavian artery just past its origin with calcified plaque Infrarenal abdominal aortic aneurysm, with mural thrombus measuring up to 5.7 x 4.9 cm History of hyperlipidemia Chronic ongoing tobacco dependence, reportedly down to 1 cigarette/day Mild COPD, stable Marijuana smoker Plan: Patient's medications, labs, imaging reviewed No further episodes of ventricular arrhythmias reported inpatient, patient was loaded with p.o. amiodarone per cardiology recommendations Awaiting further recommendations from cardiology Blood pressure is hypotensive, requiring vasopressor support in the form of n orepinephrine, to maintain MAP 65 mmHg or greater monitor serial troponins Continue supplemental oxygen to maintain oxygen saturation of 92% or greater Smoking cessation counseling performed Patient will be admitted to the intensive care unit once bed available. I have personally seen and examined the patient, performed the documentation and the assessment and plan as written. Number of minutes spent on the visit:20 Time with Patient: Greater than 30
[2023-06-23 05:55] LABS: Basophils # (A) 0.1 k/uL (0-0.2); Basophils % (A) 1 %; Eosinophils # (A) 0.2 k/uL (0-0.7); Eosinophils % (A) 2 %; HCT 41.9 % (39.0-53.0); HGB 13.4 gm/dL (13.0-17.5); Hypochromasia Marked; Lymphocytes # (A) 1.1 k/uL (1.0-4.8); Lymphocytes % (A) 8 %; MCH 32.5 pg (25.0-35.0); MCV 101.7 fL (80.0-100.0); Macrocytosis Slight; Mean Platelet Volume 8.4; Monocytes # (A) 0.8 k/uL (0-1.0); Monocytes % (A) 6 %; Neutrophils # (A) 10.4 k/uL (1.3-7.7); Neutrophils % (A) 81 %; Platelet Count 184 k/uL (150-450); RBC 4.13 m/uL (4.30-5.90); RDW 13.3 % (11.5-15.5); WBC 12.8 k/uL (3.8-10.6)
[2023-06-23 06:02] LABS: African American GFR (CKD) >90 (>60 ml/min/1.73 sqM); Anion Gap 10 mmol/L; Blood Urea Nitrogen 16 mg/dL (9-20); Calcium 8.6 mg/dL (8.4-10.2); Carbon Dioxide 15 mmol/L (22-30); Chloride 111 mmol/L (98-107); Glucose 67 mg/dL (74-99); Non-African American GFR(CKD) >90 (>60 ml/min/1.73 sqM); Potassium 4.5 mmol/L (3.5-5.1); Sodium 136 mmol/L (137-145)
[2023-06-23] MEDS: DAPAGLIFLOZIN PROPANEDIOL 10 MG TABLET PO SCH (08:32)
[2023-06-23] MEDS: ASPIRIN 81 MG PO SCH (08:35)
[2023-06-23] MEDS: ATORVASTATIN 80 MG TAB PO SCH (08:35)
--- NOTE | 2023-06-23 10:13 | XR ---
EXAMINATION TYPE: XR chest 1V portable DATE OF EXAM: 06/23/2023 Comparison: 06/22/2023 Clinical History: 57-year-old male CHF exacerbation Findings: Heart and lungs are normal in size. Right IJ CVC tip at the upper SVC level. Interstitial prominence. No consolidation or pleural effusion. Impression: Borderline heart size. Mild pulmonary vascular congestion. No otis pulmonary edema. The interstitium may be slightly improved from prior.
[2023-06-23] MEDS: HEPARIN SODIUM 1,000 UN/ML (10ML VL) IV ONE (15:04)
[2023-06-23] MEDS: HEPARIN SOD,PORK IN 0.45% NACL 25,000 UNIT in 0.45% NACL 1 250ML.BAG IV SCH (15:05)
[2023-06-23 15:10] LABS: Basophils # (A) 0.1 k/uL (0-0.2); Basophils % (A) 1 %; Eosinophils # (A) 0.3 k/uL (0-0.7); Eosinophils % (A) 3 %; HCT 38.6 % (39.0-53.0); Lymphocytes # (A) 1.1 k/uL (1.0-4.8); Lymphocytes % (A) 10 %; MCH 31.9 pg (25.0-35.0); MCHC 33.7 g/dL (31.0-37.0); Mean Platelet Volume 7.3; Monocytes # (A) 0.7 k/uL (0-1.0); Monocytes % (A) 7 %; Neutrophils # (A) 8.6 k/uL (1.3-7.7); Neutrophils % (A) 79 %; Platelet Count 194 k/uL (150-450); RBC 4.07 m/uL (4.30-5.90); RDW 13.1 % (11.5-15.5)
[2023-06-23 15:21] LABS: MCV 94.8 fL (80.0-100.0)
[2023-06-23 15:26] LABS: Partial Thromboplastin Time 25.9 sec (22.0-30.0)
--- NOTE | 2023-06-23 20:23 | DS ---
DISCHARGE SUMMARY CHIEF COMPLAINT: Ventricular tachycardia. HISTORY OF PRESENT ILLNESS AND PHYSICAL EXAM: Details of this man's history and physical can be found in the initial workup. LABORATORY STUDIES: While he was in the hospital, he had laboratory studies, details of which can be found in the laboratory section of his chart and included elevated troponins and BNP. COURSE IN THE HOSPITAL: After admission, he was placed on bedrest and started on intravenous fluids and an amiodarone drip was started along with heparin. He was seen by Cardiology, Pulmonology. It was clear that this patient was going to require an implanted ICD. This procedure was not available at this hospital for at least a week. The patient and the family requested transfer to a tertiary hospital. [facility] was contacted, but they do not have any ICU or CCU beds available. [facility] was then contacted and they agreed to take the patient in transfer. FINAL DIAGNOSES: 1. Ventricular tachycardia. 2. Coronary artery disease. 3. Extensive myocardial infarction. 4. Ischemic cardiomyopathy. 5. Atherosclerotic cardiovascular disease. 6. Left subclavian steal. 7. Abdominal aortic aneurysm. 8. Chronic obstructive pulmonary disease and nicotine abuse. OPERATIONS: None. CONSULTATIONS: Cardiology, Pulmonology. MMODL / IJN: [id number] /
--- NOTE | 2023-06-23 20:53 | HP ---
HISTORY AND PHYSICAL CHIEF COMPLAINT: Discharge of LifeVest. HISTORY OF PRESENT ILLNESS: This is another admission for this 57-year-old male. About a month ago, he came to the hospital with acute pulmonary edema after sustaining a severe myocardial infarction with hypotension. He was taken to pit laborer for stenting at 2 different sittings and required an Impella for blood pressure support while he was in the hospital. At that time, his ejection fraction was 10. He went home with a LifeVest and has been doing "well." He denies any chest pain, lightheadedness, dizziness, shortness of breath, palpitations, etc. He recently had an ejection fraction of 20% to 23%. He stated that he underwent a stress test and was "I felt fine. I had no problems." On the evening of his admission, a friend was with him and stated that he seemed to be acting slightly funny and then he passed out when his defibrillator fired. It was interrogated and he was found to have ventricular tachycardia. In the emergency room, the only complaint was sore tongue. He had no particular shortness of breath. He is in sinus rhythm. His troponins are up slightly, but this could be related to his shock. REVIEW OF SYSTEMS: Otherwise normal. Past medical history, family history, and personal and social histories are otherwise normal. PHYSICAL EXAMINATION: VITAL SIGNS: Blood pressure is 80 systolically. HEAD, EARS, EYES, NOSE, MOUTH AND THROAT: Normal. NECK: Neck veins are not distended. CHEST: Clear. CARDIAC: Normal sinus rhythm. ABDOMEN: Soft and nontender. EXTREMITIES: Normal. NEUROLOGICAL: He is intact. IMPRESSION: 1. Ventricular tachycardia. 2. Recent severe myocardial infarction. 3. Advanced coronary artery disease. 4. Atherosclerotic cardiovascular disease. 5. Left subclavian steal. 6. Abdominal aortic aneurysm. 7. Chronic obstructive pulmonary disease. PLAN: 1. Bedrest. 2. IV fluids. 3. Cardiology consult. 4. IV amiodarone. 5. IV heparin. 6. Levophed for blood pressure support. MMODL / IJN: [id number] /
[2023-06-23] MEDS: METOPROLOL TARTRATE 12.5 MG TAB PO SCH (21:07)
[2023-06-23] MEDS: HEPARIN SODIUM 1,000 UN/ML (10ML VL) IV PRN (22:01)
--- NOTE | 2023-06-24 01:08 | PN ---
PROGRESS NOTE DATE OF SERVICE: 06/23/2023 CHIEF COMPLAINT: Ventricular tachycardia. HISTORY OF PRESENT ILLNESS: This gentleman feels fine. His blood pressure is up with a systolic around 110, on Levophed. He denies any chest pain. PHYSICAL EXAMINATION: CHEST: Clear. CARDIAC: Sinus rhythm. ABDOMEN: Soft and aneurysm is palpable. IMPRESSION: 1. Ventricular tachycardia. 2. Coronary artery disease. 3. Ischemic cardiomyopathy. 4. Chronic obstructive pulmonary disease. 5. Subclavian steal on the left. 6. Abdominal aortic aneurysm. PLAN: Continue with amiodarone and await further recommendations from Cardiology. MMODL / IJN: [id number] /
[2023-06-24] MEDS: NOREPINEPHRINE 4 MG in SODIUM CHLORIDE 0.9% 250 ML IV SCH (01:30)
[2023-06-24 04:14] LABS: Basophils # (A) 0.1 k/uL (0-0.2); Basophils % (A) 1 %; Eosinophils # (A) 0.7 k/uL (0-0.7); Eosinophils % (A) 6 %; HCT 39.6 % (39.0-53.0); HGB 13.2 gm/dL (13.0-17.5); Lymphocytes # (A) 1.3 k/uL (1.0-4.8); Lymphocytes % (A) 11 %; MCH 31.6 pg (25.0-35.0); MCHC 33.4 g/dL (31.0-37.0); MCV 94.7 fL (80.0-100.0); Mean Platelet Volume 7.7; Monocytes # (A) 0.6 k/uL (0-1.0); Monocytes % (A) 6 %; Neutrophils # (A) 8.8 k/uL (1.3-7.7); Neutrophils % (A) 75 %; Platelet Count 177 k/uL (150-450); RBC 4.18 m/uL (4.30-5.90); RDW 13.2 % (11.5-15.5); WBC 11.7 k/uL (3.8-10.6)
[2023-06-24 04:23] LABS: Prothrombin Time 10.6 sec (10.0-12.5)
[2023-06-24 04:34] LABS: ALT 24 U/L (4-49); AST 74 U/L (17-59); African American GFR (CKD) >90 (>60 ml/min/1.73 sqM); Albumin 3.4 g/dL (3.5-5.0); Alkaline Phosphatase 63 U/L (38-126); Anion Gap 7 mmol/L; Blood Urea Nitrogen 16 mg/dL (9-20); Calcium 8.7 mg/dL (8.4-10.2); Carbon Dioxide 20 mmol/L (22-30); Chloride 110 mmol/L (98-107); Glucose 86 mg/dL (74-99); Non-African American GFR(CKD) >90 (>60 ml/min/1.73 sqM); Potassium 4.1 mmol/L (3.5-5.1); Sodium 137 mmol/L (137-145); Total Bilirubin 0.8 mg/dL (0.2-1.3); Total Protein 5.8 g/dL (6.3-8.2)
--- NOTE | 2023-06-24 11:32 | CA ---
Transthoracic Echo Report Name: Monica Franco Age: 57 Gender: M : 1965 Exam Date: 06/23/2023 16:30 Exam Location: [facility] Ht (in): 70 Wt (lb): 170 Ordering Physician: Jt Cortez MD ([id number]) Attending/Referring Phys: Nip Wrapper Naina Araiza RCS Procedure CPT: Indications: LVEF and LV thrombus use definity Cardiac Hx: Technical Quality: Technically difficult study Contrast 1: Definity Total Dose (mL): 2 Contrast 2: Total Dose (mL): MEASUREMENTS (Male / Female) Normal Values 2D ECHO LV Diastolic Volume MOD BP 223.4 cm??? 67 - 155 / 56 - 104 cm??? LV Systolic Volume MOD BP 153.4 cm??? 22 - 58 / 19 - 49 cm??? LV Ejection Fraction MOD BP 31.3 % >= 55 % LV Cardiac Index MOD BP 2504.5 cm???/min???m??? LV Diastolic Volume MOD 4C 225.8 cm??? LV Systolic Volume MOD 4C 154.3 cm??? LV Ejection Fraction MOD 4C 31.7 % LV Cardiac Index MOD 4C 2555.2 cm???/min???m??? LV Diastolic Length 4C 10.3 cm LV Systolic Length 4C 9.8 cm LV Diastolic Volume MOD 2C 218.9 cm??? LV Systolic Volume MOD 2C 152.0 cm??? LV Ejection Fraction MOD 2C 30.5 % LV Cardiac Index MOD 2C 2390.5 cm???/min???m??? LV Diastolic Length 2C 10.5 cm LV Systolic Length 2C 9.9 cm FINDINGS Left Ventricle Left ventricular ejection fraction is estimated at 25-30 %. Severely increased left ventricular diastolic volume. Severely increased left ventricular systolic volume. Moderately decreased left ventricular ejection fraction. Right Ventricle Right ventricle not well visualized. Right Atrium Right atrium not assessed. Left Atrium Left atrium not assessed. Mitral Valve Mitral valve not assessed. Aortic Valve Aortic valve not assessed. Tricuspid Valve Tricuspid valve not assessed. Pulmonic Valve Pulmonic valve not assessed. Pericardium No pericardial effusion. Aorta Aortic root and proximal ascending aorta not assessed. CONCLUSIONS Left ventricular ejection fraction is estimated at 25-30 %. Severe LV dilatation Globally reduced LVEF No effusion No thrombus in LV cavity on definity contrast imaging When compared to prior echo from 06/18/23 LV size is same and LVEF is minimally improved Previewed by: Dr Jt Cortez (Electronically Signed) Final Date: 24 June 2023 11:30
--- NOTE | 2023-06-24 13:26 | P.CRDCN ---
History of Present Illness Consult date: 06/23/23 History of present illness: HISTORY OF PRESENTING ILLNESS 57-year-old who presented to the hospital initially on May 21, 2023 with late presenting NH eventually requiring multivessel PCI with stenting of distal left main to LAD, Impella assisted PCI. Patient had a severe ischemic cardiomyopathy with a EF of 10 to 15% and was discharged home on LifeVest on 05/26/2023. Patient has been kept on medical management with metoprolol 25 mg twice daily, Farxiga aspirin and Brilinta. Patient had a echocardiogram last week on May which reported an EF of 20 to 25%. yesterday afternoon patient was visited by a family friend. The patient was noticed to be unresponsive lead patientLying on the couch. Patient's friend called the EMS. On arrival of EMS it was noticed that patient had blue dye from the LifeVest suggesting that the LifeVest shocked him. An interrogation was performed which showed ventricular tachycardia. When EMS arrived patient was in sinus rhythm, was weak and clammy. Patient reports that just before having this event the last thing he remembered was feeling flushed and sweaty along with some nausea. Since his hospital discharge he has not had any chest pain chest pressure or shortness of breath. Patient has been euvolemic measuring his daily weights which has been stable. He has not required diuretic therapy. On current admission his ECG appears to have sinus rhythm with nonspecific IVCD, and T wave inversions in lateral leads. Labs shows D-dimer of 6.4, platelets 225, hemoglobin 14, sodium 138, potassium 4.5, creatinine 1.08, lactate 0.8. BNP 7000, troponin 0.06, 0.16, 0.15 Patient underwent a CTA which did not show any evidence of PE. It did show a 5.7 infrarenal aortic aneurysm with intramural thrombus. For this patient has been following up with [facility] vascular surgery team On today's evaluation he denies having any active chest pain chest pressure or shortness of breath. He does report mild fatigue but otherwise no lightheadedness or dizziness REVIEW OF SYSTEMS 14 point review of system is negative except what is mentioned above in HPI. PHYSICAL EXAMINATION Vital signs reviewed. Head: Normocephalic. Eyes: Sclerae nonicteric. Neck: Brisk carotid upstroke, no jugular venous distention. Lungs: Clear to auscultation. Heart: Regular rate and rhythm, S1-S2, no S3, no murmur or rub. Abdomen: Soft nontender, positive bowel sounds. Extremities: No edema, intact distal pulses. Neuro: Alert, oritented, no focal deficits. Detailed neuro exam was not performed. ASSESSMENT S/p defibrillation by LifeVest for VT Ischemic cardiomyopathy EF 20% Elevated troponin, Type II NSTEMI from VT and defib. Cardiogenic shock, getting better S/p PCI left main into LAD 4 x 38 mm, LCx angioplasty, PCI RCA 4 x 33 and 4 x 38 mm LEONARD PLAN No signs of cardiogenic shock. Normal lactate, warm extremities, no signs of congestion. Wean off norepinephrine. Patient's baseline blood pressure 90/60 mmHg Continue aspirin, atorvastatin, Brilinta Resume metoprolol at 12.5 mg twice daily. Uptitrate as tolerated Continue Farxiga Start IV heparin drip for next 24 hours Start amiodarone 400 mg twice daily. Continue for 7 days after that reduce to 200 mg twice daily for 7 days and then 200 mg daily. Set up for ICD placement either inpatient or outpatient Jt Cortez MD, FACC, RPVI Thank you for allowing [facility] to participate in this patient's care. Feel free to reach out in case of any followup questions. Past Medical History Past Medical History: Coronary Artery Disease (CAD), COPD Additional Past Medical History / Comment(s): AAA 5.1, left subclavian steel syndrome History of Any Multi-Drug Resistant Organisms: None Reported Past Surgical History: Hernia Repair, Orthopedic Surgery Past Psychological History: No Psychological Hx Reported Smoking Status: Current every day smoker Medications and Allergies Home Medications Medication Instructions Recorded Confirmed Type Adhs 2 tab PO BID 05/21/23 06/22/23 History Aspirin EC [Ecotrin Low Dose] 81 mg PO DAILY 05/21/23 06/22/23 History Bio-3b-G 4 tab PO BID 05/21/23 06/22/23 History Bio-C-Plus 1 - 3 tab PO DAILY 05/21/23 06/22/23 History De-Stress 1 tab PO DAILY 05/21/23 06/22/23 History Purified Chondroitin Sulfates 1 - 3 tab PO DAILY 05/21/23 06/22/23 History Super Beets Chew 2 tab PO HS 05/21/23 06/22/23 History Atorvastatin [Lipitor] 80 mg PO DAILY 90 Days #90 tab 05/25/23 06/22/23 Rx Dapagliflozin Propanediol [Farxiga] 10 mg PO DAILY 90 Days #90 tab 05/25/23 06/22/23 Rx Metoprolol Succinate (ER) [Toprol 12.5 mg PO DAILY 90 Days #90 tab 05/25/23 06/22/23 Rx XL] Ticagrelor [Brilinta] 90 mg PO BID 60 Days #180 tab 05/25/23 06/22/23 Rx Ht Combination Drops 2 ml PO HS 06/22/23 06/22/23 History Nitroglycerin Sl Tabs [Nitrostat] 0.4 mg SL Q5M PRN 06/22/23 06/22/23 History Allergies Allergy/AdvReac Type Severity Reaction Status Date / Time Smbhnth-VHN-AiO Reductase AdvReac Unknown Verified 06/22/23 18:59 Inhibitor Physical Exam Vitals: Vital Signs Temp Pulse Resp BP Pulse Ox 06/23/23 14:15 79 19 99/67 93 L 06/23/23 14:00 75 14 88/58 96 06/23/23 13:45 85 18 82/69 94 L 06/23/23 13:30 90 16 85/60 92 L 06/23/23 13:15 80 19 106/81 93 L 06/23/23 13:00 86 18 89/57 94 L 06/23/23 12:45 96 16 90/55 95 06/23/23 12:30 78 18 100/66 94 L 06/23/23 12:15 85 16 88/64 94 L 06/23/23 12:00 80 18 95/63 93 L 06/23/23 11:45 80 16 114/71 94 L 06/23/23 11:30 87 16 104/71 95 06/23/23 11:15 79 18 105/64 94 L 06/23/23 11:00 81 18 116/64 94 L 06/23/23 10:45 80 18 112/63 95 06/23/23 10:30 78 16 113/64 95 06/23/23 10:15 73 17 117/63 96 06/23/23 10:00 74 18 108/69 95 06/23/23 09:45 76 15 109/68 94 L 03/05/24 09:30 77 16 80/69 94 L 03/05/24 09:15 76 16 104/69 94 L 03/05/24 09:00 80 17 106/71 94 L 03/05/24 08:45 85 18 105/71 95 03/05/24 08:35 86 18 105/71 95 03/05/24 08:30 88 18 102/71 96 03/05/24 08:15 74 16 106/69 95 03/05/24 08:00 93 16 92/65 96 03/05/24 07:45 80 16 99/66 95 03/05/24 07:30 71 16 103/67 95 03/05/24 07:15 67 18 111/64 95 03/05/24 07:00 71 16 115/67 95 03/05/24 06:30 84 18 106/72 95 03/05/24 05:15 82 18 117/79 95 03/05/24 04:15 68 18 89/58 95 03/05/24 04:00 76 18 87/65 97 03/05/24 03:45 79 18 104/81 96 03/05/24 03:30 82 18 83/56 96 03/05/24 03:15 78 18 87/74 97 03/05/24 03:00 80 18 63/44 96 03/05/24 02:45 66 18 73/54 95 03/05/24 02:30 70 18 73/50 95 03/05/24 02:15 70 18 73/50 97 03/05/24 01:45 76 18 96/69 97 03/05/24 01:15 75 18 66/43 97 03/05/24 01:10 70 18 60/48 97 03/05/24 00:00 70 18 97/63 95 03/04/24 23:00 80 18 69/47 95 03/04/24 22:30 79 18 86/72 96 03/04/24 22:00 87 18 63/53 97 03/04/24 21:30 82 18 81/56 97 03/04/24 21:00 80 18 81/56 97 03/04/24 20:00 84 16 80/63 95 03/04/24 17:49 72 16 85/52 96 03/04/24 17:17 84 16 75/52 95 03/04/24 16:50 77 16 106/77 98 06/22/23 16:47 77 20 106/77 97 06/22/23 16:26 16 06/22/23 16:25 95 16 72/58 92 L 06/22/23 16:16 97 F L 103 H 20 84/50 87 L Intake and Output 06/22/23 06/23/23 06/23/23 22:59 06:59 14:59 Intake Total 14.199 20.907 Balance 14.199 20.907 Intake: Intake, IV Titration 14.199 20.907 Amount Norepinephrine 32 mg In 14.199 20.907 Sodium Chloride 0.9% 218 ml @ 0.03 MCG/KG/MIN 1. 084 mls/hr IV .Q24H ONE Rx#:[id number] Other: Weight 77.111 kg Results 06/23/23 04:28 06/23/23 04:28 Cardiac Enzymes 06/22/23 06/22/23 06/22/23 Range/Units 16:26 16:26 21:22 AST 42 (17-59) U/L Troponin I 0.067 H* 0.164 H* (0.000-0.034) ng/mL 06/23/23 Range/Units 00:17 AST (17-59) U/L Troponin I 0.158 H* (0.000-0.034) ng/mL Coagulation 06/22/23 Range/Units 16:26 PT 10.3 (10.0-12.5) sec APTT 22.8 (22.0-30.0) sec CBC 06/22/23 06/23/23 Range/Units 16:26 04:28 WBC 14.8 H 12.8 H (3.8-10.6) k/uL RBC 4.57 4.13 L (4.30-5.90) m/uL Hgb 14.1 D 13.4 (13.0-17.5) gm/dL Hct 44.7 41.9 (39.0-53.0) % Plt Count 225 184 (150-450) k/uL Comprehensive Metabolic Panel 06/22/23 06/23/23 Range/Units 16:26 04:28 Sodium 138 136 L (137-145) mmol/L Potassium 4.5 4.5 (3.5-5.1) mmol/L Chloride 103 111 H (98-107) mmol/L Carbon Dioxide 15 L 15 L (22-30) mmol/L BUN 18 16 (9-20) mg/dL Creatinine 1.08 0.89 (0.66-1.25) mg/dL Glucose 197 H 67 L (74-99) mg/dL Calcium 9.4 8.6 (8.4-10.2) mg/dL AST 42 (17-59) U/L ALT 29 (4-49) U/L Alkaline Phosphatase 65 (38-126) U/L Total Protein 6.9 (6.3-8.2) g/dL Albumin 4.5 (3.5-5.0) g/dL Current Medications Generic Name Dose Route Start Last Admin Trade Name Freq PRN Reason Stop Dose Admin Amiodarone HCl 400 mg 06/22/23 21:00 06/23/23 08:32 Amiodarone 200 Mg Tab PO 400 mg BID SUSHIL Administration Aspirin 81 mg 06/23/23 09:00 06/23/23 08:35 Aspirin 81 Mg PO 81 mg DAILY SUSHIL Administration Atorvastatin Calcium 80 mg 06/23/23 09:00 06/23/23 08:35 Atorvastatin 80 Mg Tab PO 80 mg DAILY SUSHIL Administration Dapagliflozin 10 mg 06/23/23 09:00 06/23/23 08:32 Dapagliflozin Propanediol 10 Mg Tablet PO 10 mg DAILY SUSHIL Administration Heparin Sodium (Porcine) 0 unit 06/23/23 14:06 Heparin Sodium 1,000 Un/Ml (10ml Vl) IV PER PROTOCOL PRN Low PTT Protocol Norepinephrine Bitartrate 32 250 mls @ 1.084 mls/hr 06/22/23 22:58 06/23/23 11:06 mg/ Sodium Chloride IV 06/23/23 22:57 0.09 mcg/kg/min .Q24H ONE 3.253 mls/hr Titration Protocol 0.03 MCG/KG/MIN Heparin Sodium/Sodium Chloride 250 mls @ 9.253 mls/hr 06/23/23 14:15 25,000 unit/ Sodium Chloride IV .Q24H SUSHIL Protocol 12 UNITS/KG/HR Metoprolol Tartrate 12.5 mg 06/23/23 21:00 Metoprolol Tartrate 12.5 Mg Tab PO BID [facility] Naloxone HCl 0.2 mg 06/22/23 19:42 Naloxone 0.4 Mg/Ml 1 Ml Vial IV Q2M PRN Opioid Reversal Ticagrelor 90 mg 06/22/23 23:30 06/23/23 08:35 Ticagrelor 90 Mg Tab PO 90 mg BID SUSHIL Administration Intake and Output 06/22/23 06/23/23 06/23/23 22:59 06:59 14:59 Intake Total 14.199 20.907 Balance 14.199 20.907 Intake: Intake, IV Titration 20. Amount Norepinephrine 32 mg In 20.907 Sodium Chloride 0.9% 218 ml @ 0.03 MCG/KG/MIN 1. 084 mls/hr IV .Q24H ONE Rx#:[id number] Other: Weight 77.111 kg 06/23/23 04:28 06/23/23 04:28
--- NOTE | 2023-06-24 14:12 | P.DS ---
Providers Date of admission: 06/22/23 19:44 Expected date of discharge: 06/24/23 Attending physician: Westley Barber Consults: 06/22/23 19:42 Consult Physician Stat Consulting Provider: Cinda Pina Consult Reason/Comments: defibrillator discharge, cardiomyopathy Do you want consulting provider notified?: Already Contacted Consult Physician Urgent Consulting Provider: [facility] Consult Reason/Comments: defibrillator discharge, cardiomyopathy Do you want consulting provider notified?: Already Contacted Primary care physician: Stated None Hospital Course: Final diagnosis Ventricular tachycardia Recent severe myocardial infarction Advanced coronary artery disease Atherosclerotic cardiovascular disease Left subclavian steal syndrome Abdominal aortic aneurysm Chronic obstructive pulmonary disease history Discharge disposition Patient is being transferred in a stable condition with guarded prognosis to [facility] in [place] for tertiary care. Patient will follow-up with Dr. Barber in the outpatient setting upon discharge. Patient has been accepted by Dr. Dye at [facility] awaiting cardiology evaluation. Total time taken is greater than 35 minutes. Hospital course This is a 57-year-old male who was recently admitted with ventricular tachycardia. Apparently his defibrillator fired and patient became unresponsive and was brought here to the hospital for further evaluation. Patient has had a major heart attack on May 21 and had stenting on 2 different occasions requiring Impella with significant hypotension. He was noted to have an EF of 10 and a LifeVest was initiated and sent home. Patient recently had this evaluated found to have an EF of 20 to 25% and has had a stress test. Patient did have elevated troponins and evaluated by cardiology and there is no availability for pacemaker placement at this time and recommending transfer to tertiary treatment center for cardiac evaluation. Dr. Cortez cardiology evaluated the patient here and discussed with the family and also discussed with the critical care transport nurse at [facility] and Dr. Dye excepted the patient for transfer. Currently awaiting a bed and transfer team will call and update the unit once a bed is available. Per transfer team possibly sometime later this evening for transfer. Currently no reports of chest pain, shortness of breath, or palpitations. Patient is afebrile. No reports of nausea or vomiting and patient is tolerating diet. Patient will be transferred to [facility] once a bed is available. Patient and family are agreeable with this transfer Physical exam: Gen: This is a 57-year-old male who is awake, alert and oriented x 2, well- developed, well-nourished HEENT: Head is atraumatic, normocephalic. Pupils equal, round. Sclerae is anicteric. NECK: Supple. No JVD. No lymphadenopathy. No thyromegaly. LUNGS: Clear to auscultation. No wheezes or rhonchi. No intercostal retractions. HEART: S1, S2 are muffled ABDOMEN: Soft. Bowel sounds are present. No masses. No tenderness. EXTREMITIES: No pedal edema. No calf tenderness. NEUROLOGICAL: Patient is awake, alert and oriented x2. Cranial nerves 2 through 12 are grossly intact. Please refer to medication reconciliation sheet for a list of medications. The impression and plan of care has been dictated by Kenya Hurley, Nurse Practitioner as directed. Dr. Alexandr MD I have performed a history and examination and MDM of this patient, discussed the same with the dictator, and agree with the dictator's assessment and plan as written ,documented as a scribe. Based on total visit time, I have performed more than 50% of the visit. Patient Condition at Discharge: Serious Plan - Discharge Summary New Discharge Prescriptions: No Action Super Beets Chew 2 tab PO HS Purified Chondroitin Sulfates 1 - 3 tab PO DAILY Ticagrelor [Brilinta] 90 mg PO BID 60 Days #180 tab Ht Combination Drops 2 ml PO HS De-Stress 1 tab PO DAILY Aspirin EC [Ecotrin Low Dose] 81 mg PO DAILY Adhs 2 tab PO BID Bio-C-Plus 1 - 3 tab PO DAILY Bio-3b-G 4 tab PO BID Dapagliflozin Propanediol [Farxiga] 10 mg PO DAILY 90 Days #90 tab Atorvastatin [Lipitor] 80 mg PO DAILY 90 Days #90 tab Metoprolol Succinate (ER) [Toprol XL] 12.5 mg PO DAILY 90 Days #90 tab Nitroglycerin Sl Tabs [Nitrostat] 0.4 mg SL Q5M PRN PRN Reason: Chest Pain Discharge Medication List Adhs 2 tab PO BID 05/21/23 [History] Aspirin EC [Ecotrin Low Dose] 81 mg PO DAILY 05/21/23 [History] Bio-3b-G 4 tab PO BID 05/21/23 [History] Bio-C-Plus 1 - 3 tab PO DAILY 05/21/23 [History] De-Stress 1 tab PO DAILY 05/21/23 [History] Purified Chondroitin Sulfates 1 - 3 tab PO DAILY 05/21/23 [History] Super Beets Chew 2 tab PO HS 05/21/23 [History] Atorvastatin [Lipitor] 80 mg PO DAILY 90 Days #90 tab 05/25/23 [Rx] Dapagliflozin Propanediol [Farxiga] 10 mg PO DAILY 90 Days #90 tab 05/25/23 [Rx] Metoprolol Succinate (ER) [Toprol XL] 12.5 mg PO DAILY 90 Days #90 tab 05/25/23 [Rx] Ticagrelor [Brilinta] 90 mg PO BID 60 Days #180 tab 05/25/23 [Rx] Ht Combination Drops 2 ml PO HS 06/22/23 [History] Nitroglycerin Sl Tabs [Nitrostat] 0.4 mg SL Q5M PRN 06/22/23 [History] Follow up Appointment(s)/Referral(s): None,Stated [Primary Care Provider] - 1-2 days
--- NOTE | 2023-06-24 14:55 | P.PN ---
Subjective Progress Note Date: 06/24/23 Patient is a 57-year-old white male with past medical history significant for multivessel coronary artery disease, recent non-ST elevation FL with underlying ischemic cardiomyopathy, chronic ongoing tobacco dependence, mild COPD. Patient was recently treated at our facility for acute FL and is post PCI utilizing Impella device, with penumbra aspiration thrombectomy of the LAD, PCI/stenting of the left main into the LAD, PTCA of the circumflex, and stenting of the RCA. Patient was noted to have severe ischemic cardiomyopathy with an ejection fraction of 10 to 15% at that time and was discharged with a LifeVest on 05/26/2023. He has reportedly followed up with his practicing urologist Dr. Urbano since then. He was on a regimen of beta-dewayne, Farxiga, and Brilinta. His most recent echocardiogram estimated a left ventricular ejection fraction of 20 to 25%. Since his hospital discharge, the patient reportedly has been feeling well. Yesterday afternoon the patient was visited by a family friend. The patient was noted to be unresponsive while lying on the couch. The friend did call EMS. On arrival, the patient had his LifeVest on and blue dye was noted. An interrogation was performed which showed an episode of ventricular tachycardia which was treated once with defibrillation. Patient is now alert and oriented. He is in no distress. He states that just prior to the event he felt flushed and was sweaty. He did have some brief nausea without emesis. He does not remember much during or after the episode. He denies any current chest pain, heart palpitations, lightheadedness, shortness of breath, cough. He is on 3 L/min nasal cannula. Blood pressure was noted to be marginal on arrival, and the patient will be started on norepinephrine infusion to maintain a MAP of 65 mmHg or greater. A right IJ triple-lumen central line catheter was placed by the ER physician. EKG shows normal sinus rhythm with T wave inversion in the lateral leads. No other obvious acute ischemic changes. No further episodes of ventricular arrhythmias. Patient was loaded with p.o. amiodarone. Chest CTA did not show any evidence of pulmonary embolism. It did show cardiomegaly, pulmonary vascular congestion, and scattered groundglass opacities. There was near complete occlusion of the left subclavian artery there was a partially visualized infrarenal abdominal aortic aneurysm with mural thrombus measuring up to 5.7 x 4.9 cm. Troponins elevated at 0.164 and 0.158 respectively. NT proBNP 7120. CBC on arrival: WBC count 14.8, hemoglobin 14.1, hematocrit 44.7, platelets 225. D-dimer was elevated 6.4. BMP on arrival: Sodium 138, potassium 4.5, chloride 103, serum bicarb 15, BUN 18, creatinine 1.08, glucose 197. Lactic 0.8. Patient's condition is currently guarded, and he will be admitted admitted to the intensive care unit once bed available. The patient is seen today June 24, 2023 in follow-up in the emergency department. He is currently sitting up in the stretcher. Awake and alert in no acute distress. He is maintaining O2 saturation in the 90s on room air. He has been afebrile. Hemodynamically stable. He has been off norepinephrine. White count 11.7. Hemoglobin 13.2. Platelets 177. Sodium 137. Potassium 4.1. Bicarb 20. BUN 16. Creatinine 0.80. He remains on a heparin drip. He is continued on amiodarone and Lopressor. No further V. tach. No chest pain. No palpitations, dizziness or lightheadedness. Echocardiogram continues to show impaired left ventricular systolic function with ejection fraction 25 to 30%. Objective - Vital Signs Vital signs: Vital Signs Temp 98.6 F 06/24/23 07:30 Pulse 78 06/24/23 14:25 Resp 18 06/24/23 14:25 BP 112/83 06/24/23 14:25 Pulse Ox 94 L 06/24/23 14:25 FiO2 Intake & Output 06/23/23 06/24/23 06/24/23 18:59 06:59 18:59 Intake Total 40.751 102.804 Balance 40.751 102.804 Intake: Intake, IV Titration 40.751 102.804 Amount Heparin Sod,Pork in 0.45% 64.463 NaCl 25,000 unit In 0.45 % NaCl 1 250ml.bag @ 12 UNITS/KG/HR 9.253 mls/hr IV .Q24H [facility] Rx#: [id number] Norepinephrine 32 mg In 40.751 Sodium Chloride 0.9% 218 ml @ 0.03 MCG/KG/MIN 1. 084 mls/hr IV .Q24H ONE Rx#:[id number] Norepinephrine 4 mg In 38.341 Sodium Chloride 0.9% 250 ml @ 0.03 MCG/KG/MIN 8. 814 mls/hr IV .Q24H [facility] Rx#:[id number] - Exam GENERAL EXAM: Alert, very pleasant 57-year-old male, comfortable in no apparent distress. HEAD: Normocephalic and atraumatic EYES: Normal reaction of pupils, equal size. NOSE: Clear with pink turbinates. THROAT: No erythema or exudates. NECK: No masses, mild JVD CHEST: No chest wall deformity. LUNGS: Equal air entry with no crackles, wheeze, rhonchi or dullness. On 3 L/min nasal cannula. No conversational dyspnea. CVS: Distant heart sounds, S1 and S2 normal with no audible murmur, regular rhythm. No extra heart sounds ABDOMEN: No hepatosplenomegaly, active bowel sounds, no guarding or rigidity. SPINE: No scoliosis or deformity SKIN: No rashes CENTRAL NERVOUS SYSTEM: No focal deficits, tone is normal in all 4 extremities. EXTREMITIES: There is mild nonpitting bilateral lower extremity edema. clubbing, or cyanosis. Peripheral pulses are intact. - Labs CBC & Chem 7: 06/24/23 03:58 06/24/23 03:58 Labs: Abnormal Lab Results - Last 24 Hours (Table) 06/23/23 06/23/23 06/24/23 Range/Units 14:56 20:03 03:58 WBC 11.0 H 11.7 H (3.8-10.6) k/uL RBC 4.07 L 4.18 L (4.30-5.90) m/uL Hct 38.6 L (39.0-53.0) % Neutrophils # 8.6 H 8.8 H (1.3-7.7) k/uL APTT 43.8 H (22.0-30.0) sec Chloride (98-107) mmol/L Carbon Dioxide (22-30) mmol/L AST (17-59) U/L Total Protein (6.3-8.2) g/dL Albumin (3.5-5.0) g/dL 06/24/23 06/24/23 Range/Units 03:58 03:58 WBC (3.8-10.6) k/uL RBC (4.30-5.90) m/uL Hct (39.0-53.0) % Neutrophils # (1.3-7.7) k/uL APTT 61.1 H (22.0-30.0) sec Chloride 110 H (98-107) mmol/L Carbon Dioxide 20 L (22-30) mmol/L AST 74 H (17-59) U/L Total Protein 5.8 L (6.3-8.2) g/dL Albumin 3.4 L (3.5-5.0) g/dL Assessment and Plan Assessment: Severe ischemic cardiomyopathy, with estimated left ventricular ejection fraction still impaired at 25-30%, patient's LifeVest did fire outpatient after identifying sustained run of ventricular tachycardia. Hypotension and cardiogenic shock, currently requiring the addition of vasopressors, recovered Acute hypoxemic respiratory failure, secondary to exacerbation of systolic congestive heart failure, recovered Elevated troponins, rule out non-ST elevation FL, but likely related to cardiac defibrillation Coronary artery disease, with recent history of non-ST elevation myocardial infarction, status post Impella placement, penumbra aspiration thrombectomy of the LAD, PCI/stenting of the left main into the LAD, PTBA of the circumflex, and stenting of the RCA Leukocytosis, likely reactive Elevated D-dimer, pulmonary embolism not found on chest CTA Left subclavian steal syndrome, with near complete occlusion of the left subclavian artery just past its origin with calcified plaque Infrarenal abdominal aortic aneurysm, with mural thrombus measuring up to 5.7 x 4.9 cm History of hyperlipidemia Chronic ongoing tobacco dependence, reportedly down to 1 cigarette/day Mild COPD, stable Marijuana smoker Plan: The patient was seen and evaluated Labs and medications reviewed Improved enough norepinephrine Continued on heparin drip Continued on amiodarone and beta-blockers Plan is for transfer to [facility] once a bed is available I have personally seen and examined the patient, performed the documentation and the assessment and plan as written. Number of minutes spent on the visit: 10.
[2023-06-24 16:29] VITALS: RESP 16; TEMP 98.7
[2023-06-24] MEDS: FOLIC ACID 1 MG TAB PO SCH (16:52)
[2023-06-24 18:32] VITALS: BP 112/76; PULSE 77
[2023-06-25] MEDS ORDERED: THIAMINE 100 MG TAB PO SCH (13:43)
[2023-06-25] MEDS ORDERED: MULTIVITAMINS, THERA 1 EACH TAB PO SCH (13:43)
== END 2023-06-24 20:37 | disposition short-term general hospital (02) | DRG 280 ==
LOC: EC 16:04 → 2SICU 19:44 → 3SCARD 06-24 08:32
PROVIDERS: ADMIT Family Medicine; ATTEND Family Medicine
PROC: 3E033XZ Introduction of Vasopressor into Peripheral Vein, Percutaneous Approach (ICD-10-PCS; principal; 2023-06-23)
DX: I25.5 Ischemic cardiomyopathy (principal); I50.23 Acute on chronic systolic (congestive) heart failure; I21.4 Non-ST elevation (NSTEMI) myocardial infarction; R57.0 Cardiogenic shock; J96.01 Acute respiratory failure with hypoxia; I47.20 Ventricular tachycardia, unspecified; G45.8 Other transient cerebral ischemic attacks and related syndromes; I74.09 Other arterial embolism and thrombosis of abdominal aorta; I25.10 Atherosclerotic heart disease of native coronary artery without angina pectoris; J44.9 Chronic obstructive pulmonary disease, unspecified; E78.5 Hyperlipidemia, unspecified; F17.210 Nicotine dependence, cigarettes, uncomplicated; I11.0 Hypertensive heart disease with heart failure; I71.43 Infrarenal abdominal aortic aneurysm, without rupture; Z95.5 Presence of coronary angioplasty implant and graft; Z79.02 Long term (current) use of antithrombotics/antiplatelets; Z79.82 Long term (current) use of aspirin; Z79.84 Long term (current) use of oral hypoglycemic drugs; Z79.899 Other long term (current) drug therapy
CPT/HCPCS: 36415; 36556; 71045; 71275; 80048; 80053; 80306; 80320; 81003; 82550; 83605; 83880; 84484; 85025; 85379; 85610; 85730; 93005; 93308; 96361; 96365; 96366; 96367; 96368; 99291

== ENCOUNTER → 2024-11-03 | Outpatient (CLI) | payer OTHER ==
--- NOTE | 2024-11-03 14:44 | CTL ---
EXAMINATION TYPE: CT Low Dose Lung DATE OF EXAM ORDERED: 11/03/2024 COMPARISON: 01/20/2022 CLINICAL INDICATION: Male, 59 years old with history of Z12.2 LUNG CA SCR F17.210 CURRENT SMOKER; [facility] , SMOKER, Lung cancer screening, History of Smoking/tobacco use. TECHNIQUE: Low dose computed tomography scan was performed through the chest at 1 mm thick sections a nd reconstructed images in multiple planes at 1 mm and [address] DLP: 100.[address] CTDI: 2.4 mGy Automated exposure control for dose reduction was used. CT DIAGNOSTIC QUALITY: Satisfactory Findings: There are multiple stable pulmonary nodules. The index nodule is a 6 mm left lower lobe nodule. The r emaining nodules are sub-6 mm.. There is no airspace consolidation or abnormal interstitial density. There has been interval development of moderate bilateral pleural effusions. There is no pneumothorax . The great vessels and heart are normal in size. Evaluation for adenopathy is limited due to lack of IV contrast but there has been interval developme nt of a 13.4 mm short axis precarinal lymph node and a approximate 6 mm subcarinal lymph node. Limited scanning through the upper abdomen reveals the upper aspect of an aortic stent. There are no focal osseous lesions. IMPRESSION: 1. Lung RADS category 2 benign. Stable 6 mm or less pulmonary nodules. 2. Lung rads S modifier: Interval development of moderate bilateral pleural effusions and mediastinal adenopathy and follow-up as indicated. Malignancy not excluded. [facility], , 11/03/2024 2:42 PM
== END | disposition home or self-care (01) ==
LOC: RADCTMAIN 14:06
PROVIDERS: ATTEND Family Medicine
DX: Z12.2 Encounter for screening for malignant neoplasm of respiratory organs (principal); F17.210 Nicotine dependence, cigarettes, uncomplicated; R91.8 Other nonspecific abnormal finding of lung field; J90 Pleural effusion, not elsewhere classified
CPT/HCPCS: 71271